=== PATIENT | female | born 1935 | race Caucasian/White ===

== ENCOUNTER 2020-08-11 22:59 | Emergency (ER) | payer MEDICARE, SELFPAY ==
[2020-08-11 23:09] VITALS: BP 209/92; PULSE 95; RESP 16; TEMP 36.8; O2SAT 96; BMI 22.8
[2020-08-11 23:43] VITALS: BP 209/97; PULSE 87; RESP 16; TEMP 36.8; O2SAT 94
--- NOTE | 2020-08-11 23:55 | ED_ITS ---
HPI - General Adult General: Chief complaint: General Medical Stated complaint: high BP/head ache Time Seen by Provider: 08/11/20 23:24 Source: patient and family Mode of arrival: ambulatory Limitations: no limitations History of Present Illness: HPI narrative: Patient is an 84-year-old female who presents to ED today along with her son for complaints of hypertension. Patient tells me several hours ago she began not feeling well . Patient is not able to tell me any specific complaints related to not feeling well apart from she did notice a headache. Asked her several times but could not elaborate further on what she means by not feeling well . She did state she felt anxious. Patient states she never had any episodes of chest pain, shortness of breath, difficulty breathing. Patient tells me she takes 1/2 of a 2.5mg lisinopril daily for her HTN. She states she normally does not check her blood pressure at home however earlier today she did and states it was 200s/100s so decided to come to ED for evaluation. Upon initial assessment she does tell me she is feeling better-less anxious and headache has improved slightly. PMH significant for: hypothyroidism, HTN, anxiety, and chronic back pain Onset (ago): hour(s) Relieving factors: none Exacerbating factors: none Associated symptoms: Reports headache(s); Deny chest pain, confusion, diaphoresis, dyspnea, malaise, nausea, rash, palpitations, syncope or vomiting Treatments prior to arrival: none Review of Systems Const: Denies: fever(s), chills, body aches, change in appetite, change in weight, fatigue, malaise, night sweats, diaphoresis or change in sleep pattern Eyes: Denies: change in vision, blurry vision, photophobia, eye discomfort, floaters or seeing flashes Card: Denies: chest pain, palpitations, irregular heart rhythm, edema, swelling of feet/ankles, lightheadedness, syncope, pre-syncope, dyspnea on exertion, orthopnea, leg pain with exertion or acrocyanosis Resp: Denies: dyspnea, productive cough, non-productive cough, hemoptysis or chest congestion GI: Denies: abdominal pain, nausea, vomiting or diarrhea : Denies: flank pain, dysuria or hematuria Musc: Denies: neck pain, back pain, extremity pain, extremity swelling, joint pain or joint swelling Skin/Breast: Denies: rash Neuro: Reports: headache(s); Denies: numbness in extremities, weakness in extremities, sensory changes, lack of coordination, difficulty walking, dizziness, confusion, behavioral changes, Slurred speech present, difficulty communicating thoughts or seizure-like activity Physical Exam Const: COMMON NORMALS: no acute distress, average body habitus, patient oriented x3, no limitations, healthy appearing, alert and well nourished GE NERAL APPEARANCE: cooperative ORIENTATION/CONSCIOUSNESS: Yes awake, Yes oriented to person, Yes oriented to place and Yes oriented to time Resp: COMMON NORMALS: normal respiratory effort and clear to auscultation bilaterally AUSCULTATION: clear to auscultation bilaterally Cardio: COMMON NORMALS: regular rate and regular rhythm RATE: regular rate RHYTHM: regular rhythm GI: COMMON NORMALS: Normal to inspection, nondistended, normoactive bowel sounds present, Soft to palpation, non-tender, No hepatosplenomegaly present and no masses INSPECTION: Yes normal to inspection PALPATION: Yes Soft to palpation, Yes No hepatosplenomegaly present and No Pulsatile mass present Back/Pelvis: COMMON NORMALS: thoracic and lumbar spine normal to inspection, no thoracic nor lumbar tenderness and thoraco-lumbar ROM normal Extremity: COMMON NORMALS: normal to inspection Neuro: SIMONE COMA SCALE: document GCS findings [place] coma scale eye opening: Spontaneous Simone coma scale verbal response: Orientated [place] coma scale motor response: Obey commands Simone coma scale total score: 15 COMMON NORMALS: patient oriented x3, CN's II-XII intact bilaterally, moves all extremities, no focal motor deficits and no sensory deficits noted SENSORIUM/ORIENTATION: Yes alert, Yes oriented to person, Yes oriented to place and Yes oriented to time Skin: COMMON NORMALS: no rashes or lesions noted GENERAL SKIN EXAM: no rashes or lesions noted Course Vital Signs: Vital signs: Vital Signs Temperature 98.2 F 08/12/20 00:13 Pulse Rate 87 08/12/20 00:13 Respiratory Rate 16 08/12/20 00:13 Blood Pressure 182/75 08/12/20 01:00 Pulse Oximetry 94 08/12/20 00:13 MDM - General Adult MDM Narrative: Medical decision making narrative: Patient's vitals are stable. Labs are non-concerning. UA with possible infection however she is completely asymptomatic. Will culture and can call if positive. EKG without ischemic changes. CXR normal. CT head normal. Blood pressure down with meds here. Recommend she start taking her full 2.5mg lisinopril dose and keep blood pressure log to followup with PCP within a week so they can make adjustments. Patient and son verbalize understanding. Return to ED precautions given. Lab Data: Attestation: I reviewed the patient's lab results. Labs: Lab Results 08/12/20 08/12/20 08/12/20 Range/Units 00:24 00:24 00:24 WBC 4.7 (4.0-10.0) 10^3/ uL RBC 4.68 (4.1-5.3) 10^6/u L Hgb 13.5 (11.5-15.3) g/dL Hct 40.3 (37.0-47.0) % MCV 86.1 (81-99) fL MCH 28.8 (28.0-34.0) pg MCHC 33.5 (30.0-36.0) g/dL RDW 12.3 (12.1-15.1) % Plt Count 266 (130-400) 10^3/c mm MPV 8.9 (7.4-10.4) fL Neut % (Auto) 56.0 % Lymph % (Auto) 31.8 % [place] % (Auto) 10.7 % Eos % (Auto) 0.9 % Baso % (Auto) 0.2 % Neut # (Auto) 2.62 (1.8-7.7) 10^3/u L Lymph # (Auto) 1.5 (0.8-4.8) 10^3/u L [place] # (Auto) 0.5 (0.2-0.9) 10^3/u L Eos # (Auto) 0.0 (0.0-0.8) 10^3/u L Baso # (Auto) 0.0 (0.0-0.1) 10^3/u L Nucleated RBC % (a uto) 0 % Nucleated RBCs # 0.0 /100WBC Sodium 137 (136-145) mmol/L Potassium 4.1 (3.5-5.1) mmol/L Chloride 103 (98-107) mmol/L Carbon Dioxide 25 (22-29) mmol/L Anion Gap 13.1 (5-19) BUN 17 (8-23) mg/dL Creatinine 0.6 (0.5-0.9) mg/dL GFR Calculation Not Reportable Glucose 111 (65-115) mg/dL Calculated Osmolal ity 286 (285-295) mOsm/k g Calcium 9.1 (8.5-10.5) mg/dL Total Bilirubin 0.3 (0.15-1.2) mg/dL AST 17 (0-32) U/L ALT 14 (0-33) U/L Alkaline Phosphata se 98 (35-105) IU/L Troponin T Baselin e 6 (0-10) ng/L Total Protein 7.1 (6.6-8.7) g/dL Albumin 3.7 (3.5-5.2) g/dL Globulin 3.4 (1.3-4.6) g/dL Urine Color (Yellow) Urine Appearance (CLEAR) Urine pH (5-7) Ur Specific Gravit y (1.005-1.030) Urine Protein (Negative) Urine Glucose (UA) (Normal) Urine Ketones (Negative) Urine Blood (Negative) Urine Nitrate (Negative) Urine Bilirubin (Negative) Urine Urobilinogen (Negative) mg/dL Ur Leukocyte Gin ase (Negative) Urine RBC (0-2) /hpf Urine WBC (0-5) /hpf Ur Squamous Epith Cells (0-5) /hpf Amorphous Sediment Urine Bacteria (NONE) /hpf 08/12/20 Range/Units 01:07 WBC (4.0-10.0) 10^3/ uL RBC (4.1-5.3) 10^6/u L Hgb (11.5-15.3) g/dL Hct (37.0-47.0) % MCV (81-99) fL MCH (28.0-34.0) pg MCHC (30.0-36.0) g/dL RDW (12.1-15.1) % Plt Count (130-400) 10^3/c mm MPV (7.4-10.4) fL Neut % (Auto) % Lymph % (Auto) % [place] % (Auto) % Eos % (Auto) % Baso % (Auto) % Neut # (Auto) (1.8-7.7) 10^3/u L Lymph # (Auto) (0.8-4.8) 10^3/u L [place] # (Auto) (0.2-0.9) 10^3/u L Eos # (Auto) (0.0-0.8) 10^3/u L Baso # (Auto) (0.0-0.1) 10^3/u L Nucleated RBC % (a uto) % Nucleated RBCs # /100WBC Sodium (136-145) mmol/L Potassium (3.5-5.1) mmol/L Chloride (98-107) mmol/L Carbon Dioxide (22-29) mmol/L Anion Gap (5-19) BUN (8-23) mg/dL Creatinine (0.5-0.9) mg/dL GFR Calculation Glucose (65-115) mg/dL Calculated Osmolal ity (285-295) mOsm/k g Calcium (8.5-10.5) mg/dL Total Bilirubin (0.15-1.2) mg/dL AST (0-32) U/L ALT (0-33) U/L Alkaline Phosphata se (35-105) IU/L Troponin T Baselin e (0-10) ng/L Total Protein (6.6-8.7) g/dL Albumin (3.5-5.2) g/dL Globulin (1.3-4.6) g/dL Urine Color Yellow (Yellow) Urine Appearance Sl hazy (CLEAR) Urine pH 7 (5-7) Ur Specific Gravit y 1.005 (1.005-1.030) Urine Protein Neg (Negative) Urine Glucose (UA) Norm (Normal) Urine Ketones Negative (Negative) Urine Blood 3+ H (Negative) Urine Nitrate Negative (Negative) Urine Bilirubin Neg (Negative) Urine Urobilinogen Norm (Negative) mg/dL Ur Leukocyte Gin ase Negative (Negative) Urine RBC 5-10 H (0-2) /hpf Urine WBC 25-40 H (0-5) /hpf Ur Squamous Epith Cells 0-4 H (0-5) /hpf Amorphous Sediment Not Reportable Urine Bacteria 2+ H (NONE) /hpf Imaging Data^: CT Head: Radiologist's impression: [address] [id number] Scan ReportSigned Patient: LindyJosue edgara NUnit #: [id number]: 1935cct#:[id number]/Sex: 84 / FADM Date: 08/11/20Loc: ERRoom/Bed:Attending Dr: Ordering Provider/Ordering MD: Caridad Ortiz Date of Service: 08/12/20 Procedure(s): CT head wo con* [id number] Accession Number(s): [id number] Report Number: [id number] PROCEDURE INFORMATION: Exam: CT Head Without Contrast Exam date and time: 08/12/2020 12:17 AM Age: 84 years old Clinical indication: Pain; Vascular; Patient HX: Headache with hypertension TECHNIQUE: Imaging protocol: Computed tomography of the head without contrast. Radiation optimization: All CT scans at this facility use at least one of these dose optimization techniques: automated exposure control; mA and/or kV adjustment per patient size (includes targeted exams where dose is matched to clinical indication); or iterative reconstruction. COMPARISON: No relevant prior studies available. RADIATION DOSE METRICS: Total DLP (mGy-cm): 851.01 FINDINGS: Brain: There is diffuse cerebral atrophy and chronic microvascular white matter disease. There is no acute intracranial hemorrhage. Cerebral ventricles: There is moderate ex vacuo dilation of the lateral ventricles. Basal cisterns are unremarkable. Paranasal sinuses: The paranasal sinuses are clear. Mastoid air cells: The mastoid air cells are clear. Bones/joints: The calvarium is intact. Soft tissues: The visible extracranial soft tissues are unremarkable. CT/CT head wo con* [id number] IMPRESSION: No acute intracranial abnormality. Radiation Dose CTDIVOL = (mGy): DLP = 851.01 (mGy-cm) Dictated By:North Lombardo MDSigned By:North Lombardo MDSigned Date/Time:08/12/20 0103DD/ 0102 CXR: Radiologist's impression: [facility] [address] [place] [address] XRay Report Signed Patient: Brynn Israel Unit #: [id number] : 1935 Age/Sex: 84 / F ADM Date: 08/11/20 Loc: ER Room/Bed: Attending Dr: Ordering Provider/Ordering MD: Caridad Ortiz Date of Service: 08/12/20 Procedure(s): XR chest 1V portable [id number] Accession Number(s): [id number] Report Number: [id number] PROCEDURE INFORMATION: Exam: XR Chest Exam date and time: 08/12/2020 12:18 AM Age: 84 years old Clinical indication: Other: Hypertensive TECHNIQUE: Imaging protocol: XR of the chest. Views: 1 view. COMPARISON: No relevant prior studies available. FINDINGS: Lungs: Low lung volumes. Crowding of central interstitial markings. No focal consolidation. Pleural spaces: There is no pleural effusion or pneumothorax. Heart/Mediastinum: Cardiomediastinal contours are unremarkable. Bones/joints: Bones are unremarkable. XR/XR chest 1V portable [id number] IMPRESSION: No acute findings. Dictated By: North Lombardo MD Signed By: North Lombardo MD Signed Date/Time: 08/12/20103 DD/ 2 EKG Data^: EKG 1: EKG interpretation date: 08/12/20 EKG interpretation time: 00:17 Interpretation: Sinus rhythm Rate [address] elevation or depression changes noted Computer generated interpretation: Head CT 08/12/20 00:17 IMPRESSION: No acute intracranial abnormality. Radiation Dose CTDIVOL = (mGy): DLP = 851.01 (mGy-cm) Chest X-Ray 08/12/20 00:18 IMPRESSION: No acute findings. EKG 2: EKG interpretation date: 08/12/20 EKG interpretation time: 01:56 Interpretation: Sinus bradycardia Rate [address] elevation depression changes noted No acute changes were noted with EKG performed earlier on same visit Computer generated interpretation: Head CT 08/12/20 00:17 IMPRESSION: No acute intracranial abnormality. Radiation Dose CTDIVOL = (mGy): DLP = 851.01 (mGy-cm) Chest X-Ray 08/12/20 00:18 IMPRESSION: No acute findings. Discharge Plan Discharge Patient Disposition: Home Clinical Impression: Hypertension Qualifiers: Hypertension type: essential hypertension Qualified Code(s): I10 - Essential (primary) hypertension Condition: Stable Discharge Orders: Discharge ED (Routine); Ordered 08/12/20 Ordered By: Caridad Ortiz Referrals: Francisco Monsivais MD [Primary Care Provider] - Patient Instructions: Chronic Hypertension (ED), Hypertension (ED) Activity Restrictions/Additional Instructions: As we discussed please start taking your full 2.5 mg lisinopril dose. Keep a blood pressure log twice daily and follow-up with primary care within a week to discuss results. Please return to the emergency department for severe headache, chest pain, shortness of breath, difficulty breathing, visual changes, lightheadedness/dizziness, or passing out episodes. Coding Level of Care Code ED Circle Saw Operator for Chg Fwd Exam Comprehensive
[2020-08-12 00:13] VITALS: BP 175/87; PULSE 87; RESP 16; TEMP 36.8; O2SAT 94
--- NOTE | 2020-08-12 00:17 | CTR_ITS ---
PROCEDURE INFORMATION: Exam: CT Head Without Contrast Exam date and time: 08/12/2020 12:17 AM Age: 84 years old Clinical indication: Pain; Vascular; Patient HX: Headache with hypertension TECHNIQUE: Imaging protocol: Computed tomography of the head without contrast. Radiation optimization: All CT scans at this facility use at least one of these dose optimization techniques: automated exposure control; mA and/or kV adjustment per patient size (includes targeted exams where dose is matched to clinical indication); or iterative reconstruction. COMPARISON: No relevant prior studies available. RADIATION DOSE METRICS: Total DLP (mGy-cm): 851.01 FINDINGS: Brain: There is diffuse cerebral atrophy and chronic microvascular white matter disease. There is no acute intracranial hemorrhage. Cerebral ventricles: There is moderate ex vacuo dilation of the lateral ventricles. Basal cisterns are unremarkable. Paranasal sinuses: The paranasal sinuses are clear. Mastoid air cells: The mastoid air cells are clear. Bones/joints: The calvarium is intact. Soft tissues: The visible extracranial soft tissues are unremarkable. CT/CT head wo con* [id number] IMPRESSION: No acute intracranial abnormality. Radiation Dose CTDIVOL = (mGy): DLP = 851.01 (mGy-cm)
--- NOTE | 2020-08-12 00:18 | XRR_ITS ---
PROCEDURE INFORMATION: Exam: XR Chest Exam date and time: 08/12/2020 12:18 AM Age: 84 years old Clinical indication: Other: Hypertensive TECHNIQUE: Imaging protocol: XR of the chest. Views: 1 view. COMPARISON: No relevant prior studies available. FINDINGS: Lungs: Low lung volumes. Crowding of central interstitial markings. No focal consolidation. Pleural spaces: There is no pleural effusion or pneumothorax. Heart/Mediastinum: Cardiomediastinal contours are unremarkable. Bones/joints: Bones are unremarkable. XR/XR chest 1V portable [id number] IMPRESSION: No acute findings.
[2020-08-12 00:31] LABS: Basophils % 0.2 %; Eosinophils % 0.9 %; Hematocrit 40.3 % (37.0-47.0); Hemoglobin 13.5 g/dL (11.5-15.3); Lymphocytes # 1.5 10^3/uL (0.8-4.8); Lymphocytes % 31.8 %; Mean Corpuscular HGB Conc 33.5 g/dL (30.0-36.0); Mean Corpuscular Hemoglobin 28.8 pg (28.0-34.0); Mean Corpuscular Volume 86.1 fL (81-99); Mean Platelet Volume 8.9 fL (7.4-10.4); Monocytes # 0.5 10^3/uL (0.2-0.9); Monocytes % 10.7 %; Neutrophils # 2.62 10^3/uL (1.8-7.7); Nucleated Red Blood Cells % 0 %; Platelet Count 266 10^3/cmm (130-400); Red Blood Count 4.68 10^6/uL (4.1-5.3); Red Cell Distribution Width 12.3 % (12.1-15.1); White Blood Count 4.7 10^3/uL (4.0-10.0)
[2020-08-12 00:50] LABS: Troponin(5th) Baseline 6 ng/L (0-10)
[2020-08-12 00:53] LABS: Alanine Aminotransferase 14 U/L (0-33); Albumin Level 3.7 g/dL (3.5-5.2); Alkaline Phosphatase 98 IU/L (35-105); Anion Gap 13.1 (5-19); Aspartate Amino Transferase 17 U/L (0-32); Blood Urea Nitrogen 17 mg/dL (8-23); Calcium 9.1 mg/dL (8.5-10.5); Carbon Dioxide 25 mmol/L (22-29); Chloride 103 mmol/L (98-107); Globulin 3.4 g/dL (1.3-4.6); Glucose 111 mg/dL (65-115); Osmolality Calculated 286 mOsm/kg (285-295); Potassium 4.1 mmol/L (3.5-5.1); Sodium 137 mmol/L (136-145); Total Bilirubin 0.3 mg/dL (0.15-1.2); Total Protein 7.1 g/dL (6.6-8.7)
[2020-08-12 01:00] VITALS: BP 182/75
[2020-08-12] MEDS: cloNIDine 0.1 mg Tablet PO (01:00)
--- NOTE | 2020-08-12 01:10 | PC.NURSE ---
in and out cath completed for UA. pt tolerated well
[2020-08-12 01:21] LABS: Add Urine Culture? Yes; Add Urine Microscopic? YES; Bacteria Urine 2+ /hpf; Bilirubin Urine Neg (Negative); Blood Urine 3+ (Negative); Glucose Urine UA Norm (Normal); Ketones Urine Negative (Negative); Leukocyte Esterase Urine Negative (Negative); Nitrate Urine Negative (Negative); Protein Urine Neg (Negative); Specific Gravity, Urine 1.005 (1.005-1.030); Squamous Epithelial Cell Urine 0-4 /hpf (0-5); Urine Appearance SL Hazy (CLEAR); Urine Color Yellow (Yellow); Urobilinogen Urine Norm (Negative); WBC Urine 25-40 /hpf (0-5); pH Urine 7 (5-7)
[2020-08-12] MEDS: labetalol 5 mg/mL SDV 20mL 10 MG IVP (01:39)
--- NOTE | 2020-08-12 01:55 | ECG_ITS ---
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 Measurements Intervals [place] Rate: 57 P: 28 WI: 163 QRS: 17 QRSD: 96 T: 58 QT: 416 QTc: 406 Interpretive Statements SINUS BRADYCARDIA No previous ECG available for comparison Electronically Signed On 08-12-2020 18:30:55 CDT by Diego Zayas M.D. [email or web address]
[2020-08-12 02:00] VITALS: BP 140/53; PULSE 56; O2SAT 94
[2020-08-12 02:03] VITALS: BP 140/53; PULSE 58; RESP 16; TEMP 36.8; O2SAT 94
[2020-08-12 02:11] VITALS: BP 140/53; PULSE 58; RESP 16; TEMP 36.8; O2SAT 94
== END 2020-08-12 02:12 | disposition home or self-care (01) ==
PROVIDERS: Emergency Provider Physician Assistant; PCP Family Medicine
DX: I10 Essential (primary) hypertension (principal)
CPT/HCPCS: 70450; 71045; 80053; 81001; 84484; 85025; 87086; 93005; 96374; 99284; J3490

== ENCOUNTER 2021-10-06 22:27 | Observation (INO) | payer MEDICARE, SELFPAY ==
--- NOTE | 2021-10-06 22:33 | W.ED.CHESTPA ---
HPI - Chest Pain General: Chief Complaint: Chest Pain Stated Complaint: Chest tightness/Sob/Lower back pain Time Seen by Provider: 10/06/21 22:29 History of Present Illness: Ms. Israel is an 85-year-old lady with history of hypertension who presents to the emergency department due to back pain and chest pain. She reports onset of bilateral back pain starting yesterday without known specific provoking factors. It is subsequently radiated up to her chest today and she notes pressure in her chest. Mild associated shortness of breath. No other typical cardiac features. Denies frequent episodes of similar in the past. Intensity symptoms is moderate. Course has persisted. No other specific changes in health, exacerbating, or alleviating factors identified. Onset (ago): day(s) Timing of current episode: constant Prior episodes: No Onset: during rest Severity: moderate Quality: heaviness Relieving factors: nothing Exacerbating factors: nothing Associated symptoms: Reports dyspnea Review of Systems General: Reports: 10 or more systems reviewed and unremarkable except in HPI and below Resp: Reports: dyspnea PFSH ED PFSH: Medical History Anxiety and depression Hypertension Hypothyroidism Primary ureteral transitional cell carcinoma Large left distal ureteral mass confirmed via biopsy to be high-grade TCCA. Diagnosed September 2021 Urolithiasis Obstructing right distal ureteral stone required endoscopic laser lithotripsy September 2021. Transient stent Surgical History History of cholecystectomy History of hysterectomy Family History Son Diabetes Father , AT AGE 80 No problems noted. Mother , IN HER 76 MVA (motor vehicle accident) Social History Smoking and tobacco status: never smoked Second hand smoke exposure: No Alcohol intake: never Marital status: / Current occupational status: retired History of recent travel: No Physical Exam Const: COMMON NORMALS: alert GENERAL APPEARANCE: cooperative and well developed HENMT: COMMON NORMALS: normocephalic and atraumatic HEAD & SCALP: normocephalic and atraumatic Eye: COMMON NORMALS: conjunctivae normal CONJUNCTIVA: Yes conjunctivae normal SCLERA: sclerae normal Neck/C-Spine: COMMON NORMALS: supple GENERAL: Yes trachea midline Resp: COMMON NORMALS: normal respiratory effort and clear to auscultation bilaterally EFFORT & INSPECTION: Yes able to speak in complete sentences AUSCULTATION: clear to auscultation bilaterally Cardio: COMMON NORMALS: regular rate and regular rhythm RATE: regular rate RHYTHM: regular rhythm GI: COMMON NORMALS: Soft to palpation PALPATION: Yes Soft to palpation and No Tenderness to palpation present (GI) PERCUSSION: normal to percussion Extremity: GENERAL: Yes normal exam except as noted and No edema Neuro: COMMON NORMALS: moves all extremities SENSORIUM/ORIENTATION: Yes alert and No Orientation impaired Psych: COMMON NORMALS: mental status grossly normal and Normal thought process present THOUGHT PROCESS: Normal thought process present Course ED course: - Patient was seen and evaluated by me at bedside - Patient placed on cardiac monitors, IV access obtained - Initial evaluation notable for exam as above. Pain not worsened by palpation on physical exam. - Labs and xrays personally interpreted by me -Aspirin and symptom treatment ordered. - Labs notable for no leukocytosis, normal hemoglobin. Metabolic panel with some evidence of intravascular dehydration. Elevated TSH with mildly low free T4. Urinalysis with evidence of urinary tract infection and hematuria. - Imaging notable for no lobar consolidation or pneumothorax. CT chest abdomen pelvis without acute chest finding. There is severe left hydroureteronephrosis secondary to ovoid soft tissue filling defect in the distal left ureter raising concern for neoplasm. There is also moderate right hydronephrosis secondary to 7 mm stone in the distal right ureter. Results discussed with patient -Antibiotic ordered. Discussed with urology. - Upon serial reexamination after treatment the patient was somewhat improved - Based on patient history, evaluation, and testing as interpreted the most likely cause of the patient's condition is infected kidney stone and newly identified ureteral mass likely cancerous - The results of ED evaluation were discussed with the patient including plan for admission due to requirement for level of care not available if discharged to prevent significant worsening/deterioration. - Admitting service was contacted and Dr Melara with the hospitalist service agreed to admit the patient - Patient was admitted without further deterioration or significant events. Note: Click bubbles or prepopulated ferguson in note writing are used for assistance with data collection and billing and are inherently more limited than narrative and other text portions of this note. Please use narrative for additional clinical history and defer to narrative/free test for any case of contradictory information. If information appears in only free text or click bubble it should be considered present or absent as reported. Please contact note singer songwriter for clarifications of clinical information or contradictory information. MDM is a brief summary, contradictory or erroneous seeming information should be clarified and full note should be reviewed. Vital Signs: Vital signs: Vital Signs Temperature 97.4 F L 10/11/21 16:03 Pulse Rate 76 10/11/21 16:03 Respiratory Rate 18 10/11/21 16:03 Blood Pressure 140/75 10/11/21 16:03 Pulse Oximetry 92 10/11/21 16:03 Oxygen Delivery Me thod 10/11/21 11:27 MDM - Chest Pain Medical Decision Making 85-year-old lady presenting with back and chest pain associated with shortness of breath. Patient found to have infected kidney stone as well as likely newly discovered ureteral cancer. Started on antibiotics and admitted for definitive management with urology service consult. Medical Records I reviewed the patient's medical records. Lab Data I reviewed the patient's lab results. : 10/10/21 04:20 10/11/21 06:52 Radiology Impressions Chest X-Ray 10/06/21 22:34 IMPRESSION: Low lung volumes and bronchovascular crowding. Mild bibasilar opacities may represent atelectasis. Otherwise, no acute radiographic findings in the chest findings. Chest/Abdomen/Pelvis CT 10/07/21 02:03 IMPRESSION: No acute findings. IMPRESSION: 1. Severe left hydroureteronephrosis secondary to an ovoid soft tissue filling defect in the distal left ureter, raising concern for neoplasm, potentially a primary urothelial carcinoma. Recommend urology consultation. 2. Moderate right hydronephrosis secondary to a 7 mm stone in the distal right ureter. COMMENTS: Consistent with the [employer]'s Incidental Findings Committee white paper (J Am Sheila Radiol 2018): Any incidental renal lesion less than 1 cm or classified as too small to characterize, or any incidental cystic renal lesion characterized as simple-appearing, is likely benign. No follow-up imaging is recommended for these lesions per consensus recommendations based on imaging criteria. C-Arm Fluoroscopy 10/07/21 07:06 IMPRESSION: Distal right ureteral calculus. Placement of right ureteral stent. Lumbar Spine MRI 10/10/21 13:35 IMPRESSION: 1. Grade 2 anterolisthesis L5 on S1 with chronic spondylolysis. Moderate central canal stenosis at this level with impingement on the traversing S1 nerve roots. Moderate to severe bilateral bony foraminal narrowing. 2. Mild central canal stenosis L2-L3 and L3-L4 with narrowing of the subarticular recess bilaterally. 3. Acute appearing compression superior endplate L4 with mild loss vertebral body height measuring approximately 20%. This is stable since the recent CT 10/07/21. Mild associated edema. No significant retropulsion. 4. Chronic anterior wedging at L2 with endplate Schmorl's node. Modified Barium Swallow 10/10/21 14:17 IMPRESSION: 1. No aspiration or penetration identified. 2. Poor esophageal motility with to and fro spasm in the esophagus. 3. The patient experienced difficulty with the barium pill. The pill was retained in the distal esophagus after multiple swallowing attempts. A separate report of recommendations and findings will follow from the speech therapy service. Laboratory Results WBC 8.0 10^3/uL (4.0-10.0) 10/06/21 23:35 RBC 4.65 10^6/uL (4.1-5.3) 10/06/21 23:35 Hgb 13.9 g/dL (11.5-15.3) 10/06/21 23:35 Hct 41.8 % (37.0-47.0) 10/06/21 23:35 MCV 89.9 fl (81-99) 10/06/21 23:35 MCH 29.9 pg (28.0-34.0) 10/06/21 23:35 MCHC 33.3 g/dL (30.0-36.0) 10/06/21 23:35 RDW 12.0 % (12.1-15.1) L 10/06/21 23:35 Plt Count 265 10^3/cmm (130-400) 10/06/21 23:35 MPV 9.3 fL (7.4-10.4) 10/06/21 23:35 Neut % (Auto) 72.9 % 10/06/21 23:35 Lymph % (Auto) 16.9 % 10/06/21 23:35 [place] % (Auto) 7.9 % 10/06/21 23:35 Eos % (Auto) 1.5 % 10/06/21 23:35 Baso % (Auto) 0.3 % 10/06/21 23:35 Neut # (Auto) 5.80 10^3/uL (1.8-7.7) 10/06/21 23:35 Lymph # (Auto) 1.3 10^3/uL (0.8-4.8) 10/06/21 23:35 [place] # (Auto) 0.6 10^3/uL (0.2-0.9) 10/06/21 23:35 Eos # (Auto) 0.1 10^3/uL (0.0-0.8) 10/06/21 23:35 Baso # (Auto) 0.0 10^3/uL (0.0-0.1) 10/06/21 23:35 Nucleated RBC % (auto) 0 % 10/06/21 23:35 Nucleated RBCs # 0.0 /100WBC 10/06/21 23:35 Sodium 130 mmol/L (136-145) L 10/06/21 23:35 Potassium 4.0 mmol/L (3.5-5.1) 10/06/21 23:35 Chloride 93 mmol/L (98-107) L 10/06/21 23:35 Carbon Dioxide 28 mmol/L (22-29) 10/06/21 23:35 Anion Gap 13.0 (5-19) 10/06/21 23:35 BUN 23 mg/dL (8-23) 10/06/21 23:35 Creatinine 0.8 mg/dL (0.5-0.9) 10/06/21 23:35 GFR Calculation Not Reportable 10/06/21 23:35 Glucose 104 mg/dL (65-115) 10/06/21 23:35 Calculated Osmolality 274 mOsm/kg (285-295) L 10/06/21 23:35 Calcium 10.3 mg/dL (8.5-10.5) 10/06/21 23:35 Total Bilirubin 0.2 mg/dL (0.15-1.2) 10/06/21 23:35 AST 21 U/L (0-32) 10/06/21 23:35 ALT 23 U/L (0-33) 10/06/21 23:35 Alkaline Phosphatase 129 IU/L (35-105) H 10/06/21 23:35 Troponin T Baseline 7 ng/L (0-10) 10/06/21 23:35 Troponin T 120 Minute 6.47 ng/L (0-10) 10/07/21 01:25 Delta Troponin T -0.53 ABS# (0-10) L 10/07/21 01:25 NT-Pro-B Natriuret Pep 191 pg/mL (0-450) 10/06/21 23:35 Total Protein 7.7 g/dL (6.6-8.7) 10/06/21 23:35 Albumin 3.6 g/dL (3.5-5.2) 10/06/21 23:35 Globulin 4.1 g/dL (1.3-4.6) 10/06/21 23:35 Lipase 34 U/L (13-60) 10/06/21 23:35 TSH 29.17 uIU/mL (0.27-4.20) H 10/06/21 23:35 Free T4 0.78 ng/dL (0.82-1.77) L 10/06/21 23:35 Urine Color Yellow (Yellow) 10/07/21 03:15 Urine Appearance Cloudy (CLEAR) 10/07/21 03:15 Urine pH 6 (5-7) 10/07/21 03:15 Ur Specific [place] 1.005 (1.005-1.030) 10/07/21 03:15 Urine Protein Trace (Negative) 10/07/21 03:15 Urine Glucose (UA) Norm (Normal) 10/07/21 03:15 Urine Ketones Negative (Negative) 10/07/21 03:15 Urine Blood 3+ (Negative) H 10/07/21 03:15 Urine Nitrate Negative (Negative) 10/07/21 03:15 Urine Bilirubin Neg (Negative) 10/07/21 03:15 Urine Urobilinogen Norm mg/dL (Negative) 10/07/21 03:15 Ur Leukocyte Esterase 2+ (Negative) H 10/07/21 03:15 Urine RBC 5-10 /hpf (0-2) H 10/07/21 03:15 Urine WBC Too numerous to cnt /hpf (0-5) H 10/07/21 03:15 Ur Squamous Epith Cells 0-4 /hpf (0-5) H 10/07/21 03:15 Amorphous Sediment Not Reportable 10/07/21 03:15 Urine Bacteria 2+ /hpf (NONE) H 10/07/21 03:15 SARS-CoV-2 Ag (Rapid) Negative (Negative) 10/06/21 23:26 Critical Care Time Critical Care Time: Critical Care Time: Yes Total Critical Care Time: 35 Attestation: Due to a high probability of clinically significant, possibly life threatening deterioration, the patient required my highest level of attention and preparedness to intervene emergently and I personally spent this critical care time directly and personally managing the patient. This critical care time included obtaining a history; examining the patient; pulse oximetry; ordering and review of laboratory and imaging studies; arranging urgent treatment with development of a management plan; evaluation of patient's response to treatment; frequent reassessment; and, discussions with other providers as applicable. It was exclusive of separately billable procedures. Primary system involved is genitourinary and infectious Discharge Plan Discharge Patient Disposition: Admitted As Inpatient Admit Provider: Chi Melara Clinical Impression: Chest pain, Urinary tract infection, Right ureteral stone, Mass of ureter Condition: Stable Discharge Diet: Soft Mechanical Discharge Activity: Limit activity as instructed Coding Level of Care Code ED Instrument Maker for Seth Maza
--- NOTE | 2021-10-06 22:34 | XRR_ITS ---
PROCEDURE INFORMATION: Exam: XR Chest Exam date and time: 10/06/2021 11:21 PM Age: 85 years old Clinical indication: Shortness of breath; Chest pressure; Patient HX: C/O chest pain with SOB. History of breast cancer. TECHNIQUE: Imaging protocol: Radiologic exam of the chest. Views: 1 view. COMPARISON: CR XR chest 1V portable [id number] 08/12/2020 12:30 AM FINDINGS: Lungs: Low lung volumes and bronchovascular crowding. Mild bibasilar opacities, likely atelectasis.. Pleural spaces: No large pleural effusion. No pneumothorax. Heart/Mediastinum: The cardiomediastinal silhouette is stable in appearance. The thoracic aorta atherosclerotic Bones/joints: There are degenerative changes of the spine and shoulder joints. XR/XR chest 1V portable [id number] IMPRESSION: Low lung volumes and bronchovascular crowding. Mild bibasilar opacities may represent atelectasis. Otherwise, no acute radiographic findings in the chest findings.
--- NOTE | 2021-10-06 22:41 | ECG_ITS ---
[facility] Test Date: 2021-10-06 Pat Name: Brynn Israel Department: Room: Gender: Female Pavilion Cutter: : 1935 Requested By: Tulio Mead Order Number: [id number] Steven MD: Terell Ford M.D. Measurements Intervals [place] Rate: 75 P: 37 DC: 145 QRS: 5 QRSD: 87 T: 53 QT: 344 QTc: 386 Interpretive Statements SINUS RHYTHM, 75 bpm Compared to ECG 08/12/2020 01:56:02 Sinus bradycardia no longer present Electronically Signed On 10-07-2021 18:04:01 CDT by Terell Ford M.D. [id number] f
[2021-10-06 22:43] VITALS: PULSE 75; RESP 16; TEMP 37.2; O2SAT 98
[2021-10-06] MEDS: aspirin 81 mg Chew Tablet 324 MG PO (23:24)
[2021-10-06 23:44] LABS: Basophils % 0.3 %; Eosinophils # 0.1 10^3/uL (0.0-0.8); Eosinophils % 1.5 %; Hematocrit 41.8 % (37.0-47.0); Hemoglobin 13.9 g/dL (11.5-15.3); Lymphocytes # 1.3 10^3/uL (0.8-4.8); Lymphocytes % 16.9 %; Mean Corpuscular HGB Conc 33.3 g/dL (30.0-36.0); Mean Corpuscular Hemoglobin 29.9 pg (28.0-34.0); Mean Corpuscular Volume 89.9 fl (81-99); Mean Platelet Volume 9.3 fL (7.4-10.4); Monocytes # 0.6 10^3/uL (0.2-0.9); Monocytes % 7.9 %; Neutrophils % 72.9 %; Nucleated Red Blood Cells % 0 %; Platelet Count 265 10^3/cmm (130-400); Red Blood Count 4.65 10^6/uL (4.1-5.3)
[2021-10-06 23:49] VITALS: BP 175/65; PULSE 91; RESP 22; O2SAT 95
[2021-10-07] VITALS (26 sets, daily range): BP systolic 122–192; BP diastolic 61–83; PULSE 54–82; RESP 12–21; TEMP 36.2–37.1; O2SAT 91–97
--- NOTE | 2021-10-07 | SCC_ITS ---
Procedure done: 1. Cystoscopy, RIGHT: Retrograde, ureteroscopy, laser, stent 2. LEFT: Retrograde, ureteroscopy, biopsy of ureteral mass 3. Urologic fluoroscopy with intraoperative interpretation exclusive of radiology. 82.7 seconds of fluoroscopic guidance, for a cumulative dose of 13.90 mGy, was provided to Dr. Mays by the radiology department. C-arm images of the abdomen were saved for the patient's permanent record. BLAIRD
[2021-10-07 00:03] LABS: SARS Covid-2 Antigen Negative (Negative)
[2021-10-07 00:22] LABS: Troponin(5th) Baseline 7 ng/L (0-10)
[2021-10-07 00:32] LABS: Alanine Aminotransferase 23 U/L (0-33); Albumin Level 3.6 g/dL (3.5-5.2); Alkaline Phosphatase 129 IU/L (35-105); Aspartate Amino Transferase 21 U/L (0-32); Blood Urea Nitrogen 23 mg/dL (8-23); Calcium 10.3 mg/dL (8.5-10.5); Carbon Dioxide 28 mmol/L (22-29); Chloride 93 mmol/L (98-107); Globulin 4.1 g/dL (1.3-4.6); Glucose 104 mg/dL (65-115); Lipase 34 U/L (13-60); NT Pro B Type Natriuretic Pept 191 pg/mL (0-450); Osmolality Calculated 274 mOsm/kg (285-295); Sodium 130 mmol/L (136-145); Thyroid Stimulating Hormone 29.17 uIU/mL (0.27-4.20); Total Bilirubin 0.2 mg/dL (0.15-1.2); Total Protein 7.7 g/dL (6.6-8.7)
--- NOTE | 2021-10-07 00:34 | ECG_ITS ---
[facility] Test Date: 2021-10-07 Pat Name: Brynn Israel Department: Room: Gender: Female Nick Setter: : 1935 Requested By: Tulio Mead Order Number: [id number] Steven MD: Terell Ford M.D. Measurements Intervals [address] Rate: 68 P: 32 ID: [id number] QRS: 14 QRSD: 97 T: 52 QT: 376 QTc: 401 Interpretive Statements SINUS RHYTHM Compared to ECG 10/06/2021 22:41:03 No significant changes Electronically Signed On 10-07-2021 18:30:44 CDT by Terell Ford M.D. [id number]
[2021-10-07 01:21] LABS: Free T4 Free Thyroxine 0.78 ng/dL (0.82-1.77)
[2021-10-07 02:02] LABS: Troponin 5 2HR 6.47 ng/L (0-10)
--- NOTE | 2021-10-07 02:03 | CTR_ITS ---
PROCEDURE INFORMATION: Exam: CT Chest With Contrast; Diagnostic Exam date and time: 10/07/2021 2:16 AM Age: 85 years old Clinical indication: Abdominal pain; Generalized; Chest pressure; Prior surgery; Surgery type: Hysterectomy. Gb. Bladder sling. Patient HX: C/O chest, abd, and back pain. History of breast cancer. ; Additional info: Abd and chest pain, back pain, SOB TECHNIQUE: Imaging protocol: Diagnostic computed tomography of the chest with contrast. Radiation optimization: All CT scans at this facility use at least one of these dose optimization techniques: automated exposure control; mA and/or kV adjustment per patient size (includes targeted exams where dose is matched to clinical indication); or iterative reconstruction. Contrast material: OMNI 350; Contrast volume: 80 ml; Contrast route: INTRAVENOUS (IV); COMPARISON: CR (CHEST, ) 10/06/2021 11:21 PM RADIATION DOSE METRICS: Total DLP (mGy-cm): 771.01 FINDINGS: Lungs: Mild bibasilar atelectasis. Pleural spaces: Unremarkable. No pneumothorax. No pleural effusion. Heart: Unremarkable. No cardiomegaly. No pericardial effusion. Lymph nodes: Unremarkable. No enlarged lymph nodes. Vasculature: Unremarkable. No aortic aneurysm. Bones/joints: Unremarkable. No acute fracture. Soft tissues: Unremarkable. PROCEDURE INFORMATION: Exam: CT Abdomen And Pelvis With Contrast Exam date and time: 10/07/2021 2:16 AM Age: 85 years old Clinical indication: Abdominal pain; Generalized; Chest pressure; Prior surgery; Surgery type: Hysterectomy. Gb. Bladder sling. Patient HX: C/O chest, abd, and back pain. History of breast cancer. ; Additional info: Abd and chest pain, back pain, SOB TECHNIQUE: Imaging protocol: Computed tomography of the abdomen and pelvis with contrast. Radiation optimization: All CT scans at this facility use at least one of these dose optimization techniques: automated exposure control; mA and/or kV adjustment per patient size (includes targeted exams where dose is matched to clinical indication); or iterative reconstruction. Contrast material: OMNI 350; Contrast volume: 80 ml; Contrast route: INTRAVENOUS (IV); COMPARISON: CR (CHEST, ) 10/06/2021 11:21 PM RADIATION DOSE METRICS: Total DLP (mGy-cm): 771.01 FINDINGS: Liver: Normal. No mass. Gallbladder and bile ducts: Normal. No calcified stones. No ductal dilation. Pancreas: Normal. No ductal dilation. Spleen: Normal. No splenomegaly. Adrenal glands: Normal. No mass. Kidneys and ureters: Bilateral renal cysts. Nonobstructing right renal calculi measuring up to 8 mm. There appears to be moderate right hydronephrosis secondary to a 7 mm stone in the distal right ureter. There is severe left hydroureteronephrosis secondary to an ovoid soft tissue filling defect in the distal left ureter measuring up to 2.5 cm in length. There is some adjacent urothelial thickening enhancement as well as tiny calcifications in this region. Stomach and bowel: Duodenal diverticulum. No bowel obstruction. Colonic diverticulosis without diverticulitis. Appendix: No evidence of appendicitis. Intraperitoneal space: Unremarkable. No free air. No significant fluid collection. Vasculature: Heavy burden of atherosclerotic plaque in the abdominal aorta and branch vessels. No aneurysm. Lymph nodes: Unremarkable. No enlarged lymph nodes. Urinary bladder: Unremarkable as visualized. Reproductive: Hysterectomy. Bones/joints: Remote appearing compression fractures of L2 and L4. Bilateral L5 pars defects with grade 2 anterolisthesis of L5 on S1. Soft tissues: Within normal limits. CT/CT chest abd pel w con* IMPRESSION: No acute findings. IMPRESSION: 1. Severe left hydroureteronephrosis secondary to an ovoid soft tissue filling defect in the distal left ureter, raising concern for neoplasm, potentially a primary urothelial carcinoma. Recommend urology consultation. 2. Moderate right hydronephrosis secondary to a 7 mm stone in the distal right ureter. COMMENTS: Consistent with the [employer]'s Incidental Findings Committee white paper (J Am Sheila Radiol 2018): Any incidental renal lesion less than 1 cm or classified as too small to characterize, or any incidental cystic renal lesion characterized as simple-appearing, is likely benign. No follow-up imaging is recommended for these lesions per consensus recommendations based on imaging criteria.
[2021-10-07 02:17] LABS: Troponin 5 2HR Delta -0.53 ABS# (0-10)
[2021-10-07] MEDS: iohexol 350 mg/mL 100 mL Btl IV (02:23)
[2021-10-07] MEDS: orphenadrine 30 mg/mL Inj 2 mL 60 MG IVP (03:25)
[2021-10-07] MEDS: acetaminophen 1,000 MG/100 ML PIGGYBACK 400 MG IV (03:28)
[2021-10-07 03:31] LABS: Specific Gravity, Urine 1.005 (1.005-1.030); Urine Appearance Cloudy (CLEAR); Urine Color Yellow (Yellow); pH Urine 6 (5-7)
[2021-10-07 03:32] LABS: Add Urine Culture? Yes; Add Urine Microscopic? YES; Bacteria Urine 2+ /hpf; Bilirubin Urine Neg (Negative); Blood Urine 3+ (Negative); Glucose Urine UA Norm (Normal); Ketones Urine Negative (Negative); Leukocyte Esterase Urine 2+ (Negative); Nitrate Urine Negative (Negative); Protein Urine Trace (Negative); Squamous Epithelial Cell Urine 0-4 /hpf (0-5); Urobilinogen Urine Norm (Negative); WBC Urine TOO NUMEROUS TO CNT /hpf (0-5)
--- NOTE | 2021-10-07 04:34 | ECG_ITS ---
[facility] Test Date: 2021-10-07 Pat Name: Brynn Israel Department: Room: Gender: Female Cell Attendant: : 1935 Requested By: Tulio Mead Order Number: [id number] Steven MD: Terell Ford M.D. Measurements Intervals [place] Rate: 57 P: 31 [place]: 168 QRS: 14 QRSD: 97 T: 56 QT: 430 QTc: 419 Interpretive Statements SINUS BRADYCARDIA Compared to ECG 10/07/2021 00:42:17 Sinus rhythm no longer present Electronically Signed On 10-07-2021 18:32:47 CDT by Terell Ford M.D. [email or web address] [email or web address] general health centerHIGHVIEW HE[email or web address]/store/[id number]
[2021-10-07] MEDS: piperacillin-tazobactam 3.375 GM in sodium chloride 0.9% (plus) 50 ML IV ×2 (05:08→13:12)
[2021-10-07 05:56] LABS: Troponin 5 6HR 7.91 ng/L (0-10)
[2021-10-07 05:58] LABS: Troponin 5 6HR Delta 0.91 ng/L (0-12)
--- NOTE | 2021-10-07 05:58 | PM.HP ---
Providers/Chief Complaint Admitting Physician: Chi Melara MD Primary Care Provider: Francisco Monsivais MD Chief Complaint: Chest tightness/Sob/Lower back pain History of Present Illness Brynn Israel is a 85 year old female with a past medical history of hypothyroidism, hypertension, anxiety and depression, who presents to [facility] due to chest pain, severe low back pain, constipation, difficulty swallowing. Patient tells me that she has been quite stressed recently, today in the evening, she experienced left-sided substernal chest pain, pressure-like pain, lasting a few seconds, nonradiating, no diaphoresis, no shortness of breath, no lightheadedness, it only happened the one time, she is never had chest pain before, has never had a stress test, never had an angiogram Difficulty swallowing, she is tells me that recently she has been having difficulty swallowing solids, no nausea, no vomiting, no halitosis, denies esophageal spasms She has chronic low back pain takes tramadol, she is been experiencing bilateral severe low back pain, no fevers, no chills, no lightheadedness, no dizziness no dysuria, no hematuria She also complains of severe constipation, she been taking multiple laxatives, bowel stimulants to help her bowels move, but she has not had a bowel movement Review of Systems Const: Denies: fever(s), chills, fatigue or malaise Card: Reports: chest pain; Denies: palpitations, edema or dyspnea on exertion Resp: Denies: dyspnea or non-productive cough GI: Reports: constipation; Denies: abdominal pain, nausea or vomiting : Reports: flank pain; Denies: difficulty voiding or dysuria Musc: Reports: back pain Neuro: Denies: headache(s) Endo: Denies: polyuria Medications/Allergies Allergies Allergy/AdvReac Type Severity Reaction Status Date / Time No Known Allergies Allergy Verified 10/06/21 22:45 PFSH Acute PFSH: Medical History (Updated 10/07/21 @ 06:06 by Chi Melara MD) Anxiety and depression Hypertension Hypothyroidism Surgical History (Updated 10/07/21 @ 06:05 by Chi Melara MD) History of cholecystectomy History of hysterectomy Family History (Updated 10/07/21 @ 06:05 by Chi Melara MD) Son Diabetes Social History (Updated 10/07/21 @ 06:05 by Chi Melara MD) Smoking and tobacco status: never smoked Alcohol intake: never Substance/Drug Use: never Vitals/I&O/Wt Last Vital Signs Temp 99.0 F 10/06/21 22:43 Pulse 60 10/07/21 05:44 Resp 18 10/07/21 05:44 BP 144/64 10/07/21 05:44 Pulse Ox 94 10/07/21 05:44 O2 Del Method 10/06/21 23:49 10/06/21 10/06/21 10/07/21 14:59 22:59 06:59 Intake Total 100 / 100 Balance 100 / 100 Weight last 48 hrs Weight 55.338 kg Physical Exam Const: COMMON NORMALS: no acute distress and patient oriented x3 HENMT: COMMON NORMALS: normocephalic HEAD & SCALP: normocephalic Eye: COMMON NORMALS: Equal, round and reactive pupils present and EOMs intact bilaterally Neck/C-Spine: COMMON NORMALS: no JVD Resp: COMMON NORMALS: normal respiratory effort, No retractions, No use of accessory muscles and clear to auscultation bilaterally AUSCULTATION: clear to auscultation bilaterally Cardio: COMMON NORMALS: no JVD, regular rate, regular rhythm, S1 normal heart sound present and S2 normal heart sound present RATE: regular rate RHYTHM: regular rhythm HEART SOUNDS: S1 normal heart sound present and S2 normal heart sound present GI: COMMON NORMALS: Normal to inspection, nondistended, normoactive bowel sounds present, Soft to palpation, non-tender, No hepatosplenomegaly present, no masses and no bruits PALPATION: Yes Soft to palpation and Yes No hepatosplenomegaly present Extremity: COMMON NORMALS: capillary refill normal, no clubbing, cyanosis or edema, no calf tenderness and no pedal edema Neuro: COMMON NORMALS: patient oriented x3, CN's II-XII intact bilaterally, moves all extremities and no focal motor deficits Psych: COMMON NORMALS: mental status grossly normal Data : 10/06/21 23:35 10/06/21 23:35 A&P Assessment and plan (1) Chest pain: Status: Acute (2) Urinary tract infection: Status: Acute (3) Right ureteral stone: Status: Acute (4) Mass of ureter: Status: Acute (5) Hyponatremia: Status: Acute Plan Chest pain -Atypical in nature -No acute ST-T wave changes -No significant troponin elevation -We will do cardiac echo -Full code -SCDs for DVT prophylaxis, Lovenox on hold for potential surgical intervention Right 7 mm kidney stone with hydronephrosis, urology consulted Left urothelial soft tissue mass, neoplasm versus kidney stone, with severe hydronephrosis, urology consulted -Keep n.p.o. -IV fluids -Creatinine stable UTI, antibiotics Constipation, will start her on a bowel regimen Hyponatremia likely sec to dehydration, IV fluids Difficulty swallowing, will have speech therapy evaluate patient Hypothyroidism, increase levothyroxine 200 mcg once daily Attestations Medical Necessity Statement*: Patient requires hospitalization, outpatient with observation, for chest pain, right nephrolithiasis, left of right ureter, hyponatremia, constipation, difficulty swallowing Coding Level of Care Code Acute [employer] Diagnoses Chest pain R07.9 Urinary tract infection N39.0 Right ureteral stone N20.1 Mass of ureter N28.89 Hyponatremia E87.1
--- NOTE | 2021-10-07 06:17 | USCV_ITS ---
Brynn Israel Age: 85 Gender: F : 1935 Exam Date: 10/07/2021 10:29 Ordering Phys: Chi Melara MD Technologist: Nadiya Yang Exam Location: [facility] [place] Indication: SOB BP: 148 / 61 HR: 59 Rhythm: Sinus Technical Quality: Adequate MEASUREMENTS (Male / Female) Normal Values 2D ECHO LV Diastolic Diameter PLAX 4.3 cm 4.2 - 5.9 / 3.9 - 5.3 cm LV Systolic Diameter PLAX 3.6 cm LV Chamber Size 3.6 cm IVS Diastolic Thickness 1.0 cm 0.6 - 1.0 / 0.6 - 0.9 cm IVS Systolic Thickness 1.2 cm LVPW Diastolic Thickness 1.2 cm 0.6 - 1.0 / 0.6 - 0.9 cm LVPW Systolic Thickness 1.3 cm RV Chamber Size 2.2 cm LVOT Diameter 2.0 cm LV Ejection Fraction 2D Teich 30.8 % LV Ejection Fraction MOD 2C 43.4 % LV Ejection Fraction 2C AL 42.5 % LA Diameter 3.5 cm LA Width 3.2 cm LA Height 3.2 cm RA Width 2.5 cm RA Height 2.4 cm Aorta at Sinotubular Diameter 2.4 cm IVC Diameter 1.5 cm M-MODE Aortic Annulus Diameter 3.5 cm LA Ao Ratio MM 1.2 MV E Point Septal Separation 0.3 cm DOPPLER AV Peak Velocity 158.0 cm/s LVOT Peak Velocity 100.0 cm/s AV Area Cont Eq vti 2.1 cm squared AV Area Cont Eq pk 2.1 cm squared MV Area PHT 2.8 cm squared Mitral E to A Ratio 0.6 MV E' Velocity 38.0 cm/s Mitral E to MV E' Ratio 10.5 Mitral E to LV E' Lateral Ratio 11.5 Mitral E to LV E' Septal Ratio 9.6 TR Peak Velocity 241.4 cm/s TR Peak Gradient 23.3 mmHg TR Mean Velocity 131.6 cm/s TR Mean Gradient 9.7 mmHg TR Velocity Time Integral 52.1 cm TV Peak E Velocity 67.0 cm/s Right Atrial Pressure 3.0 mmHg Pulmonary Artery Systolic Pressu 26.3 mmHg PV Peak Velocity 51.0 cm/s RV Acceleration Time 0.1 s RV Ejection Time 0.4 s RV AcT/ET 0.3 FINDINGS Left Ventricle Left ventricle is normal in size. LV systolic function is normal with EF of 55 to 60%. No regional wall motion abnormalities are seen. Grade 1 diastolic dysfunction. Right Ventricle Right ventricle is normal in function. Right Atrium The right atrium is normal in size. Left Atrium The left atrium is normal in size. Mitral Valve Mild to moderate mitral annular calcification is seen. Trace mitral regurgitation Aortic Valve Aortic valve is thickened. No significant stenosis or regurgitation. Tricuspid Valve Mild tricuspid regurgitation. Pulmonary artery systolic pressure is normal. Pulmonic Valve Not well-visualized Pericardium Normal pericardium without effusion. Aorta Normal ascending aorta dimension. IVC CONCLUSIONS LV systolic function is normal with EF 55 to 60%. Grade 1 diastolic dysfunction. Trace mitral regurgitation. Mild to moderate mitral annular calcification. Mild tricuspid regurgitation. No comparison studies are available. Diego Zayas MD (Electronically Signed) Final Date: 07 October 2021 14:23 S
[2021-10-07 06:58] LABS: Procalcitonin 0.05 ng/mL (0-0.5)
--- NOTE | 2021-10-07 07:06 | SC_ITS ---
WS: [id number] REASON FOR EXAM: Bilateral ureteroscopy FINDINGS: Cystoscopy contrast injected into the distal right ureter. Intraluminal filling defect is seen at the level of the inferior SI joint congruent with the ureteral calculus demonstrated on the CT scan of earlier today. Retrograde right ureteral stent was then placed. The proximal end is in proper position. [facility] IMPRESSION: Distal right ureteral calculus. Placement of right ureteral stent.
--- NOTE | 2021-10-07 07:08 | PM.CONSULT ---
Providers/Reason For Consult Consulting Physician/Specialty*: Urology/Mays Reason for Consult*: Right distal ureteral stone, left distal ureteral mass Requesting Physician: Dr. Melara Attending Physician: Chi Melara MD Primary Care Provider: Francisco Monsivais MD History of Present Illness History of Present Illness Brynn Israel is a 85 year old female who I evaluated for the first time today at the request of the emergency department. 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 Denies prior history of stones. No gross hematuria. No other significant lower urinary tract symptoms or renal colicky type symptoms. Has been recently complaining of a lot of back pain but it sounds like it is more in the midline, spasm-like, and worsened with movement. Could not clearly elicit history of renal colic. CT scan showed a 7 mm stone at the RIGHT distal ureter with obstructive changes as well as a greater than 1 cm soft tissue mass with some appearance of dystrophic calcification in the LEFT distal ureter with chronic obstructive renal atrophy. I have personally reviewed the films. There is no evidence of any metastatic process such as lymphadenopathy. Creatinine is normal. Hemoglobin is 13.9, alkaline phos is mildly elevated. Urinalysis with too numerous to count white cells. 0-4 squamous epithelial cells, nitrite negative, 2+ bacteria I reviewed with the patient and her son these findings and the options. She does not have any evidence at this point of sepsis related to UTI and stone. Her urine did have white cells but her white count is normal, she has not had any fever, her vital signs are stable. Based on the lack of a septic picture I recommended cystoscopy, RIGHT: Retrograde, ureteroscopy, laser and stent as well as LEFT: Retrograde, ureteroscopy, biopsy. Informed consent was obtained after detailed explanation of the procedure, rationale for it, alternatives, benefits risks potential complications perioperative limitations and expectations. Both she and her son were in agreement to proceed. Review of Systems Const: Denies: fever(s) or chills Eyes: Denies: change in vision or eye redness ENMT: Denies: hoarseness Card: Reports: chest pain; Denies: palpitations, edema or orthopnea Resp: Denies: dyspnea, productive cough or non-productive cough GI: Reports: constipation; Denies: abdominal pain or GI cramping : Denies: flank pain, difficulty voiding or hematuria Musc: Reports: back pain (Midline, low back, worse with movement) Skin/Breast: Denies: rash or jaundice Neuro: Denies: confusion, behavioral changes or Slurred speech present Psych: Denies: anxiety or depression Endo: Denies: polydipsia or flushing Santos/Lymph: Denies: easy bruising or easy bleeding All/Imm: Denies: urticaria or acute wheezing Medications/Allergies Home Medications Medication Instructions Recorded Confirmed Last Taken Type levothyroxine 88 [place] [address]/07/21 10/07/21 10/06/21 08:00 History lisinopril 2.5 mg tablet 2[place] [address]10/07/21 10/07/21 10/06/21 09:00 History sertraline 25 mg [place] [address]/07/21 10/07/21 10/06/21 09:00 History tramadol 50 mg tablet 50 - 100 mg PO TID PRN Moderate 10/07/21 10/07/21 10/06/21 18:00 History Pain (Scale Score 5-6) Allergies Allergy/AdvReac Type Severity Reaction Status Date / Time No Known Allergies Allergy Verified 10/06/21 22:45 PFSH Acute PFSH: Medical History Anxiety and depression Hypertension Hypothyroidism Surgical History History of cholecystectomy History of hysterectomy Family History Son Diabetes Social History Smoking and tobacco status: never smoked Alcohol intake: never Substance/Drug Use: never Vitals/I&O/Wt Last Vital Signs Temp 98.2 F 10/07/21 06:25 Pulse 70 10/07/21 06:25 Resp 18 10/07/21 06:25 BP 167/73 10/07/21 06:25 Pulse Ox 93 10/07/21 06:25 O2 Del Method 10/07/21 06:28 10/06/21 10/07/21 10/07/21 22:59 06:59 14:59 Intake Total 150 / 150 Balance 150 / 150 Weight last 48 hrs Weight 122 lb Physical Exam Const: COMMON NORMALS: no acute distress, alert and well nourished GENERAL APPEARANCE: well kempt and well developed ORIENTATION/CONSCIOUSNESS: not confused HENMT: COMMON NORMALS: normocephalic and atraumatic HEAD & SCALP: normocephalic and atraumatic Eye: COMMON NORMALS: conjunctivae normal and no scleral icterus CONJUNCTIVA: Yes conjunctivae normal Neck/C-Spine: COMMON NORMALS: full ROM GENERAL: Yes normal visual inspection Resp: COMMON NORMALS: normal respiratory effort EFFORT & INSPECTION: No labored and No Actively coughing GI: COMMON NORMALS: Soft to palpation, non-tender and no masses PALPATION: Yes Soft to palpation : BLADDER/KIDNEY EXAM: No catheter in place, Yes bladder normal to palpation and Yes CVA tenderness (Some left-sided CVA tenderness but it may be paraspinous muscles.) on the left BIMANUAL EXAM - VAGINA & UTERUS: Yes bladder normal to palpation Back/Pelvis: GENERAL BACK: Yes CVA tenderness (Some left-sided CVA tenderness but it may be paraspinous muscles.) Extremity: COMMON NORMALS: no clubbing, cyanosis or edema Neuro: COMMON NORMALS: no focal motor deficits SENSORIUM/ORIENTATION: Yes alert Psych: COMMON NORMALS: mental status grossly normal APPEARANCE: Yes grossly normal and Yes well kempt ATTITUDE: Yes calm and Yes engaged Skin: COMMON NORMALS: no rashes or lesions noted and no jaundice GENERAL SKIN EXAM: no rashes or lesions noted Data : 10/06/21 23:35 10/06/21 23:35 A&P Assessment and plan (1) Right ureteral stone: Status: Acute (2) Mass of ureter: Status: Acute (3) Urinary tract infection: Status: Acute Plan 1. To the operating room for: Cystoscopy, bilateral retrogrades, right: Ureteroscopy, laser, stent. LEFT: Ureteroscopy and biopsy. We will plan on doing this afternoon. Consult Attestations Medical Necessity Statement: See attending. Concern for potential obstructive pyelonephritis. Also bilateral ureteral obstruction requires intervention Coding Level of Care Code Acute [place] Guide for [facility] Diagnoses Right ureteral stone N20.1 Mass of ureter N28.89 Urinary tract infection N39.0
[2021-10-07] MEDS: sodium chloride 0.9% 1,000 ML 100 ML IV ×2 (08:00→17:25)
--- NOTE | 2021-10-07 12:05 | PM.MISC ---
Miscellaneous Note Note: Patient is awake and alert No active complaint Patient is awaiting for cystoscopy today N.p.o. Full code She is euvolemic Abdomen soft Mild tenderness left to her umbilicus S1, S2 Abdomen has no rigidity guarding or peritonitis Awake and alert Nonfocal neuro exam Saturating well on room air Assessment and plan Plan for cystoscopy and ureteroscopy, biopsy Continue antibiotics Continue IV fluids, started diet after the procedure Full code DVT prophylaxis on hold continue ceftriaxone
--- NOTE | 2021-10-07 13:04 | ANES.PREANE2 ---
Pre-Anesthetic Assessment Height/Weight: Height 1.55 m Weight 55.338 kg Temp Pulse Resp BP Pulse Ox O2 Del Method 98.8 F 62 18 192/76 95 10/07/21 12:37 10/07/21 12:37 10/07/21 12:37 10/07/21 12:37 10/07/21 12:37 10/07/21 12:37 Operation Date: 10/07/21 13:00 Proposed Procedures p Cystoscopy(Not Applicable) - Chung Mays MD s Laser Lithotripsy(Right) - Chung Mays MD s Retrograde Pyelogram(Bilateral) - Chung Mays MD s Ureteroscopy with biopsy(Bilateral) - Chung Mays MD s Ureteral Stent Placement(Bilateral) - Chung Mays MD Familial anesthetic complications: None Was Beta Gavino taken within 24 hours: N/A Was Clonidine taken within 24 hours: N/A Last intake: > 8 hrs Social No alcohol and No tobacco Exam alert, oriented x 3, clear to auscultation bilaterally and regular rate & rhythm Airway Mallampati: Class II Dentition: false CV/HEM Hypertension Metabolic Thyroid Disease Anesthetic Plan ASA status: 3 Anesthesia: General Risk of > 500 ml blood loss (7ml/kg in children): No Medications/Allergies Home Medications Medication Instructions Recorded Confirmed Last Taken Type levothyroxine 88 [place]cg [place] [address]/07/21 10/07/21 10/06/21 08:00 History lisinopril 2.5 mg tablet 2[place] [address]/07/21 10/07/21 10/06/21 09:00 History sertraline 25 [place] [address]/07/21 10/07/21 10/06/21 09:00 History tramadol 50 mg tablet 50 - 100 mg PO TID PRN Moderate 10/07/21 10/07/21 10/06/21 18:00 History Pain (Scale Score 5-6) Allergies Allergy/AdvReac Type Severity Reaction Status Date / Time No Known Allergies Allergy Verified 10/06/21 22:45 Current Medications Generic Name Dose Route Start Last Admin Trade Name Freq PRN Reason Stop Dose Admin Sodium Chloride 1,000 mls @ 100 mls/hr 10/07/21 06:37 10/07/21 08:00 Sodium Chloride 0.9% IV 100 mls/hr .Q10H TIFFANIE Administration PFSH Anesthesia Medical History Anxiety and depression Hypertension Hypothyroidism Surgical History History of cholecystectomy History of hysterectomy Family History Son Diabetes Social History Smoking and tobacco status: never smoked Alcohol intake: never Substance/Drug Use: never Data Anesthesia : 10/06/21 23:35 10/06/21 23:35 Short CBC 10/06/21 Range/Units 23:35 WBC 8.0 (4.0-10.0) 10^3/uL Hgb 13.9 (11.5-15.3) g/dL Hct 41.8 (37.0-47.0) % MCV 89.9 (81-99) fl Plt Count 265 (130-400) 10^3/cmm Neut % (Auto) 72.9 % Neut # (Auto) 5.80 (1.8-7.7) 10^3/uL BMP 10/06/21 23:35 Sodium 130 L Potassium 4.0 Chloride 93 L Carbon Dioxide 28 BUN 23 Creatinine 0.8 Glucose 104 Calcium 10.3 Cardiac Enzymes 10/06/21 10/06/21 10/07/21 Range/Units 23:35 23:35 01:25 Troponin T Baseline 7 (0-10) ng/L Troponin T 120 Minute 6.47 (0-10) ng/L Delta Troponin T -0.53 L (0-10) ABS# Troponin T Hi Sens 6Hr (0-10) ng/L Troponin T Hi Sens 6Hr Delta (0-12) ng/L NT-Pro-B Natriuret Pep 191 (0-450) pg/mL 10/07/21 Range/Units 05:30 Troponin T Baseline (0-10) ng/L Troponin T 120 Minute (0-10) ng/L Delta Troponin T (0-10) ABS# Troponin T Hi Sens 6Hr 7.91 (0-10) ng/L Troponin T Hi Sens 6Hr Delta 0.91 (0-12) ng/L NT-Pro-B Natriuret Pep (0-450) pg/mL Liver Function 10/06/21 Range/Units 23:35 Total Bilirubin 0.2 (0.15-1.2) mg/dL AST 21 (0-32) U/L ALT 23 (0-33) U/L Alkaline Phosphatase 129 H (35-105) IU/L Albumin 3.6 (3.5-5.2) g/dL Urine 10/07/21 Range/Units 03:15 Urine Color Yellow (Yellow) Urine Appearance Cloudy (CLEAR) Urine pH 6 (5-7) Ur Specific Sherrill 1.005 (1.005-1.030) Urine Protein Trace (Negative) Urine Glucose (UA) Norm (Normal) Urine Ketones Negative (Negative) Urine Nitrate Negative (Negative) Urine Bilirubin Neg (Negative) Ur Leukocyte Esterase 2+ H (Negative) Urine RBC 5-10 H (0-2) /hpf Urine WBC Too numerous to cnt H (0-5) /hpf COVID Results 10/06/21 23:26 SARS-CoV-2 Ag (Rapid) Negative Microbiology 10/07/21 07:15 Blood Culture - Preliminary Blood SPECIMEN COLLECTED 10/07/21 07:11 Blood Culture - Preliminary Blood SPECIMEN COLLECTED Cardiac Studies: No Data to Display
--- NOTE | 2021-10-07 13:14 | PM.OP ---
Operative Report Date of procedure: October 07, 2021 Pre-op diagnosis: 1. Right distal ureteral stone with obstruction 2. Left ureteral mass suspicious for TCCA Post-op diagnosis: 1. Right distal ureteral stone with obstruction 2. Left ureteral mass suspicious for TCCA Procedure done: 1. Cystoscopy, RIGHT: Retrograde, ureteroscopy, laser, stent 2. LEFT: Retrograde, ureteroscopy, biopsy of ureteral mass 3. Urologic fluoroscopy with intraoperative interpretation exclusive of radiology. Implants: Right ureteral stent Specimens removed/disposition: 1. Right stone fragment 2. Ureteral mass biopsy (LEFT) Pathology: 1. Right stone fragments 2. Ureteral mass biopsy (LEFT) Surgeon: Tabatha Anesthesia: General Estimated blood loss: Minimal Urine output: Not measured Complications: None Findings: 1. Right ureteral stone easily accessed and fragmented with laser fiber, stent left indwelling 2. 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 3. Condition: Stable 4. Disposition: PACU Brief History: Mrs. Israel is a very pleasant 85-year-old white female admitted to the hospital this morning with complaint back pain and chest pain. CT scan done during the evaluation demonstrated an obstructing right distal ureteral stone measuring about 7 mm and evidence of a left distal ureteral mass suspicious for TCCA with chronic obstructive changes and atrophy of the left kidney. Some of the concerning features about her history was that her urine looked infected although she had no evidence of a septic picture. White count was normal, no fever, no hypotension etc. It was recommended that she undergo endoscopic treatment of the stone with stenting assuming persistence of the nonseptic clinical picture and at the same setting undergo left ureteroscopy and biopsy of the soft tissue mass in the left distal ureter. Procedure: After urgent preoperative evaluation examination and obtaining of informed consent she was taken to the operating suite on 10/07/2021 where general anesthesia was administered without difficulty after appropriate timeout was performed, SCDs confirmed to be functioning, preoperative antibiotics administered, beta-letty protocol confirmed. Prepped and draped in usual sterile fashion in dorsolithotomy position paying careful attention to avoiding pressure points. 21 Kittitian cystoscope with 30 degree lens was introduced into the urethral meatus and advanced into the bladder under videoscopy. The bladder was systematically examined. No lesions were identified. No stones were seen. An 8 Kittitian cone-tip catheter was intubated to the RIGHT ureteral orifice for a RIGHT retrograde ureteropyelogram demonstrating normal distal ureter with no filling defects until the stone was seen in its expected position. The ureter proximal to the stone was dilated. A flexible tip guidewire was then advanced up the right ureter bypassing the stone and curling in the area of the renal pelvis. The distal ureter was then dilated with a 15 Kittitian 4 cm balloon with no waist. The balloon was removed and bladder drained wire secured to the drapes as a safety wire. A 7 Kittitian offset semirigid ureteroscope was then advanced up the right ureter next to the guidewire where the stone was encountered in the expected position. It was fragmented with a 365 ?m thulium superpulse laser fiber into fragments small enough to be easily removed by flushing and basketing. Final inspection revealed no evidence of residual fragments. Cystoscope was then backloaded over the guidewire and a 6 Kittitian by 24 cm double-pigtail stent was advanced over the guidewire through the cystoscope into position as confirmed via fluoroscopy and cystoscopy but it was felt that the stent surprisingly was too short and it was exchanged for a 6 Kittitian by 28 cm double-pigtail stent after contrast injection to clearly identify the renal pelvis stent was confirmed to be draining well.. Attention was then directed to the left ureter. An 8 Kittitian cone-tip catheter was intubated into the LEFT ureteral orifice for a LEFT retrograde ureteropyelogram which demonstrated normal very distal ureter and a large filling defect in the distal ureter in the expected position as per CT scan approximately 3 inches above the left ureteral orifice. Contrast was able to be manipulated proximal to the lesion with the appearance consistent with soft tissue tumor. The ureter proximal to the mass was distinctly dilated. A flexible tip guidewire was easily passed up the left ureter bypassing the lesion. Ureteral orifice was small enough to require dilation. A 15 Kittitian 4 cm balloon was passed over the guidewire into the distal ureter well below the filling defect and the balloon was dilated to 4 mc of pressure with no waist. The wire was secured to the drapes as a safety wire and the offset semirigid ureteroscope was advanced up the left ureter. The soft tissue mass was encountered in its expected position. There was a dystrophic calcification on the distal aspect. The mass appeared to be mostly free circumferentially distally with its attachments more proximally. This was consistent with a retrograde as well. There was a mixed of papillary and smooth type appearance not typical for TCCA but suspicious for a fibroepithelial polyp. Small ureteroscopic biopsy forceps were then passed through the scope and multiple areas were sampled obtaining approximately 6 individual pieces. The samples were small but appear to be adequate for pathologic evaluation. They were placed on a moistened Telfa pad which was folded in order to secure them. Specimen was sent for pathologic evaluation. Final inspection showed no severe bleeding. The bladder was drained and the procedure was completed. She tolerated the procedure well without complications and was awakened in the operating room and returned to PACU in stable condition. PLANS: 1. Continue IV antibiotics 2. Maintain right ureteral stent for approximately 1 week. Expect p.o. to take it out in the office on follow-up as an outpatient. 3. Final determination of treatment of the left ureteral mass pending biopsy results.
[2021-10-07] MEDS: iohexol 300 mg/mL 50 mL Btl (OR ONLY) XX (13:44)
--- NOTE | 2021-10-07 15:04 | PC.SLP ---
Pt not available in her room, still not back from procedure. INTELLIGENCE OFFICER will follow-up with the pt at another time.
[2021-10-07] MEDS: docusate sodium 100 mg Capsule PO (16:54)
[2021-10-07] MEDS: acetaminophen 325 mg Tablet 650 MG PO (16:54)
--- NOTE | 2021-10-07 17:00 | ANE.PACU2 ---
Inpatient post-anesthesia follow up: Airway intact: Yes Vital signs: Temperature 97.9 F Pulse Rate 73 Respiratory Rate 16 Blood Pressure 168/77 Pulse Oximetry 95 Oxygen Delivery Me thod [ Room Air Current Rate & Del david] Oxygen Delivery Me thod Room Air Oxygen Flow Rate Fraction of Inspir ed Oxygen Hydration adequate: Yes Nausea and vomiting: No Pain level: 1 Mental status: Baseline
[2021-10-07 17:11] LABS: Glucose Point of Care 129 mg/dL (70-110)
--- NOTE | 2021-10-07 17:26 | PC.SLP ---
The patient indicates that she is not hungry at the current time and does not want to eat. COMPUTER AIDED DESIGN DRAFTER will attempt to follow-up the patient tomorrow.
[2021-10-07] MEDS: morphine 4 mg/mL SDV 1 mL 1 MG IVP ×2 (17:31→21:43)
[2021-10-08] VITALS (12 sets, daily range): BP systolic 160–176; BP diastolic 60–92; PULSE 59–80; RESP 12–18; TEMP 36.4–36.9; O2SAT 93–100
[2021-10-08] MEDS: acetaminophen 325 mg Tablet 650 MG PO (00:02)
[2021-10-08] MEDS: sodium chloride 0.9% 1,000 ML 100 ML IV ×2 (01:36→14:07)
[2021-10-08] MEDS: HYDROmorphone 1 mg/mL INJ 1 mL IVP ×2 (01:36→05:02)
[2021-10-08 05:13] LABS: Basophils % 0.2 %; Eosinophils # 0.1 10^3/uL (0.0-0.8); Eosinophils % 0.8 %; Hematocrit 42.3 % (37.0-47.0); Hemoglobin 13.8 g/dL (11.5-15.3); Lymphocytes # 1.7 10^3/uL (0.8-4.8); Lymphocytes % 18.3 %; Mean Corpuscular HGB Conc 32.6 g/dL (30.0-36.0); Mean Corpuscular Hemoglobin 29.4 pg (28.0-34.0); Mean Corpuscular Volume 90.2 fl (81-99); Mean Platelet Volume 9.1 fL (7.4-10.4); Monocytes # 0.9 10^3/uL (0.2-0.9); Monocytes % 9.6 %; Neutrophils # 6.37 10^3/uL (1.8-7.7); Neutrophils % 70.8 %; Nucleated Red Blood Cells % 0 %; Platelet Count 251 10^3/cmm (130-400); Red Blood Count 4.69 10^6/uL (4.1-5.3)
[2021-10-08 05:38] LABS: Alanine Aminotransferase 27 U/L (0-33); Albumin Level 3.5 g/dL (3.5-5.2); Alkaline Phosphatase 126 IU/L (35-105); Anion Gap 14.9 (5-19); Aspartate Amino Transferase 26 U/L (0-32); Blood Urea Nitrogen 19 mg/dL (8-23); C Reactive Protein 10.1 mg/L (0.0-4.9); Calcium 8.7 mg/dL (8.5-10.5); Carbon Dioxide 24 mmol/L (22-29); Chloride 100 mmol/L (98-107); Glucose 111 mg/dL (65-115); Magnesium 2.1 mg/dL (1.7-2.3); Osmolality Calculated 283 mOsm/kg (285-295); Phosphorus 2.3 mg/dL (2.5-4.5); Potassium 3.9 mmol/L (3.5-5.1); Sodium 135 mmol/L (136-145); Total Bilirubin 0.2 mg/dL (0.15-1.2); Total Protein 7.5 g/dL (6.6-8.7)
[2021-10-08] MEDS: cefTRIAXone 1,000 MG in sodium chloride 0.9% (plus) 50 ML 100 MG IV (06:05)
[2021-10-08] MEDS: aspirin 81 mg EC Tablet PO (08:06)
[2021-10-08] MEDS: docusate sodium 100 mg Capsule PO (08:06)
[2021-10-08] MEDS: morphine 4 mg/mL SDV 1 mL 1 MG IVP (14:08)
--- NOTE | 2021-10-08 14:15 | P.PN_ITS ---
Subjective Subjective: Patient is stating that she is feeling that something gets stuck in her throat, she has been prescribed some antibiotics for strep throat Will do barium swallow She might need EGD for further investigation outpatient Status post ureteral biopsy Vitals/I&O/Wt Last Vital Signs Temp 98.4 F 10/08/21 11:44 Pulse 62 10/08/21 11:44 Resp 18 10/08/21 14:08 BP 171/72 10/08/21 11:44 Pulse Ox 95 10/08/21 11:44 O2 Del Method 10/08/21 11:44 10/07/21 10/08/21 10/08/21 22:59 06:59 14:59 Intake Total 1181.667 / 1231.667 868.333 / 2100.000 1600 / 1600 Output Total 0 / 0 850 / 850 Balance 1181.667 / 1231.667 868.333 / 2100.000 750 / 750 Weight last 48 hrs Weight 55.338 kg Physical Exam Narrative: Patient is euvolemic Awake and alert Complaining of back pain Ordaz catheter showing pink-colored urine Abdomen soft No active chest pain Saturating well on room air Awake and alert Nonfocal neuro exam Urinary Catheter Management: Ordaz: Cath Placed During This Visit: yes Reason for Continuing Indwelling Catheter: Acute Urinary Retention or Obstruction Urinary Catheter Date of Insertion: 10/08/21 Urinary Catheter Time of Insertion: 05:30 Data : 10/08/21 05:01 10/08/21 05:01 Micro: Microbiology 10/07/21 03:15 Urine Culture - Preliminary Urine,Clean Catch 10/07/21 07:15 Blood Culture - Preliminary Blood NEGATIVE TO DATE 10/07/21 07:11 Blood Culture - Preliminary Blood NEGATIVE TO DATE A&P Assessment and plan (1) Urinary tract infection: Status: Acute (2) Right ureteral stone: Status: Acute (3) Mass of ureter: Status: Acute (4) Hyponatremia: Status: Acute Plan Oropharyngeal dysphagia Will request modified barium swallow Outpatient EGD? Ureteral mass status post biopsy, postop day 1 status post cystoscopy right retrograde ureteroscopy, laser, stent left ureteral grade ureteroscopy biopsy ureteral mass Continue IV fluids Urine is pink-colored Continue ceftriaxone Opioids p.o. morphine along bowel regimen PT evaluation to get her out of bed Full code Plan to discharge her tomorrow or Sunday Full code Modified diet, dysphagia ground Attestations Medical Necessity Statement*: Continue hospitalization Time Spent in Patient Care: 30 Coding Level of Care Code Acute Production Control Analyst for Chg Fwd Diagnoses Urinary tract infection N39.0 Right ureteral stone N20.1 Mass of ureter N28.89 Hyponatremia E87.1
[2021-10-09] VITALS (7 sets, daily range): BP systolic 168–178; BP diastolic 62–90; PULSE 58–98; RESP 16–18; TEMP 36.6–36.7; O2SAT 94–97
[2021-10-09] MEDS: sodium chloride 0.9% 1,000 ML 100 ML IV (01:16)
[2021-10-09 04:48] LABS: Basophils % 0.3 %; Eosinophils # 0.2 10^3/uL (0.0-0.8); Eosinophils % 3.3 %; Hematocrit 36.9 % (37.0-47.0); Lymphocytes # 1.6 10^3/uL (0.8-4.8); Mean Corpuscular HGB Conc 32.5 g/dL (30.0-36.0); Mean Corpuscular Hemoglobin 29.4 pg (28.0-34.0); Mean Corpuscular Volume 90.4 fl (81-99); Mean Platelet Volume 9.7 fL (7.4-10.4); Monocytes # 0.5 10^3/uL (0.2-0.9); Monocytes % 8.8 %; Neutrophils # 3.74 10^3/uL (1.8-7.7); Neutrophils % 61.1 %; Nucleated Red Blood Cells % 0 %; Platelet Count 224 10^3/cmm (130-400); Red Blood Count 4.08 10^6/uL (4.1-5.3); Red Cell Distribution Width 12.1 % (12.1-15.1); White Blood Count 6.1 10^3/uL (4.0-10.0)
[2021-10-09] MEDS: acetaminophen 325 mg Tablet 650 MG PO (05:14)
[2021-10-09 05:27] LABS: Alanine Aminotransferase 18 U/L (0-33); Albumin Level 3.2 g/dL (3.5-5.2); Alkaline Phosphatase 108 IU/L (35-105); Anion Gap 13.6 (5-19); Aspartate Amino Transferase 21 U/L (0-32); Blood Urea Nitrogen 13 mg/dL (8-23); C Reactive Protein 19.1 mg/L (0.0-4.9); Calcium 8.5 mg/dL (8.5-10.5); Carbon Dioxide 23 mmol/L (22-29); Chloride 105 mmol/L (98-107); Globulin 3.4 g/dL (1.3-4.6); Glucose 89 mg/dL (65-115); Osmolality Calculated 286 mOsm/kg (285-295); Phosphorus 1.9 mg/dL (2.5-4.5); Potassium 3.6 mmol/L (3.5-5.1); Sodium 138 mmol/L (136-145); Total Bilirubin 0.2 mg/dL (0.15-1.2); Total Protein 6.6 g/dL (6.6-8.7)
[2021-10-09] MEDS: cefTRIAXone 1,000 MG in sodium chloride 0.9% (plus) 50 ML 100 MG IV (05:58)
[2021-10-09] MEDS: docusate sodium 100 mg Capsule PO ×2 (08:33→17:21)
[2021-10-09] MEDS: polyethylene glycol 3350 Pkt 17 gm PO (08:33)
[2021-10-09] MEDS: morphine IR 15 mg Tablet PO ×3 (10:00→22:10)
[2021-10-09] MEDS: gabapentin 300 mg Capsule PO ×2 (10:55→17:22)
--- NOTE | 2021-10-09 12:09 | PM.PN ---
Subjective Subjective: This morning patient was complaining of back pain, I did tell her that she has multiple compression fractures I will add gabapentin, give her calcitonin Continue opioids and IV Dilaudid for as needed basis Ordaz catheter showing pink-colored urine Vitals/I&O/Wt Last Vital Signs Temp 97.9 F 10/09/21 07:52 Pulse 73 10/09/21 07:52 Resp 16 10/09/21 07:52 BP 168/77 10/09/21 07:52 Pulse Ox 95 10/09/21 07:52 O2 Del Method 10/09/21 07:52 10/08/21 10/09/21 10/09/21 22:59 06:59 14:59 Intake Total 360 / 1960 1050 / 3010 360 / 360 Output Total 1000 / 1850 1550 / 3400 1400 / 1400 Balance -640 / 110 -500 / -390 -1040 / -1040 Physical Exam Narrative: Patient is laying supine Complaining of back pain No signs of cauda equina Ordaz catheter in place pink-colored urine Abdomen soft S1, S2 Satting well on room air Family at the bedside Looks euvolemic Urinary Catheter Management: Ordaz: Cath Placed During This Visit: yes Reason for Continuing Indwelling Catheter: Acute Urinary Retention or Obstruction Urinary Catheter Date of Insertion: 10/08/21 Urinary Catheter Time of Insertion: 05:30 Data : 10/09/21 04:24 10/09/21 04:24 Micro: Microbiology 10/07/21 03:15 Urine Culture - Final Urine,Clean Catch 10/07/21 07:15 Blood Culture - Preliminary Blood NEGATIVE TO DATE 10/07/21 07:11 Blood Culture - Preliminary Blood NEGATIVE TO DATE A&P Assessment and plan (1) Chest pain: Status: Acute (2) Urinary tract infection: Status: Acute (3) Right ureteral stone: Status: Acute (4) Mass of ureter: Status: Acute (5) Hyponatremia: Status: Acute (6) Dysphagia: Status: Acute Plan Dysphagia to solids and liquids Patient is also endorsing losing weight Modified barium swallow tomorrow Might need EGD for further investigation Right stone has been extracted Right ureteral mass has been biopsied Outpatient Dr. Mays follow-up I am planning to remove her Ordaz catheter tomorrow It is still swelling pink-colored urine No signs of UTI however she has been kept on ceftriaxone empirically Compression fractures, calcitonin, gabapentin, opioids Bowel regimen Full code Modified diet N.p.o. after midnight Depending on her modified barium swallow we will consult general surgery Attestations Medical Necessity Statement*: Continue medical management Time Spent in Patient Care: 30 Coding Level of Care Code Acute Computer Operations Technician for Chg Fwd Diagnoses Chest pain R07.9 Urinary tract infection N39.0 Right ureteral stone N20.1 Mass of ureter N28.89 Hyponatremia E87.1 Dysphagia R13.10
[2021-10-09] MEDS: calcitonin,salmon 200 unit/mL SDV 2mL 100 UNIT SUBCUT (15:02)
[2021-10-10] VITALS (9 sets, daily range): BP systolic 134–165; BP diastolic 61–75; PULSE 61–86; RESP 14–16; TEMP 36.4–36.8; O2SAT 93–97
[2021-10-10 05:03] LABS: Basophils % 0.6 %; Eosinophils # 0.3 10^3/uL (0.0-0.8); Eosinophils % 4.4 %; Lymphocytes # 2.1 10^3/uL (0.8-4.8); Mean Corpuscular HGB Conc 30.8 g/dL (30.0-36.0); Mean Corpuscular Volume 94.2 fl (81-99); Mean Platelet Volume 9.6 fL (7.4-10.4); Monocytes # 0.6 10^3/uL (0.2-0.9); Monocytes % 8.4 %; Neutrophils % 55.3 %; Nucleated Red Blood Cells % 0 %; Platelet Count 234 10^3/cmm (130-400); Red Blood Count 4.14 10^6/uL (4.1-5.3); Red Cell Distribution Width 12.4 % (12.1-15.1); White Blood Count 6.9 10^3/uL (4.0-10.0)
[2021-10-10 05:23] LABS: Alanine Aminotransferase 17 U/L (0-33); Alkaline Phosphatase 109 IU/L (35-105); Anion Gap 13.5 (5-19); Aspartate Amino Transferase 19 U/L (0-32); Blood Urea Nitrogen 16 mg/dL (8-23); Calcium 8.2 mg/dL (8.5-10.5); Carbon Dioxide 21 mmol/L (22-29); Chloride 103 mmol/L (98-107); Globulin 3.4 g/dL (1.3-4.6); Glucose 123 mg/dL (65-115); Osmolality Calculated 281 mOsm/kg (285-295); Potassium 3.5 mmol/L (3.5-5.1); Sodium 134 mmol/L (136-145); Total Bilirubin 0.2 mg/dL (0.15-1.2); Total Protein 6.4 g/dL (6.6-8.7)
[2021-10-10] MEDS: cefTRIAXone 1,000 MG in sodium chloride 0.9% (plus) 50 ML 100 MG IV (05:41)
[2021-10-10] MEDS: docusate sodium 100 mg Capsule PO ×2 (09:16→18:16)
[2021-10-10] MEDS: polyethylene glycol 3350 Pkt 17 gm PO (09:16)
[2021-10-10] MEDS: gabapentin 300 mg Capsule PO ×2 (09:16→18:17)
[2021-10-10] MEDS: aspirin 81 mg EC Tablet PO (09:27)
[2021-10-10] MEDS: calcitonin,salmon 200 unit/mL SDV 2mL 100 UNIT SUBCUT (09:28)
--- NOTE | 2021-10-10 11:04 | PM.PN ---
Subjective Subjective: Postoperative day #3 status post laser lithotripsy of right ureteral calculus and ureteroscopy biopsy of left ureteral mass. Pathology report is pending still. Overall from urologic perspective she is doing well. Glad to have the Ordaz catheter out. Still having some mild hematuria. Having some intermittent back pain that sounds more musculoskeletal. Labs look good. Undergoing work-up regarding difficulty swallowing. I reviewed with her the intraoperative findings again. Our next step will be to plan treatment of the left ureteral mass based on pathology report. We will plan on removing the stent sometime either later this week or early next week. All the above explained to the patient in detail. Medications: Reviewed: Yes Vitals/I&O/Wt Last Vital Signs Temp 97.9 F 10/10/21 08:00 Pulse 65 10/10/21 08:00 Resp 16 10/10/21 08:00 BP 158/75 10/10/21 08:00 Pulse Ox 97 10/10/21 08:00 O2 Del Method 10/10/21 08:00 10/09/21 10/10/21 10/10/21 22:59 06:59 14:59 Intake Total 120 / 720 50 / 770 Output Total 1 / 1401 1200 / 2601 200 / 200 Balance 119 / -681 -1150 / -1831 -200 / -200 Physical Exam Narrative: Alert oriented no acute distress Unlabored respiration. No audible wheezing Abdomen is soft, nontender No obvious neurodeficits Pleasant cooperative throughout exam Urinary Catheter Management: Ordaz: Cath Placed During This Visit: yes, but has since been removed by the nurse Reason for Continuing Indwelling Catheter: Decision to DC Catheter Urinary Catheter Date of Insertion: 10/08/21 Urinary Catheter Time of Insertion: 05:30 Date Urinary Catheter Removed: 10/10/21 Time Urinary Catheter Discontinued: 09:36 Data : 10/10/21 04:20 10/10/21 04:20 Micro: Microbiology 10/07/21 03:15 Urine Culture - Final Urine,Clean Catch A&P Assessment and plan (1) Right ureteral stone: Stent in place We will plan on taking it out soon on outpatient basis Status: Acute (2) Mass of ureter: Biopsy still pending Status: Acute Plan 1. Can be discharged from urologic perspective whenever ready from medicine perspective 2. We will follow-up early next week for cystoscopy and stent removal and planning regarding the left ureteral mass. Attestations Medical Necessity Statement*: See attending Coding Level of Care Code Acute Final Application Reviewer for g Fwd Diagnoses Right ureteral stone N20.1 Mass of ureter N28.89
--- NOTE | 2021-10-10 13:35 | MR_ITS ---
WS: [id number] MRI LUMBAR SPINE NONCONTRAST TECHNIQUE: Sagittal T1, T2 and STIR imaging. Axial T1 and T2 imaging. CLINICAL INFORMATION: spinal cord compression COMPARISON: None. FINDINGS: Grade 2 anterolisthesis L5 on S1 with chronic spondylolysis. Mild acute compression superior endplate L4 with loss of approximately 20% vertebral body height. No significant retropulsion. Chronic anteri or wedging L2 with endplate Schmorl's nodes. L1-L2: Mild annular bulging. Spinal canal and foramen are patent. Mild facet arthropathy. L2-L3: Mild disc bulging with slight narrowing subarticular recess bilaterally. Mild central canal st enosis. Mild bilateral foraminal narrowing. Mild facet arthropathy. L3-L4: Mild annular bulging. Mild central canal stenosis. Narrowing subarticular recess bilaterally. Foramen are patent. Mild facet arthropathy. L4-L5: Mild annular bulging. Narrowing of the subarticular recess bilaterally. Spinal canal is patent . Mild facet arthropathy. L5-S1: Grade 2 anterolisthesis L5 on S1 with chronic spondylolysis. Moderate central canal stenosis w ith impingement on the traversing S1 nerve roots. Moderate to severe bilateral foraminal narrowing. M ild facet arthropathy. Bilateral peripelvic renal cysts. Bilateral hydronephrosis. LEFT ureterectasis. Visualized pelvic bony structures: Normal. Paravertebral soft tissues: Normal. MR/MR lumbar spine wo con* [id number] IMPRESSION: 1. Grade 2 anterolisthesis L5 on S1 with chronic spondylolysis. Moderate centr al canal stenosis at this level with impingement on the traversing S1 nerve vikash ts. Moderate to severe bilateral bony foraminal narrowing. 2. Mild central canal stenosis L2-L3 and L3-L4 with narrowing of the subarticu lar recess bilaterally. 3. Acute appearing compression superior endplate L4 with mild loss vertebral b sandeep height measuring approximately 20%. This is stable since the recent CT 10/07. Mild associated edema. No significant retropulsion. 4. Chronic anterior wedging at L2 with endplate Schmorl's node.
--- NOTE | 2021-10-10 13:47 | PM.PN ---
Subjective Subjective: Patient is still complaining of back pain she has not tried to get out of bed Pain is well managed with Gabapentin and Opioids I would keep Ordaz in as she is reluctant to get out of bed on her own because of back pain Pathology results are still pending IHC stains have been sent by the pathologist Modified barium swallow showed esophageal spasm no stricture or mass Dr. Self recommended EGD with Botox outpatient Vitals/I&O/Wt Last Vital Signs Temp 98.0 F 10/10/21 12:00 Pulse 62 10/10/21 12:00 Resp 16 10/10/21 12:00 BP 163/71 10/10/21 12:00 Pulse Ox 96 10/10/21 12:00 O2 Del Method 10/10/21 12:00 10/09/21 10/10/21 10/10/21 22:59 06:59 14:59 Intake Total 120 / 720 50 / 770 Output Total 1 / 1401 1200 / 2601 200 / 200 Balance 119 / -681 -1150 / -1831 -200 / -200 Physical Exam Narrative: Patient is euvolemic Awake and alert Family at the bedside Patient is complaining of back pain upon ambulation Ordaz catheter in place S1, S2 On room air Nonfocal neuro exam Urinary Catheter Management: Ordaz: Cath Placed During This Visit: yes, but has since been removed by the nurse Reason for Continuing Indwelling Catheter: Decision to DC Catheter Urinary Catheter Date of Insertion: 10/08/21 Urinary Catheter Time of Insertion: 05:30 Date Urinary Catheter Removed: 10/10/21 Time Urinary Catheter Discontinued: 09:36 Data : 10/10/21 04:20 10/10/21 04:20 Micro: Microbiology 10/07/21 03:15 Urine Culture - Final Urine,Clean Catch A&P Assessment and plan (1) Urinary tract infection: Status: Acute (2) Right ureteral stone: Status: Acute (3) Mass of ureter: Status: Acute (4) Hyponatremia: Status: Acute (5) Dysphagia: Status: Acute (6) Compression fracture: Status: Acute (7) Dysphagia: Status: Acute Plan Dysphagia Modified barium swallow showed esophageal dysmotility Dr. Self recommended outpatient EGD with Botox We will start her on high-dose Protonix Currently on dysphagia diet Compression fractures Will get MRI to rule out spinal cord compression however clinically she does have intact sensations and able to move her extremities she is reluctant to get out of bed because of worsening of pain currently on calcitonin and opioids and bowel regimen She had 1 bowel movement yesterday Ureteral mass, IHC stains have been sent by the pathologist Reports are not back yet Appreciate Dr. Mays's recommendation I will keep her on ceftriaxone until the day of discharge Full code We can resume her DVT prophylaxis now Will ask PT to see her today Attestations Medical Necessity Statement*: Continue medical management Time Spent in Patient Care: 30 Coding Level of Care Code Acute Chief Client Officer for Chg Fwd Diagnoses Urinary tract infection N39.0 Right ureteral stone N20.1 Mass of ureter N28.89 Hyponatremia E87.1 Dysphagia R13.10 Compression fracture Dysphagia R13.10
--- NOTE | 2021-10-10 14:17 | FL_ITS ---
WS: [id number] Exam: FL barium swallow modifd [id number] Date/Time of Exam: 10/10/2021 10:56 AM Reason For Exam: Oropharyngeal dysphagia Fluoroscopy time: 8min 5.771998yny minutes # of spot films: 0 Modified barium swallow is performed in conjunction with the speech therapy service. The patient tolerated thin liquid, nectar consistency, pudding consistency and solid barium mixture f oodstuffs without swallowing difficulty. Poor esophageal motility noted with the to and fro spasm of the esophagus. Administration of the barium pill revealed retention the pill the lower esophagus afte r of multiple swallowing attempts with the pudding and nectar consistency barium foodstuffs. No aspi ration or penetration into the laryngeal inlet was observed during the exam. FL/FL barium swallow modifd [id number] IMPRESSION: 1. No aspiration or penetration identified. 2. Poor esophageal motility with to and fro spasm in the esophagus. 3. The patient experienced difficulty with the barium pill. The pill was retain ed in the distal esophagus after multiple swallowing attempts. A separate report of recommendations and findings will follow from the speech t herapy service.
[2021-10-10] MEDS: pantoprazole 40 mg SDV IVP (15:37)
[2021-10-10] MEDS: enoxaparin 40 mg/0.4 mL Syringe SUBCUT (15:37)
[2021-10-10] MEDS: morphine IR 15 mg Tablet PO (15:57)
--- NOTE | 2021-10-10 15:59 | PC.NURSE ---
bladder scan scan showed 200ml in bladder then I had pt go to restroom and she urinated 100ml yellow/ pink tinged urine.
[2021-10-11] VITALS (7 sets, daily range): BP systolic 140–155; BP diastolic 57–80; PULSE 58–76; RESP 12–18; TEMP 36.3–36.9; O2SAT 92–95
[2021-10-11] MEDS: pantoprazole 40 mg SDV IVP (02:18)
[2021-10-11] MEDS: morphine IR 15 mg Tablet PO (02:35)
[2021-10-11] MEDS: cefTRIAXone 1,000 MG in sodium chloride 0.9% (plus) 50 ML 100 MG IV (05:43)
[2021-10-11 07:32] LABS: Anion Gap 12.2 (5-19); Blood Urea Nitrogen 17 mg/dL (8-23); Calcium 8.2 mg/dL (8.5-10.5); Carbon Dioxide 23 mmol/L (22-29); Chloride 105 mmol/L (98-107); Glucose 90 mg/dL (65-115); Osmolality Calculated 283 mOsm/kg (285-295); Potassium 4.2 mmol/L (3.5-5.1); Sodium 136 mmol/L (136-145)
[2021-10-11] MEDS: aspirin 81 mg EC Tablet PO (08:46)
[2021-10-11] MEDS: docusate sodium 100 mg Capsule PO (08:46)
[2021-10-11] MEDS: gabapentin 300 mg Capsule PO (08:47)
[2021-10-11] MEDS: calcitonin,salmon 200 unit/mL SDV 2mL 100 UNIT SUBCUT (08:47)
[2021-10-11] MEDS: polyethylene glycol 3350 Pkt 17 gm PO (08:47)
[2021-10-11] MEDS: LORazepam 0.5 mg Tablet 0.25 MG PO (09:42)
--- NOTE | 2021-10-11 10:42 | P.DS_ITS ---
Discharge Providers Date of Admission: 10/07/21 04:51 Date of Discharge: October 11, 2021 Attending Provider at Admission: Chi Melara MD Attending Provider at Discharge: Galen Cespedes MD Primary Care Provider: Francisco Monsivais MD Diagnoses at Discharge Discharge Diagnosis (1) Urinary tract infection: Status: Acute (2) Right ureteral stone: Status: Acute (3) Mass of ureter: Status: Acute (4) Hyponatremia: Status: Acute (5) Dysphagia: Status: Acute (6) Compression fracture: Status: Acute (7) Dysphagia: Status: Acute Reason for Visit Reason for Visit: Chest tightness/Sob/Lower back pain Hospital Course Hospital Course 85-year female who presented with chief complaint of dysphagia, back pain, atypical chest pain. Troponin without significant elevation, EKG nonischemic. Dr. Mays was consulted for ureteral mass right-sided kidney stone 7 mm. Status post right distal ureteral stone fragmentation status post stent, left ureteral mass biopsy, pathology showing high-grade papillary urothelial cancer. For her dysphagia modified barium swallow showed esophageal spasm, Dr. Self recommended outpatient EGD with Botox treatment. For her back pain MRI was done which showed multiple compression fractures acute L4 fracture. Dr. Segundo is going out of town, recommended outpatient evaluation. For now I will give pain management referral because of her severe back pain, Dr. Mays's referral and Dr. Self's for EGD. Pathology results were discussed with the patient and her son. They will discuss their options with Dr. Mays and the oncologist. At baseline patient is very fatigued and lethargic suffering from recurrent compression fractures also has sciatica S1 nerve, impingement at risk of spinal cord compression. She does not want to go to any fpc. She will be going home. Unfortunately because of her [place] insurance we were not able to set up home health services. manager environmental affairs updated them and asked them to change to [place] plan. At the time of discharge she will get lidocaine patch, opioids, bowel regimen, follow-up with 4 different physicians. Physical Exam Narrative: Frail female Euvolemic Abdomen soft Tender back Satting well on room air Awake and alert Becomes anxious Nonfocal neuro exam No audible stridor or wheezing Son at the bedside Urinary Catheter Management: [place]: Cath Placed During This Visit: yes, but has since been removed by the nurse Reason for Continuing Indwelling Catheter: Decision to DC Catheter Urinary Catheter Date of Insertion: 10/08/21 Urinary Catheter Time of Insertion: 05:30 Date Urinary Catheter Removed: 10/10/21 Time Urinary Catheter Discontinued: 09:36 Discharge Data Studies Completed and Pending Completed Studies During Hospitalization Category Date Time Status CT chest abd pel w con* Stat Cat Scan 10/07/21 02:03 Completed FL barium swallow modifd [id number] Routine Exams 10/10/21 14:17 Completed XR chest 1V portable [id number] Stat Exams 10/06/21 22:34 Completed MR lumbar spine wo con* [id number] Routine MRI 10/10/21 13:35 Completed Pathology: Surgical [PTH] Routine Pth 10/07/21 14:48 Completed CV. echo complete* [id number] Routine Ultrasound 10/07/21 06:17 Completed Pending at discharge Category Date Time Status Blood Culture Routine Lab 10/07/21 07:15 Results Stone Analysis Routine Lab 10/07/21 14:10 Received Radiology Impressions Chest X-Ray 10/06/21 22:34 IMPRESSION: Low lung volumes and bronchovascular crowding. Mild bibasilar opacities may represent atelectasis. Otherwise, no acute radiographic findings in the chest findings. Chest/Abdomen/Pelvis CT 10/07/21 02:03 IMPRESSION: No acute findings. IMPRESSION: 1. Severe left hydroureteronephrosis secondary to an ovoid soft tissue filling defect in the distal left ureter, raising concern for neoplasm, potentially a primary urothelial carcinoma. Recommend urology consultation. 2. Moderate right hydronephrosis secondary to a 7 mm stone in the distal right ureter. COMMENTS: Consistent with the [employer]'s Incidental Findings Committee white paper (J Am Sheila Radiol 2018): Any incidental renal lesion less than 1 cm or classified as too small to characterize, or any incidental cystic renal lesion characterized as simple-appearing, is likely benign. No follow-up imaging is recommended for these lesions per consensus recommendations based on imaging criteria. C-Arm Fluoroscopy 10/07/21 07:06 IMPRESSION: Distal right ureteral calculus. Placement of right ureteral stent. Lumbar Spine MRI 10/10/21 13:35 IMPRESSION: 1. Grade 2 anterolisthesis L5 on S1 with chronic spondylolysis. Moderate central canal stenosis at this level with impingement on the traversing S1 nerve roots. Moderate to severe bilateral bony foraminal narrowing. 2. Mild central canal stenosis L2-L3 and L3-L4 with narrowing of the subarticular recess bilaterally. 3. Acute appearing compression superior endplate L4 with mild loss vertebral body height measuring approximately 20%. This is stable since the recent CT 10/07/21. Mild associated edema. No significant retropulsion. 4. Chronic anterior wedging at L2 with endplate Schmorl's node. Modified Barium Swallow 10/10/21 14:17 IMPRESSION: 1. No aspiration or penetration identified. 2. Poor esophageal motility with to and fro spasm in the esophagus. 3. The patient experienced difficulty with the barium pill. The pill was retained in the distal esophagus after multiple swallowing attempts. A separate report of recommendations and findings will follow from the speech therapy service. Laboratory Results WBC 6.9 10^3/uL (4.0-10.0) 10/10/21 04:20 RBC 4.14 10^6/uL (4.1-5.3) 10/10/21 04:20 Hgb 12.0 g/dL (11.5-15.3) 10/10/21 04:20 Hct 39.0 % (37.0-47.0) 10/10/21 04:20 MCV 94.2 fl (81-99) 10/10/21 04:20 MCH 29.0 pg (28.0-34.0) 10/10/21 04:20 MCHC 30.8 g/dL (30.0-36.0) D 10/10/21 04:20 RDW 12.4 % (12.1-15.1) 10/10/21 04:20 Plt Count 234 10^3/cmm (130-400) 10/10/21 04:20 MPV 9.6 fL (7.4-10.4) 10/10/21 04:20 Neut % (Auto) 55.3 % 10/10/21 04:20 Lymph % (Auto) 31.0 % 10/10/21 04:20 [place] % (Auto) 8.4 % 10/10/21 04:20 Eos % (Auto) 4.4 % 10/10/21 04:20 Baso % (Auto) 0.6 % 10/10/21 04:20 Neut # (Auto) 3.80 10^3/uL (1.8-7.7) 10/10/21 04:20 Lymph # (Auto) 2.1 10^3/uL (0.8-4.8) 10/10/21 04:20 [place] # (Auto) 0.6 10^3/uL (0.2-0.9) 10/10/21 04:20 Eos # (Auto) 0.3 10^3/uL (0.0-0.8) 10/10/21 04:20 Baso # (Auto) 0.0 10^3/uL (0.0-0.1) 10/10/21 04:20 Nucleated RBC % (auto) 0 % 10/10/21 04:20 Nucleated RBCs # 0.0 /100WBC 10/10/21 04:20 Sodium 136 mmol/L (136-145) 10/11/21 06:52 Potassium 4.2 mmol/L (3.5-5.1) 10/11/21 06:52 Chloride 105 mmol/L (98-107) 10/11/21 06:52 Carbon Dioxide 23 mmol/L (22-29) 10/11/21 06:52 Anion Gap 12.2 (5-19) 10/11/21 06:52 BUN 17 mg/dL (8-23) 10/11/21 06:52 Creatinine 0.5 mg/dL (0.5-0.9) 10/11/21 06:52 GFR Calculation Not Reportable 10/11/21 06:52 Glucose 90 mg/dL (65-115) 10/11/21 06:52 POC Glucose 129 mg/dL (70-110) H 10/07/21 17:07 Calculated Osmolality 283 mOsm/kg (285-295) L 10/11/21 06:52 Calcium 8.2 mg/dL (8.5-10.5) L 10/11/21 06:52 Phosphorus 1.9 mg/dL (2.5-4.5) L 10/09/21 04:24 Magnesium 2.0 mg/dL (1.7-2.3) 10/09/21 04:24 Total Bilirubin 0.2 mg/dL (0.15-1.2) 10/10/21 04:20 AST 19 U/L (0-32) 10/10/21 04:20 ALT 17 U/L (0-33) 10/10/21 04:20 Alkaline Phosphatase 109 IU/L (35-105) H 10/10/21 04:20 Troponin T Baseline 7 ng/L (0-10) 10/06/21 23:35 Troponin T 120 Minute 6.47 ng/L (0-10) 10/07/21 01:25 Delta Troponin T -0.53 ABS# (0-10) L 10/07/21 01:25 Troponin T Hi Sens 6Hr 7.91 ng/L (0-10) 10/07/21 05:30 Troponin T Hi Sens 6Hr Delta 0.91 ng/L (0-12) 10/07/21 05:30 C-Reactive Protein 19.1 mg/L (0.0-4.9) H 10/09/21 04:24 NT-Pro-B Natriuret Pep 191 pg/mL (0-450) 10/06/21 23:35 Total Protein 6.4 g/dL (6.6-8.7) L 10/10/21 04:20 Albumin 3.0 g/dL (3.5-5.2) L 10/10/21 04:20 Globulin 3.4 g/dL (1.3-4.6) 10/10/21 04:20 Lipase 34 U/L (13-60) 10/06/21 23:35 Procalcitonin 0.05 ng/mL (0-0.5) 10/07/21 05:30 TSH 29.17 uIU/mL (0.27-4.20) H 10/06/21 23:35 Free T4 0.78 ng/dL (0.82-1.77) L 10/06/21 23:35 Urine Color Yellow (Yellow) 10/07/21 03:15 Urine Appearance Cloudy (CLEAR) 10/07/21 03:15 Urine pH 6 (5-7) 10/07/21 03:15 Ur Specific [place] 1.005 (1.005-1.030) 10/07/21 03:15 Urine Protein Trace (Negative) 10/07/21 03:15 Urine Glucose (UA) Norm (Normal) 10/07/21 03:15 Urine Ketones Negative (Negative) 10/07/21 03:15 Urine Blood 3+ (Negative) H 10/07/21 03:15 Urine Nitrate Negative (Negative) 10/07/21 03:15 Urine Bilirubin Neg (Negative) 10/07/21 03:15 Urine Urobilinogen Norm mg/dL (Negative) 10/07/21 03:15 Ur Leukocyte Esterase 2+ (Negative) H 10/07/21 03:15 Urine RBC 5-10 /hpf (0-2) H 10/07/21 03:15 Urine WBC Too numerous to cnt /hpf (0-5) H 10/07/21 03:15 Ur Squamous Epith Cells 0-4 /hpf (0-5) H 10/07/21 03:15 Amorphous Sediment Not Reportable 10/07/21 03:15 Urine Bacteria 2+ /hpf (NONE) H 10/07/21 03:15 SARS-CoV-2 Ag (Rapid) Negative (Negative) 10/06/21 23:26 Vitals Last Vital Signs Temp 97.5 F L 10/11/21 07:28 Pulse 58 L 10/11/21 07:28 Resp 12 10/11/21 07:28 BP 155/80 10/11/21 07:28 Pulse Ox 95 10/11/21 07:28 O2 Del Method 10/11/21 07:28 Discharge Plan Discharge Patient Disposition: Home Condition: Stable Prescriptions: New oxycodone-acetaminophen 7.5-325 mg tablet 1 tab PO Q8H PRN (Reason: pain) Qty: 20 0RF Senna-S 8.6-50 mg tablet 1 tab-cap PO DAILY Qty: 30 0RF lidocaine 5 % adhesive patch,medicated 1 patch topical DAILY Qty: 30 0RF Rx Instructions: leave on most painful area for up to 12 hrs Xanax 0.25 mg tablet 0.25 mg PO BID PRN (Reason: anxiety) Qty: 20 0RF gabapentin 300 mg capsule 300 mg PO BID 30 Days Qty: 60 0RF Continued tramadol 50 mg Tablet 50 - 100 mg PO TID PRN (Reason: Moderate Pain (Scale Score 5-6)) levothyroxine 88 mcg tablet 88 mcg PO 0800 sertraline 25 mg tablet 25 mg PO 0900 lisinopril 2.5 mg tablet 2.5 mg PO 0900 Discharge Orders: Discharge Order (Routine); Ordered 10/11/21 Ordered By: Galen Cespedes Referrals: Francisco Monsivais MD [Primary Care Provider] - 10/17/21 2:15 pm Efraín Segundo DO [Physician] - 10/20/21 2:30 pm (Compression fractures) Tab Self MD [Physician] - 7-10 days (for EGD and botox will call pt with appointment information ) Chung Mays MD [Physician] - 4-7 days (Cystoscopy, stent removal Will call patient with appointment information. ) Luan Wellington MD [Physician] - 10/12/21 9:40 am (Compression fracture spine; will need to check in no later than 9:20 for 9:40 appointment. ) Discharge Diet: Soft Mechanical Discharge Activity: Limit activity as instructed Patient Instructions: Oxycodone/Acetaminophen (By mouth), Alprazolam (By mouth), Laxative, Stool Softeners (By mouth), Gabapentin (By mouth), Lidocaine Patch (On the skin), Dysphagia (GEN), Opioid Safety, Post Anesthesia Care Discharge Attestations Time Spent in Discharge Care*: less than 30 min Quality Metrics Clinical Quality Measures [ No reported AMI, CVA or VTE this stay] Coding Level of Care Code Acute Chg FW DC note Diagnoses Urinary tract infection N39.0 Right ureteral stone N20.1 Mass of ureter N28.89 Hyponatremia E87.1 Dysphagia R13.10 Compression fracture Dysphagia R13.10
[2021-10-13 04:23] LABS: Stone Source RIGHT URETER
== END 2021-10-11 16:05 | disposition home or self-care (01) ==
LOC: ER 10-07 04:55 → MEDSURG 10-07 05:35
PROVIDERS: Urology; Admitting Provider Family Medicine; Emergency Provider Emergency Medicine; PCP Family Medicine; Visit Provider Internal Medicine
PROC: 0TJB8ZZ Inspection of Bladder, Via Natural or Artificial Opening Endoscopic (ICD-10-PCS; CPT 52000; principal; 2021-10-07 13:00)
PROC: (CPT 52354; 2021-10-07 13:00)
PROC: (CPT 74420; 2021-10-07 13:00)
PROC: 0TJ98ZZ Inspection of Ureter, Via Natural or Artificial Opening Endoscopic (ICD-10-PCS; CPT 52351; 2021-10-07 13:00)
PROC: (CPT 50605; 2021-10-07 13:00)
DX: N20.1 Calculus of ureter (principal); N39.0 Urinary tract infection, site not specified; N28.89 Other specified disorders of kidney and ureter; E87.1 Hypo-osmolality and hyponatremia; R13.10 Dysphagia, unspecified; Z85.89 Personal history of malignant neoplasm of other organs and systems; S32.049A Unspecified fracture of fourth lumbar vertebra, initial encounter for closed fracture; X58.XXXA Exposure to other specified factors, initial encounter; K22.4 Dyskinesia of esophagus; I10 Essential (primary) hypertension; F41.9 Anxiety disorder, unspecified; F32.A Depression, unspecified; E03.9 Hypothyroidism, unspecified; G89.29 Other chronic pain; Z79.891 Long term (current) use of opiate analgesic; K59.09 Other constipation
CPT/HCPCS: 52354; 52356; 36415; 36416; 51702; 71045; 71260; 72148; 74177; 74230; 76000; 80048; 80053; 81001; 82365; 82962; 83690; 83735; 83880; 84100; 84145; 84439; 84443; 84484; 85025; 86140; 87040; 87086; 87426; 88300; 88305; 92523; 92526; 92610; 92611; 93005; 93306; 94664; 94760; 96365; 96372; 96375; 97110; 97116; 97161; 97530; 99285; C2625; C9113; G0378; J0630; J0696; J1100; J1170; J1650; J2270; J2360; J2405; J2543; J2704; J3010; J7030; Q9967

== ENCOUNTER → 2021-10-12 09:45 | Outpatient (BNVA) | payer MEDICARE, SELFPAY | PROVIDERS: PCP Family Medicine; Referring Provider Internal Medicine; Visit Provider Anesthesiology Pain Medicine | DX: M43.16 Spondylolisthesis, lumbar region (principal); M79.604 Pain in right leg; M79.605 Pain in left leg; M47.816 Spondylosis without myelopathy or radiculopathy, lumbar region; M51.16 Intervertebral disc disorders with radiculopathy, lumbar region | CPT/HCPCS: 99205 ==

== ENCOUNTER → 2021-10-18 14:17 | Outpatient (BNVA) | payer MEDICARE, SELFPAY | PROVIDERS: PCP Family Medicine; Visit Provider Urology | DX: N20.9 Urinary calculus, unspecified (principal); Z96.0 Presence of urogenital implants; C66.9 Malignant neoplasm of unspecified ureter; M51.16 Intervertebral disc disorders with radiculopathy, lumbar region | CPT/HCPCS: 52310; 99214 ==

== ENCOUNTER → 2021-10-25 14:59 | Outpatient (BNVA) | payer MEDICARE, SELFPAY | PROVIDERS: PCP Family Medicine; Referring Provider Internal Medicine; Visit Provider Orthopaedic Surgery | DX: M43.8X6 Other specified deforming dorsopathies, lumbar region (principal); M51.36 Other intervertebral disc degeneration, lumbar region; M48.56XA Collapsed vertebra, not elsewhere classified, lumbar region, initial encounter for fracture; M43.16 Spondylolisthesis, lumbar region | CPT/HCPCS: 72100; 99203; 99204 ==

== ENCOUNTER → 2021-11-08 13:32 | Outpatient (BNVA) | payer MEDICARE, SELFPAY | PROVIDERS: PCP Family Medicine; Visit Provider Orthopaedic Surgery | DX: M48.56XA Collapsed vertebra, not elsewhere classified, lumbar region, initial encounter for fracture (principal) | CPT/HCPCS: 72100; 99214 ==

== ENCOUNTER 2021-11-16 12:44 | Day surgery (SDC) | payer MEDICARE, SELFPAY ==
[2021-11-15 11:40] VITALS: BMI 22.8
--- NOTE | 2021-11-16 | SCC_ITS ---
Procedure done: 1. L4 Kyphoplasty 50.3 seconds of fluoroscopic guidance, for a cumulative dose of 70.7mGy and 22.5 mGy , was provided to Dr. Segundo by the radiology department. C-arm images of the lumbar spine were saved for the patient's permanent record. [facility]
--- NOTE | 2021-11-16 13:09 | SC_ITS ---
WS: [id number] INTRAOPERATIVE TECHNIQUE: 3 Spot fluoroscopic images for intraoperative purposes. FLUOROSCOPY TIME: 13.3 seconds CLINICAL INFORMATION: L4 kyphoplasty COMPARISON: None. FINDINGS: Fluoroscopy used for intraoperative kyphoplasty at the L4 level. Chronic spondylolysis L5-S1 with 2.5 cm anterolisthesis unchanged. Osteopenia. Chronic compression of L2 unchanged. Aortic calcification. SC/C-arm FL for Kyphoplasty IMPRESSION: Images obtained for intraoperative purposes..
--- NOTE | 2021-11-16 13:32 | W.PM.OPSUD ---
Surgery/Procedure H&P Update DATE OF PROCEDURE: November 16, 2021 DATE H&P PERFORMED: 11/08/21 H&P UPDATE INFORMATION: I have reviewed H&P completed within last 30 days, I have examined patient prior to procedure and No changes to prior documentation PREOP DIAGNOSIS: Lumbar 4 compression fracture PLANNED PROCEDURE: Operation Date: 11/16/21 14:40 Proposed Procedures p Kyphoplasty L3 45570/S32.040A(Not Applicable) - Efraín Segundo DO
--- NOTE | 2021-11-16 13:35 | P.ANESASSM_ITS ---
Pre-Anesthetic Assessment Height/Weight: Height 1.55 m Weight 54.885 kg Preop Diagnosis: Lumbar 4 compression fracture Operation Date: 11/16/21 14:40 Proposed Procedures p Kyphoplasty L3 87937/S32.040A(Not Applicable) - Efraín Segundo DO Familial anesthetic complications: None Was Beta Gavino taken within 24 hours: N/A Was Clonidine taken within 24 hours: N/A Last intake: > 8hrs Social No alcohol and No tobacco Exam alert, oriented x 3, clear to auscultation bilaterally and regular rate & rhythm Airway Mallampati: Class II Dentition: false CV/HEM Hypertension Metabolic Thyroid Disease Anesthetic Plan ASA status: 3 Anesthesia: General Risk of > 500 ml blood loss (7ml/kg in children): No Medications/Allergies Home Medications Medication Instructions Recorded Confirmed Last Taken Type lisinopril 2.5 mg tablet 2.5 mg PO 0900 10/07/21 11/15/21 10/06/21 09:00 History alprazolam 0.25 mg tablet (Xanax) 0.25 mg PO BID PRN anxiety #20 tabs 10/11/21 11/15/21 Unknown Rx levothyroxine 88 mcg tablet 88 mcg PO 0800 #30 tabs 10/11/21 11/15/21 10/06/21 08:00 Rx lidocaine 5 % topical patch 1 patch topical DAILY #30 ea 10/11/21 11/15/21 Unknown Rx oxycodone-acetaminophen 7.5 mg-325 1 tab PO Q8H PRN pain #20 tabs 10/11/21 11/15/21 Unknown Rx mg tablet sennosides 8.6 mg-docusate sodium 1 tab-cap PO DAILY #30 tabs 10/11/21 11/15/21 Unknown Rx 50 mg tablet (Senna-S) sertraline 25 mg tablet 25 mg PO 0900 #30 tabs 10/11/21 11/15/21 10/06/21 09:00 Rx tramadol 50 mg tablet 50 - 100 mg PO TID PRN Moderate 10/11/21 11/15/21 10/06/21 18:00 Rx Pain (Scale Score 5-6) #20 tabs simethicone 125 mg capsule (Gas 125 mg PO DAILY PRN gas 10/18/21 11/15/21 Unknown History Relief (simethicone)) Allergies Allergy/AdvReac Type Severity Reaction Status Date / Time No Known Allergies Allergy Verified 11/08/21 13:40 [facility] Anesthesia Medical History Anxiety and depression Hypertension Hypothyroidism Primary ureteral transitional cell carcinoma Large left distal ureteral mass confirmed via biopsy to be high-grade TCCA. Diagnosed September 2021 Urolithiasis Obstructing right distal ureteral stone required endoscopic laser lithotripsy September 2021. Transient stent Surgical History History of cholecystectomy History of hysterectomy Family History Son Diabetes Father , AT AGE 80 No problems noted. Mother , IN HER 76 MVA (motor vehicle accident) Social History Smoking and tobacco status: never smoked Second hand smoke exposure: No Alcohol intake: never Marital status: / Current occupational status: retired History of recent travel: No Data Anesthesia Cardiac Studies: Echocardiogram 10/07/21
[2021-11-16] MEDS: sodium chloride 0.9% 1,000 ML 30 ML IV (14:06)
[2021-11-16] MEDS: ceFAZolin 2,000 MG in sodium chloride 0.9% (plus) 50 ML 100 MG IV (14:10)
[2021-11-16 15:06] VITALS: BP 163/83; PULSE 103; RESP 21; TEMP 36.7; O2SAT 100
[2021-11-16 15:10] VITALS: BP 157/73; PULSE 91; RESP 26; O2SAT 98
[2021-11-16 15:15] VITALS: BP 161/87; PULSE 82; RESP 20; O2SAT 100
[2021-11-16 15:20] VITALS: BP 163/87; PULSE 80; RESP 17; O2SAT 100
[2021-11-16 15:25] VITALS: BP 151/76; PULSE 76; RESP 20; TEMP 36.7; O2SAT 99
--- NOTE | 2021-11-16 15:35 | PM.OP ---
Operative Report Date of procedure: November 16, 2021 Pre-op diagnosis: Preop Diagnosis Lumbar 4 traumatic wedge compression fracture Post-op diagnosis: same Procedure done: 1. L4 Kyphoplasty Surgeon: Efraín Segundo Plate Printer: Terence Gonzales Plate Printer: The operations assistant, Terence Gonzales, RAQUEL was needed for his expertise with spine. He was important and necessary throughout the procedure to complete in a safe and timely manner. He assisted with patient positioning prepping and draping tissue retraction suctioning of the operative field protection of the critical structures and tissue closure Estimated blood loss (mL): 5 Procedure: L4 Kyphoplasty Patient was brought to the operative suite after undergoing anesthesia all areas impingement well-padded after she was placed prone on the operating room table. Biplanar fluoroscopy was brought into the operative field identifying the L4 pedicles. Patient was then prepped and draped normal sterile fashion. Stab incision made at the superior lateral aspect of the left pedicle. The awl was inserted. Followed by the drill followed by the balloon balloons inflated. This process was also repeated on the right superior lateral pedicle. The awl was inserted followed by the drill followed by the balloon. The voids that were created by the balloon were then filled with cement this was done observing under AP and lateral fluoroscopy. Once the vertebrae was felt to be adequately filled the tubes were removed and AP lateral fluoroscopy ensured that the cement was in the prone position. Wounds were irrigated and closed with nylon suture sterile dressings applied patient was transferred to the PACU in stable condition.
[2021-11-16 15:41] VITALS: BP 158/70; PULSE 61; RESP 18; TEMP 36.6; O2SAT 99
== END 2021-11-16 17:00 | disposition home or self-care (01) ==
PROVIDERS: PCP Family Medicine; Visit Provider Orthopaedic Surgery
PROC: (CPT 22514; principal; 2021-11-16 14:30)
DX: S32.040A Wedge compression fracture of fourth lumbar vertebra, initial encounter for closed fracture (principal); I10 Essential (primary) hypertension; E03.9 Hypothyroidism, unspecified; F41.9 Anxiety disorder, unspecified; F32.A Depression, unspecified
CPT/HCPCS: 22514; 76000; J1100; J2405; J2704; J2710; J3010; J3490; J7030

== ENCOUNTER → 2021-12-01 12:57 | Outpatient (BNVA) | payer MEDICARE, SELFPAY | PROVIDERS: PCP Family Medicine; Visit Provider Orthopaedic Surgery | DX: Z47.89 Encounter for other orthopedic aftercare (principal) | CPT/HCPCS: 99024; 99212 ==

== ENCOUNTER 2022-03-09 22:20 | Emergency (ER) | payer MEDICARE, SELFPAY ==
[2022-03-09 22:27] VITALS: BP 182/94; PULSE 97; RESP 18; TEMP 36.7; O2SAT 98
--- NOTE | 2022-03-09 22:40 | ED_ITS ---
HPI - Fall General: Chief Complaint: Fall Stated Complaint: Fell Tail Bone Pain Time Seen by Provider: 03/09/22 22:27 History of Present Illness: Ms. Israel is an 86-year-old lady presenting to the emergency department for fall. She reports being at her baseline health, typically ambulates with a cane and went to get out of car without assistance when she fell to the ground hitting her head and back. Immediately had pain and felt like the wind was knocked out of her. Has had continued pain in the back of her head and tailbone region of her other symptoms have resolved. Symptoms are worse with movement and palpation. No other specific changes in health, exacerbating, or alleviating factors identified. Onset (ago): hour(s) Fall from: standing Fall witnessed: no Loss of consciousness: None Prolonged down time: no Symptoms prior to fall: none Context: history of frequent falls Location of injury: head and back Severity: moderate Quality: aching Review of Systems General: Reports: 10 or more systems reviewed and unremarkable except in HPI and below PFSH ED PFSH: Medical History Anxiety and depression Hypertension Hypothyroidism Primary ureteral transitional cell carcinoma Large left distal ureteral mass confirmed via biopsy to be high-grade TCCA. Diagnosed September 2021 Urolithiasis Obstructing right distal ureteral stone required endoscopic laser lithotripsy September 2021. Transient stent Surgical History History of cholecystectomy History of hysterectomy Family History Son Diabetes Father , AT AGE 80 No problems noted. Mother , IN HER 76 MVA (motor vehicle accident) Social History Smoking and tobacco status: never smoked Second hand smoke exposure: No Alcohol intake: never Marital status: / Current occupational status: retired History of recent travel: No Physical Exam Const: COMMON NORMALS: alert GENERAL APPEARANCE: cooperative and well developed HENMT: COMMON NORMALS: normocephalic and atraumatic HEAD & SCALP: normoceph alic and atraumatic THROAT: posterior oropharynx normal OTHER: No cavanaugh signs or raccoon eyes. No hemotympanum. No otorrhea or rhinorrhea. Jaw alignment normal. Dentition baseline. No obvious bony step-offs. No septal hematoma. No evidence of ocular entrapment. Eye: COMMON NORMALS: conjunctivae normal CONJUNCTIVA: Yes conjunctivae normal SCLERA: sclerae normal Neck/C-Spine: COMMON NORMALS: supple GENERAL: Yes trachea midline Resp: COMMON NORMALS: normal respiratory effort EFFORT & INSPECTION: Yes able to speak in complete sentences Cardio: COMMON NORMALS: regular rate and regular rhythm RATE: regular rate RHYTHM: regular rhythm GI: COMMON NORMALS: Soft to palpation PALPATION: Yes Soft to palpation and Yes Tenderness to palpation present (GI) Back/Pelvis: OTHER: Upper and lower back tenderness to palpation without obvious deformity or step- off. Extremity: NARRATIVE EXTREMITY EXAM: CMS intact x4 peripherally GENERAL: Yes normal exam except as noted and No edema Neuro: COMMON NORMALS: moves all extremities SENSORIUM/ORIENTATION: Yes alert and No Orientation impaired Psych: COMMON NORMALS: mental status grossly normal and Normal thought process present THOUGHT PROCESS: Normal thought process present Course Vital Signs: Vital signs: Vital Signs Temperature 98.0 F 03/09/22 22:27 Pulse Rate 91 03/10/22 01:50 Respiratory Rate 16 03/10/22 01:50 Blood Pressure 169/78 03/10/22 01:50 Pulse Oximetry 97 03/10/22 01:50 Oxygen Delivery Me thod 03/10/22 01:50 MDM - Fall Medical Decision Making 86-year-old lady presenting to the emergency department due to fall. History of frequent falls and was trying to ambulate without assistance. Patient does endorse back and head pain. Exam as above. Head to toe exam performed. EKG shows sinus rhythm, no STEMI, normal intervals. Given provided clinical history no indication for laboratory studies at this time. Prior laboratory studies recent reviewed. CT imaging obtained based on physical exam and clinical history provided. CT imaging negative for acute traumatic injury. Incidental findings discussed. During ED course patient treated with analgesia which improved discomfort. She was able to ambulate at her baseline. Most likely cause of patient symptoms is fall with soft tissue contusions/injury The results of ED evaluation were discussed with the patient including prescriptions and/or symptomatic cares (if applicable) including appropriate and responsible use, followup plan, and return precautions. The patient verbalized understanding and felt safe for discharge. Medical Records I reviewed the patient's medical records. Lab Data I reviewed the patient's lab results. Radiology Impressions Cervical Spine CT 03/10/22 00:10 IMPRESSION: 1. No acute findings. 2. Chronic mid to upper cervical spine degenerative changes and mild central stenosis Chest/Abdomen/Pelvis CT 03/10/22 00:10 IMPRESSION: No evidence of acute injury. IMPRESSION: 1. No evidence of acute injury. 2. There are multiple nonobstructing right renal pelvis stones, largest of which measures 9 mm.. 3. Diverticulosis without diverticulitis. COMMENTS: Consistent with the [employer]'s Incidental Findings Committee white paper (J Am Sheila Radiol 2018): Any incidental renal lesion less than 1 cm or classified as too small to characterize, or any incidental cystic renal lesion characterized as simple-appearing, is likely benign. No follow-up imaging is recommended for these lesions per consensus recommendations based on imaging criteria. Head CT 03/10/22 00:10 IMPRESSION: 1. No acute intracranial findings. 2. Unchanged atrophy and microangiopathy Discharge Plan Discharge Patient Disposition: Home Clinical Impression: Fall, Coccyx contusion, Contusion of multiple sites Condition: Stable Prescriptions: No Action simethicone [Gas Relief (simethicone)] 125 mg capsule 125 mg PO DAILY PRN (Reason: gas) lisinopril 2.5 mg tablet 2.5 mg PO 0900 oxycodone-acetaminophen 7.5-325 mg tablet 1 tab PO Q8H PRN (Reason: pain) Qty: 20 0RF Hold Instructions: Resume on 11/23/21. take the 10mg for a week then go back to 7.5 sennosides-docusate sodium [Senna-S] 8.6-50 mg tablet 1 tab-cap PO DAILY Qty: 30 0RF lidocaine 5 % adhesive patch,medicated 1 patch topical DAILY Qty: 30 0RF Rx Instructions: leave on most painful area for up to 12 hrs alprazolam [Xanax] 0.25 mg tablet 0.25 mg PO BID PRN (Reason: anxiety) Qty: 20 0RF tramadol 50 mg Tablet 50 - 100 mg PO TID PRN (Reason: Moderate Pain (Scale Score 5-6)) Qty: 20 0RF levothyroxine 88 mcg tablet 88 mcg PO 0800 Qty: 30 0RF sertraline 25 mg tablet 25 mg PO 0900 Qty: 30 0RF Discharge Orders: Discharge ED (Routine); Ordered 03/10/22 Ordered By: Tulio Mead Referrals: Francisco Monsivais MD [Primary Care Provider] - Discharge Diet: Usual diet Discharge Activity: Increase activity as tolerated Patient Instructions: Fall Prevention for Older Adults (ED), Contusion in Adults (ED), Opioid Safety Activity Restrictions/Additional Instructions: Thank you for visiting the emergency department. You were seen and evaluated for fall with the pain. No acute fractures or internal injuries were identified on CT imaging. The most likely cause of your pain is related to soft tissue bruising. The treatment for this is supportive. You may be more sore tomorrow however I would expect improvement over the next few days. Please follow-up with your primary care provider. You may use [id number] medications such as acetaminophen and ibuprofen for pain however please do not exceed the daily recommended dosage as listed on the packaging and please keep in mind that many namebrand medications contain the same active ingredients. Please avoid these medications if previously instructed to do so by another physician due to other underlying medical condition. Return to the emergency department for uncontrolled symptoms or anything else that you are concerned about and feel needs emergency department evaluation. Coding Level of Care Code ED [facility] for Seth Maza
--- NOTE | 2022-03-10 00:10 | ECG_ITS ---
[facility] Test Date: 2022-03-10 Pat Name: Brynn Israel Department: Room: Gender: Female Mechanic'S Assistant: : 1935 Requested By: Tulio Mead Order Number: [id number] Steven MD: Giselle Abel M.D. Measurements Intervals [place] Rate: 78 P: 60 FL: 154 QRS: 61 QRSD: 90 T: 72 QT: 349 QTc: 398 Interpretive Statements SINUS RHYTHM Compared to ECG 10/07/2021 04:40:46 Sinus bradycardia no longer present Electronically Signed On 03-10-2022 16:58:37 CHIEF I DISPATCHER by Giselle Abel M.D. [email or web address]
--- NOTE | 2022-03-10 00:10 | CTR_ITS ---
PROCEDURE INFORMATION: Exam: CT Head Without Contrast Exam date and time: 03/10/2022 12:23 AM Age: 86 years old Clinical indication: Injury or trauma; Fall; Blunt trauma (contusions or hematomas); Patient HX: Patient fell to the ground attempting to get out of vehicle. Landed supine striking occiput. C/O head, back, and rlq pain. ; Additional info: Fall, posterior headstrike TECHNIQUE: Imaging protocol: Computed tomography of the head without contrast. Radiation optimization: All CT scans at this facility use at least one of these dose optimization techniques: automated exposure control; mA and/or kV adjustment per patient size (includes targeted exams where dose is matched to clinical indication); or iterative reconstruction. COMPARISON: CT head wo con* [id number] 08/12/2020 12:40 AM RADIATION DOSE METRICS: Total DLP (mGy-cm): 1009.28 FINDINGS: Brain: No CT evidence for acute ischemia or hemorrhage. There is chronic severe sulcal widening in the frontoparietal lobes which is similar to 2001. Moderate to severe chronic periventricular microangiopathy. Cerebral ventricles: Age related enlargement. Paranasal sinuses: Visualized sinuses are unremarkable. No fluid levels. Mastoid air cells: Visualized mastoid air cells are well aerated. Bones/joints: Unremarkable. No acute fracture. Soft tissues: Unremarkable. CT/CT head wo con* [id number] IMPRESSION: 1. No acute intracranial findings. 2. Unchanged atrophy and microangiopathy
--- NOTE | 2022-03-10 00:10 | CTR_ITS ---
PROCEDURE INFORMATION: Exam: CT Chest Without Contrast; Diagnostic Exam date and time: 03/10/2022 12:29 AM Age: 86 years old Clinical indication: Injury or trauma; Fall; Blunt trauma (contusions or hematomas); Prior surgery; Surgery type: Gb. Hysterectomy. Kyphoplasty; Patient HX: Patient fell to the ground attempting to get out of vehicle. Landed supine striking occiput. C/O head, back, and rlq pain. History of compression fracture. ; Additional info: Fall, back pain, rlq pain TECHNIQUE: Imaging protocol: Diagnostic computed tomography of the chest without contrast. Radiation optimization: All CT scans at this facility use at least one of these dose optimization techniques: automated exposure control; mA and/or kV adjustment per patient size (includes targeted exams where dose is matched to clinical indication); or iterative reconstruction. COMPARISON: CT chest abd pel w con* 10/07/2021 2:16 AM RADIATION DOSE METRICS: Total DLP (mGy-cm): 507.9 FINDINGS: Lungs: There is bilateral bronchiectasis. Pleural spaces: Unremarkable. No pneumothorax. No pleural effusion. Heart: Unremarkable. No cardiomegaly. No pericardial effusion. Coronary arteries: Mild coronary artery calcifications. Lymph nodes: Unremarkable. No enlarged lymph nodes. Vasculature: There is mild atherosclerotic disease. Bones/joints: Unremarkable. No acute fracture. Soft tissues: Unremarkable. PROCEDURE INFORMATION: Exam: CT Abdomen And Pelvis Without Contrast Exam date and time: 03/10/2022 12:29 AM Age: 86 years old Clinical indication: Injury or trauma; Fall; Blunt trauma (contusions or hematomas); Prior surgery; Surgery type: Gb. Hysterectomy. Kyphoplasty; Patient HX: Patient fell to the ground attempting to get out of vehicle. Landed supine striking occiput. C/O head, back, and rlq pain. History of compression fracture. ; Additional info: Fall, back pain, rlq pain TECHNIQUE: Imaging protocol: Computed tomography of the abdomen and pelvis without contrast. Radiation optimization: All CT scans at this facility use at least one of these dose optimization techniques: automated exposure control; mA and/or kV adjustment per patient size (includes targeted exams where dose is matched to clinical indication); or iterative reconstruction. COMPARISON: CT chest abd pel w con* 10/07/2021 2:16 AM RADIATION DOSE METRICS: Total DLP (mGy-cm): 507.9 FINDINGS: Lungs: The lung bases are clear. No effusion Liver: Normal. No mass. Gallbladder and bile ducts: No wall thickening, pericholecystic fluid or stones. Pancreas: Normal. No ductal dilation. Spleen: Normal. No splenomegaly. Adrenal glands: Normal. No mass. Kidneys and ureters: There has been a left nephrectomy. There are multiple right renal cysts, largest measures 5.9 cm. There are multiple nonobstructing right renal pelvis stones, largest of which measures 9 mm.. Stomach and bowel: Diverticulosis without diverticulitis. Appendix: No evidence of appendicitis. Intraperitoneal space: Unremarkable. No free air. No significant fluid collection. Vasculature: Unremarkable. No abdominal aortic aneurysm. Lymph nodes: Unremarkable. No enlarged lymph nodes. Urinary bladder: Unremarkable as visualized. Reproductive: There has been a hysterectomy. Bones/joints: Grade 2 anterolisthesis at L5-S1 secondary to bilateral pars defects. kyphoplasty has been performed at L4. Stable L2 compression fracture. Soft tissues: Unremarkable. CT/[place] [id number] IMPRESSION: No evidence of acute injury. IMPRESSION: 1. No evidence of acute injury. 2. There are multiple nonobstructing right renal pelvis stones, largest of which measures 9 mm.. 3. Diverticulosis without diverticulitis. COMMENTS: Consistent with the [employer]'s Incidental Findings Committee white paper (J Am Sheila Radiol 2018): Any incidental renal lesion less than 1 cm or classified as too small to characterize, or any incidental cystic renal lesion characterized as simple-appearing, is likely benign. No follow-up imaging is recommended for these lesions per consensus recommendations based on imaging criteria.
--- NOTE | 2022-03-10 00:10 | CTR_ITS ---
PROCEDURE INFORMATION: Exam: CT Cervical Spine Without Contrast Exam date and time: 03/10/2022 12:26 AM Age: 86 years old Clinical indication: Injury or trauma; Fall; Blunt trauma; Patient HX: Patient fell to the ground attempting to get out of vehicle. Landed supine striking occiput. C/O head, back, and rlq pain. ; Additional info: Fall, posterior headstrike TECHNIQUE: Imaging protocol: Computed tomography of the cervical spine without contrast. Radiation optimization: All CT scans at this facility use at least one of these dose optimization techniques: automated exposure control; mA and/or kV adjustment per patient size (includes targeted exams where dose is matched to clinical indication); or iterative reconstruction. COMPARISON: CT head wo con* [id number] 03/10/2022 12:23 AM RADIATION DOSE METRICS: Total DLP (mGy-cm): 131.27 FINDINGS: Bones/joints: Chronic advanced degenerative changes around the odontoid. Chronic degenerative disc disease is most pronounced at C3-C4, C4-C5. No fracture or subluxation. Mild chronic central stenosis at C3-C4 and C4-C5 due to degenerative changes. Facet hypertrophy overall is greater on the right. Lungs: The visualized lung apices are clear. Soft tissues: Unremarkable. CT/CT cervical spin wo con* [id number] IMPRESSION: 1. No acute findings. 2. Chronic mid to upper cervical spine degenerative changes and mild central stenosis
[2022-03-10 00:31] VITALS: BP 174/83; PULSE 81; RESP 16; O2SAT 93
[2022-03-10 01:12] VITALS: BP 162/70; PULSE 81; RESP 16; O2SAT 95
[2022-03-10 01:45] VITALS: RESP 18
[2022-03-10] MEDS: oxyCODONE 5 mg IR Tab/Cap 2.5 MG PO (01:45)
[2022-03-10] MEDS: ketorolac 30 mg/mL INJ IM (01:46)
[2022-03-10] MEDS: acetaminophen 500 mg Tablet 1000 MG PO (01:47)
[2022-03-10 01:50] VITALS: BP 169/78; PULSE 91; RESP 16; O2SAT 97
--- NOTE | 2022-03-10 02:34 | PC.NURSE ---
Pt ambulated with minimal assistance without difficulty. Walked to alatorre and back. Reports feeling much better. MD notified.
== END 2022-03-10 02:44 | disposition home or self-care (01) ==
PROVIDERS: Emergency Provider Emergency Medicine; PCP Family Medicine
DX: S30.0XXA Contusion of lower back and pelvis, initial encounter (principal); Z85.54 Personal history of malignant neoplasm of ureter; W17.89XA Other fall from one level to another, initial encounter; I10 Essential (primary) hypertension
CPT/HCPCS: 70450; 71250; 72125; 74176; 93005; 96372; 99284; J1885

== ENCOUNTER 2022-12-14 13:58 | Outpatient (CLI) | payer MEDICARE, SELFPAY ==
--- NOTE | 2022-12-14 14:14 | MM_ITS ---
WS: [id number] BILATERAL 3D TOMOSYNTHESIS DIGITAL DIAGNOSTIC MAMMOGRAPHY WITH CAD CLINICAL INFORMATION: ANNUAL - HX BR CA HISTORY: History of breast cancer COMPARISON: 2016 TECHNIQUE: Bilateral CC, MLO, and ML views. FINDINGS: The breasts are composed of heterogeneous fibroglandular density, which can limit the detection of sm all underlying mass lesions. Vascular calcifications. Punctate and lucent centered calcifications. Ch ronic bilateral nipple inversion unchanged. Prior RIGHT lumpectomy. New suspicious spiculated 8 mm lesion upper outer RIGHT breast. This is new from 2016. Recommend furt her evaluation with ultrasound. IMPRESSION: MM/[place] [id number] BI-RADS: 0-Incomplete: Need additional imaging evaluation FOLLOW UP: Need Additional Imaging Recommend ultrasound upper outer RIGHT breast
== END 2022-12-14 13:59 | disposition home or self-care (01) ==
PROVIDERS: PCP Family Medicine; Visit Provider Family Medicine
DX: Z85.3 Personal history of malignant neoplasm of breast (principal)
CPT/HCPCS: 77062; G0279

== ENCOUNTER 2023-01-04 12:08 | Outpatient (CLI) | payer MEDICARE, SELFPAY ==
--- NOTE | 2023-01-04 12:12 | US_ITS ---
WS: [id number] ULTRASOUND BREAST RIGHT TECHNIQUE: Ultrasound right breast focused area of concern. CLINICAL INFORMATION: SUSPICIOUS LESION R BREAST/HX:BREAST CA COMPARISON: 12/14/2022 FINDINGS: Irregular slightly spiculated hypoechoic nodule at the 10 o'clock position 5 cm from the nipple measu ring 5.7 x 6.0 x 3.7 mm appears solid and has a suspicious appearance. Lesion is taller than wide. Th is corresponds to the mammographic findings. Recommend further evaluation with ultrasound-guided biop sy. IMPRESSION: BI-RADS 4 suspicious US/US breast RT limited* [id number] Follow-up: Recommend ultrasound-guided biopsy.
== END 2023-01-04 12:09 | disposition home or self-care (01) ==
LOC: RAD 12:08
PROVIDERS: PCP Family Medicine; Visit Provider Family Medicine
DX: N63.11 Unspecified lump in the right breast, upper outer quadrant (principal); Z85.3 Personal history of malignant neoplasm of breast
CPT/HCPCS: 76642

== ENCOUNTER → 2023-08-07 10:09 | Outpatient (BNVA) | payer MEDICARE, SELFPAY | PROVIDERS: PCP Family Medicine; Visit Provider Internal Medicine Cardiovascular Disease | DX: R07.9 Chest pain, unspecified (principal) | CPT/HCPCS: 93005 ==

== ENCOUNTER 2023-08-10 08:59 | Outpatient (CLI) | payer MEDICARE, SELFPAY ==
--- NOTE | 2023-08-10 10:01 | XRR_ITS ---
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 Views: 2 views. COMPARISON: [place] [id number] 10/03/2022 00:29 FINDINGS: Lungs: Trace subsegmental atelectasis versus scar in the mid left lung. Otherwise, the lungs are clear. The chest is hypoventilatory. Pleural spaces: No pleural effusions or evidence of a pneumothorax. Heart/Mediastinum: Unremarkable. No cardiomegaly. Bones/joints: There is a 50% compression fracture deformity at T12, new when compared to the March 10, 2022 CT chest abdomen and pelvis. XR/XR chest 2V* [id number] IMPRESSION: 1. Trace mid lung atelectasis versus scar. The lungs are otherwise clear 2. Interval development of a T12 compression fracture deformity, new compared to the March 10, 2022 CT
[2023-08-10 10:16] LABS: Basophils % 0.3 %; Eosinophils # 0.1 10^3/uL (0.0-0.8); Eosinophils % 1.2 %; Hematocrit 41.2 % (36-47); Lymphocytes # 1.4 10^3/uL (0.8-4.8); Lymphocytes % 19.3 %; Mean Corpuscular HGB Conc 32.3 g/dL (30-55); Mean Corpuscular Volume 89.8 fl (85-98); Mean Platelet Volume 9.5 fL (7.4-10.4); Monocytes # 0.7 10^3/uL (0.2-0.9); Monocytes % 9.3 %; Neutrophils # 5.07 10^3/uL (1.8-7.7); Neutrophils % 69.4 %; Nucleated Red Blood Cells % 0 %; Platelet Count 235 10^3/cmm (157-399); Red Blood Count 4.59 10^6/uL (3.85-5.65); Red Cell Distribution Width 11.9 % (12.1-15.1); White Blood Count 7.31 10^3/uL (3.29-11.43)
[2023-08-10 10:41] LABS: Alanine Aminotransferase 14 U/L (0-33); Albumin Level 3.8 g/dL (3.5-5.2); Alkaline Phosphatase 107 U/L (35-105); Anion Gap 11.6 (5-19); Aspartate Amino Transferase 16 U/L (0-32); Blood Urea Nitrogen 31 mg/dL (8-23); Calcium 10.2 mg/dL (8.5-10.5); Carbon Dioxide 28 mmol/L (22-29); Chloride 100 mmol/L (98-107); Globulin 4.1 g/dL (1.3-4.6); Glucose 90 mg/dL (65-115); Osmolality Calculated 286 mOsm/kg (285-295); Potassium 4.6 mmol/L (3.5-5.1); Sodium 135 mmol/L (136-145); Total Bilirubin 0.4 mg/dL (0.15-1.2); Total Protein 7.9 g/dL (6.6-8.7)
[2023-08-10 10:42] LABS: Cholesterol 158 mg/dL (0-200); HDL Cholesterol 51 mg/dL (60-100); LDL Cholesterol Calculated 70 mg/dL (50-129); LDL HDL Ratio 1.37 RATIO (0.00-3.22); Triglycerides 184 mg/dL (0-150)
== END 2023-08-10 09:00 | disposition home or self-care (01) ==
PROVIDERS: PCP Family Medicine; Visit Provider Family Medicine
DX: Z79.899 Other long term (current) drug therapy (principal); J98.4 Other disorders of lung; M43.8X4 Other specified deforming dorsopathies, thoracic region
CPT/HCPCS: 71046; 80053; 80061; 85025

== ENCOUNTER 2023-08-28 17:19 | Emergency (ER) | payer MEDICARE, SELFPAY ==
[2023-08-28 17:42] VITALS: BP 187/100; PULSE 105; RESP 16; TEMP 37.1; O2SAT 96
--- NOTE | 2023-08-28 19:34 | CTR_ITS ---
PROCEDURE INFORMATION: Exam: CT Lumbar Spine Without Contrast Exam date and time: 08/28/2023 8:01 PM Age: 87 years old Clinical indication: Low back pain; Prior surgery; Surgery date: 6+ months; Surgery type: Facet arthropathy TECHNIQUE: Imaging protocol: Computed tomography of the lumbar spine without contrast. Radiation optimization: All CT scans at this facility use at least one of these dose optimization techniques: automated exposure control; mA and/or kV adjustment per patient size (includes targeted exams where dose is matched to clinical indication); or iterative reconstruction. COMPARISON: MR lumbar spine wo con* [id number] 10/10/2021 2:46 PM RADIATION DOSE METRICS: Total DLP (mGy-cm): 561.37 FINDINGS: Bones/joints: The bony structures demonstrate diffuse osteopenia. There is an old compression fracture involving the L2 vertebral body. The fracture comprises about 70% of vertebral body height. There is an old compression fracture involving the L4 vertebral body that has undergone kyphoplasty. The fracture comprises about 30% of vertebral body height. There is a grade 2 anterior spondylolisthesis at the L5-S1 level with bilateral pars defects noted. There is severe degenerative disc disease here. I see no acute bony fracture or subluxation. Soft tissues: Unremarkable. CT/CT lumbar spine wo con* [id number] IMPRESSION: 1. No acute findings. 2. Old compression fractures at L2 and L4 with osteoporosis 3. Spondylolisthesis with pars defects and degenerative disc disease at L5-S1
--- NOTE | 2023-08-28 19:34 | CTR_ITS ---
PROCEDURE INFORMATION: Exam: CT Cervical Spine Without Contrast Exam date and time: 08/28/2023 8:04 PM Age: 87 years old Clinical indication: Other: Low back pain; Additional info: Neck pain TECHNIQUE: Imaging protocol: Computed tomography of the cervical spine without contrast. Radiation optimization: All CT scans at this facility use at least one of these dose optimization techniques: automated exposure control; mA and/or kV adjustment per patient size (includes targeted exams where dose is matched to clinical indication); or iterative reconstruction. COMPARISON: CT cervical spin wo con* [id number] 03/10/2022 12:26 AM RADIATION DOSE METRICS: Total DLP (mGy-cm): 149 FINDINGS: Bones: There is multilevel degenerative disc disease along with vertebral body spurring and facet arthropathy. No fracture or subluxation. The bony structures demonstrate diffuse osteopenia. Lungs: Lung apices are normal. Soft tissues: Unremarkable. CT/CT cervical spin wo con* [id number] IMPRESSION: Osteopenia with multilevel arthritic changes
--- NOTE | 2023-08-28 19:34 | CTR_ITS ---
PROCEDURE INFORMATION: Exam: CT Thoracic Spine Without Contrast Exam date and time: 08/28/2023 7:58 PM Age: 87 years old Clinical indication: Pain in thoracic spine; Additional info: Middle back pain TECHNIQUE: Imaging protocol: Computed tomography of the thoracic spine without contrast. Radiation optimization: All CT scans at this facility use at least one of these dose optimization techniques: automated exposure control; mA and/or kV adjustment per patient size (includes targeted exams where dose is matched to clinical indication); or iterative reconstruction. COMPARISON: [place] [id number] 03/10/2022 12:29 AM RADIATION DOSE METRICS: Total DLP (mGy-cm): 625 FINDINGS: Bones/joints: The bony structures demonstrate diffuse osteopenia. No fracture or subluxation noted. Soft tissues: Unremarkable. CT/CT thoracic spin wo con* [id number] IMPRESSION: No acute findings.
--- NOTE | 2023-08-28 19:37 | ED_ITS ---
HPI - Back Pain/Injury General: Chief Complaint: Back Pain/Injury Stated Complaint: Back Pain Time Seen by Provider: 08/28/23 18:18 Source: patient Mode of arrival: ambulatory Limitations: no limitations History of Present Illness: Patient is an 87-year-old female presenting to the emergency department complaining of acute on chronic back pain beginning Sunday after they hit a bump in the driveway. Patient notes that the pain is only steadily increased, is to her upper, middle, and low back. She denies any distal weakness but does state that her feet are going numb. She has a history of lumbar decompression, this was performed about a year ago and she has not followed up with orthopedic/spine since. She is not having any bowel or bladder incontinence. States that she has pain with any range of motion and this has hindered her walking ability. No direct traumas reported. Patient is not reporting any other pertinent historical factors at this time and states that she has been taking tramadol at home but has not been helping. MD elicited complaint: back pain Pertinent past history: prior back pain Onset (ago): day(s) Timing: constant and progressively worsening Severity: severe Similar Symptoms Previously: Yes Location: lumbar spine and thoracic spine Exacerbating factors: movement and walking Relieving factors: none Context: other (Hit a bump while driving) Associated symptoms: Reports difficulty walking; Deny abdominal pain, chills, fever(s), nausea or vomiting Treatments prior to arrival: prescription analgesics Review of Systems General: Reports: 10 or more systems reviewed and unremarkable except in HPI and below Const: Denies: fever(s) or chills Card: Denies: chest pain Resp: Denies: dyspnea or productive cough GI: Denies: abdominal pain, nausea, vomiting or diarrhea : Denies: flank pain Musc: Reports: back pain and limited range of motion; Denies: neck pain, extremity pain, extremity swelling, joint pain, joint swelling, joint redness, joint warmth or muscle weakness Skin/Breast: Denies: rash Neuro: Reports: numbness in extremities and difficulty walking; Denies: headache(s) or weakness in extremities PFS ED PFSH: Medical History Urolithiasis Obstructing right distal ureteral stone required endoscopic laser lithotripsy September 2021. Transient stent Primary ureteral transitional cell carcinoma Large left distal ureteral mass confirmed via biopsy to be high-grade TCCA. Diagnosed September 2021 Anxiety and depression Hypothyroidism Hypertension Surgical History History of hysterectomy History of cholecystectomy Family History Son Diabetes Father , AT AGE 80 No problems noted. Mother , IN HER 76 MVA (motor vehicle accident) Social History Smoking and tobacco/nicotine status: never used tobacco/nicotine Second hand smoke exposure: No Alcohol intake: never Substance/Drug Use: never Marital status: / Current occupational status: retired Physical Exam Const: COMMON NORMALS: no acute distress, patient oriented x3, no limitations, healthy appearing, alert and well nourished HENMT: COMMON NORMALS: normocephalic and atraumatic HEAD & SCALP: normocephalic and atraumatic Neck/C-Spine: COMMON NORMALS: full ROM, supple and no meningeal signs Resp: COMMON NORMALS: normal respiratory effort, No use of accessory muscles and clear to auscultation bilaterally AUSCULTATION: clear to auscultation bilaterally Cardio: COMMON NORMALS: regular rate and regular rhythm RATE: regular rate RHYTHM: regular rhythm Back/Pelvis: OTHER: Reproducible tenderness to palpation of the spinous process of the upper thoracic down to the lumbar back. Very limited range of motion due to the pain. Deep tendon reflexes intact. No obvious signs of trauma or deformity. No bruising. Extremity: COMMON NORMALS: normal to inspection, full ROM, capillary refill normal, no joint enlargement and no clubbing, cyanosis or edema Neuro: COMMON NORMALS: patient oriented x3, moves all extremities, no focal motor deficits and no sensory deficits noted SENSORIUM/ORIENTATION: Yes alert MENINGEAL SIGNS: Yes no meningeal signs Skin: COMMON NORMALS: no rashes or lesions noted GENERAL SKIN EXAM: no rashes or lesions noted Course Vital Signs: Vital signs: Vital Signs Temperature 98.7 F 08/28/23 21:43 Pulse Rate 105 H 08/28/23 21:43 Respiratory Rate 16 08/28/23 21:43 Blood Pressure 170/83 08/28/23 21:43 Pulse Oximetry 96 08/28/23 21:43 Oxygen Delivery Me thod Room Air 08/28/23 17:42 MDM - Back Pain/Injury Medical Decision Making Patient presents with worsening back pain. Injured it while driving over a bump. No red flag back symptoms reported. Did have history of decompressive surgery last year. CT was obtained of the cervical, thoracic, and lumbar spine that was negative for any acute fractures or other injuries. She states her tramadol was not working, we will switch to [place] and she is to follow-up with primary care. Also will be referred back to orthospine. Will be discharged home at this time with strict return precautions given. Labs Radiology Impressions Cervical Spine CT 08/28/23 19:34 IMPRESSION: Osteopenia with multilevel arthritic changes Lumbar Spine CT 08/28/23 19:34 IMPRESSION: 1. No acute findings. 2. Old compression fractures at L2 and L4 with osteoporosis 3. Spondylolisthesis with pars defects and degenerative disc disease at L5-S1 Thoracic Spine CT 08/28/23 19:34 IMPRESSION: No acute findings. Laboratory Results Urine Color Yellow (Yellow) 08/28/23 19:47 Urine Appearance Slightly cloudy (CLEAR) 08/28/23 19:47 Urine pH 7 (5-7) 08/28/23 19:47 Ur Specific [place] 1.005 (1.005-1.030) 08/28/23 19:47 Urine Protein Neg (Negative) 08/28/23 19:47 Urine Glucose (UA) Norm (Normal) 08/28/23 19:47 Urine Ketones Negative (Negative) 08/28/23 19:47 Urine Blood Neg (Negative) 08/28/23 19:47 Urine Nitrate Negative (Negative) 08/28/23 19:47 Urine Bilirubin Neg (Negative) 08/28/23 19:47 Urine Urobilinogen Neg mg/dL (Negative) 08/28/23 19:47 Ur Leukocyte Esterase 2+ (Negative) H 08/28/23 19:47 Urine RBC 0-4 /hpf (0-2) H 08/28/23 19:47 Urine WBC 5-10 /hpf (0-5) H 08/28/23 19:47 Ur Squamous Epith Cells 0-4 /hpf (0-5) H 08/28/23 19:47 Amorphous Sediment Not Reportable 08/28/23 19:47 Urine Bacteria Trace /hpf (NONE) 08/28/23 19:47 All radiology interpretation(s) finalized by discharge Discharge Plan Discharge Patient Disposition: Home Clinical Impression: Chronic back pain Qualifiers: Back pain location: back pain in unspecified location Back pain laterality: midline Qualified Code(s): M54.9 - Dorsalgia, unspecified Condition: Stable Prescriptions: New hydrocodone-acetaminophen 7.5-325 mg tablet 1 tab PO Q8H PRN (Reason: pain) Qty: 20 0RF Discontinued oxycodone-acetaminophen 7.5-325 mg tablet 1 tab PO Q8H PRN (Reason: pain) Qty: 20 0RF Hold Instructions: Resume on 11/23/21. take the 10mg for a week then go back to 7.5 tramadol 50 mg Tablet 50 - 100 mg PO TID PRN (Reason: Moderate Pain (Scale Score 5-6)) Qty: 20 0RF No Action simethicone [Gas Relief (simethicone)] 125 mg capsule 125 mg PO DAILY PRN (Reason: gas) lisinopril 2.5 mg tablet 2.5 mg PO 0900 sennosides-docusate sodium [Senna-S] 8.6-50 mg tablet 1 tab-cap PO DAILY Qty: 30 0RF lidocaine 5 % adhesive patch,medicated 1 patch topical DAILY Qty: 30 0RF Rx Instructions: leave on most painful area for up to 12 hrs alprazolam [Xanax] 0.25 mg tablet 0.25 mg PO BID PRN (Reason: anxiety) Qty: 20 0RF levothyroxine 88 mcg tablet 88 mcg PO 0800 Qty: 30 0RF sertraline 25 mg tablet 25 mg PO 0900 Qty: 30 0RF Discharge Orders: Discharge ED (Routine); Ordered 08/28/23 Ordered By: Kingston Fields Referrals: Francisco Monsivais MD [Primary Care Provider] - Discharge Diet: Usual diet Discharge Activity: Increase activity as tolerated Patient Instructions: Opioid Safety, Pain Management Activity Restrictions/Additional Instructions: Please stop your tramadol. Take [place] and follow-up with primary care. Also follow-up with orthopedics as instructed. Gentle range of motion exercises as tolerated. Ice and heat for added relief. Return with any new or concerning symptoms you have. Coding Level of Care Code ED Supervisor Vendor Quality for Seth Maza
[2023-08-28] MEDS: ketorolac 60 mg/2 mL INJ IM (19:43)
[2023-08-28] MEDS: dexamethasone 10 mg/mL INJ IM (19:43)
[2023-08-28 20:29] LABS: Bilirubin Urine Neg (Negative); Blood Urine Neg (Negative); Glucose Urine UA Norm (Normal); Ketones Urine Negative (Negative); Nitrate Urine Negative (Negative); Protein Urine Neg (Negative); Specific Gravity, Urine 1.005 (1.005-1.030); Urine Appearance Slightly Cloudy (CLEAR); Urine Color Yellow (Yellow); pH Urine 7 (5-7)
[2023-08-28 20:30] LABS: Add Urine Culture? No; Add Urine Microscopic? YES; Bacteria Urine TRACE /hpf; Leukocyte Esterase Urine 2+ (Negative); RBC Urine 0-4 /hpf (0-2); Squamous Epithelial Cell Urine 0-4 /hpf (0-5); Urobilinogen Urine Neg (Negative)
[2023-08-28] MEDS: HYDROcodone-acetaminophen 7.5-325 mg Tablet 1 TAB PO (21:21)
[2023-08-28 21:43] VITALS: BP 170/83; PULSE 105; RESP 16; TEMP 37.1; O2SAT 96
--- NOTE | 2023-08-30 09:48 | DCPLANNER ---
messaged ortho for er f/u
== END 2023-08-28 21:45 | disposition home or self-care (01) ==
PROVIDERS: Emergency Provider Physician Assistant; PCP Family Medicine
DX: G89.29 Other chronic pain (principal); M54.9 Dorsalgia, unspecified; I10 Essential (primary) hypertension
CPT/HCPCS: 72125; 72128; 72131; 81001; 96372; 99284; J1100; J1885

== ENCOUNTER → 2023-09-04 08:27 | Outpatient (BNVA) | payer MEDICARE, SELFPAY | PROVIDERS: PCP Family Medicine; Visit Provider Orthopaedic Surgery | DX: M54.9 Dorsalgia, unspecified (principal); G89.29 Other chronic pain | CPT/HCPCS: 72072; 72100; 99214 ==

== ENCOUNTER → 2023-09-18 12:42 | Outpatient (BNVA) | payer MEDICARE, SELFPAY | PROVIDERS: PCP Family Medicine; Visit Provider Orthopaedic Surgery | DX: M54.9 Dorsalgia, unspecified (principal) | CPT/HCPCS: 36415; 80053; 81001; 85025; 99214 ==

== ENCOUNTER → 2023-10-09 08:54 | Outpatient (BNVA) | payer MEDICARE, SELFPAY | PROVIDERS: PCP Family Medicine; Visit Provider Family Medicine | DX: Z01.818 Encounter for other preprocedural examination (principal) | CPT/HCPCS: 81003 ==

== ENCOUNTER 2023-10-12 08:15 | Day surgery (SDC) | payer MEDICARE, SELFPAY ==
[2023-10-12] VITALS (11 sets, daily range): BP systolic 87–183; BP diastolic 51–92; PULSE 73–89; RESP 18; TEMP 36.2–36.4; O2SAT 92–100; BMI 23.4
--- NOTE | 2023-10-12 | SC_ITS ---
NOTE: Report was unsigned for reason: Equipment failure. Original Signature date and time was: 10/12/23 @ 1718 EXAMINATION: C-arm FL for Kyphoplasty ORDER DATE: 10/12/2023 8:22 AM REASON FOR EXAM: Surgery COMPARISON: None available. FLUOROSCOPY TIME: 62.4 seconds # OF SPOT FILMS: 2 The dap is 12.01 mGy. FINDINGS: Intraoperative images demonstrate kyphoplasty at approximately T11. Please see intraoperative note for full explanation of findings and the procedure. ELEAZAR
--- NOTE | 2023-10-12 09:09 | P.ANESASSM_ITS ---
Pre-Anesthetic Assessment Height/Weight: Height 1.55 m Weight 56.245 kg Temp Pulse Resp BP Pulse Ox O2 Del Method 97.6 F 89 18 183/92 95 Room Air 10/12/23 08:42 10/12/23 08:42 10/12/23 08:42 10/12/23 08:42 10/12/23 08:42 10/12/23 08:42 Preop Diagnosis: T11 compression fracture Operation Date: 10/12/23 10:40 Proposed Procedures p Kyphoplasty(Not Applicable) - Efraín Segundo DO Last intake: Intake Last Liquid Date 10/11/23 Last Liquid Time 23:30 Last Solid Date 10/11/23 Last Solid Time 23:30 Social No alcohol and No tobacco Exam alert, oriented x 3, clear to auscultation bilaterally and regular rate & rhythm Airway Submandibular: within normal limits Cervical ROM: within normal limits Mallampati: Class II Dentition: false Pulmonary None reported CV/HEM None reported TCC GI Gastroesophageal Reflux Disease dysphagia Anesthetic Plan ASA status: 3 Anesthesia: General Medications/Allergies Home Medications Medication Instructions Recorded Confirmed Last Taken Type lisinopril 2.5 mg tablet 2.5 mg PO 0900 10/07/21 10/12/23 10/11/23 History alprazolam 0.25 mg tablet (Xanax) 0.25 mg PO BID PRN anxiety #20 tabs 10/11/21 10/12/23 10/11/23 Rx TLSO brace #1 ea 09/14/23 10/12/23 Unknown Rx TLSO Brace #1 ea 09/17/23 10/12/23 Unknown Rx anastrozole 1 mg tablet 1 mg PO DAILY 10/09/23 10/12/23 10/11/23 History gabapentin 100 mg capsule 300 mg PO BID 10/09/23 10/12/23 10/11/23 History hydrocodone 5 mg-acetaminophen 325 1 tab PO BID 10/09/23 10/12/23 10/11/23 History mg tablet levothyroxine 125 mcg tablet 125 mcg PO DAILY 10/09/23 10/12/23 10/11/23 History Allergies Allergy/AdvReac Type Severity Reaction Status Date / Time No Known Allergies Allergy Verified 10/12/23 08:34 [facility] Anesthesia Medical History Urolithiasis Obstructing right distal ureteral stone required endoscopic laser lithotripsy September 2021. Transient stent Primary ureteral transitional cell carcinoma Large left distal ureteral mass confirmed via biopsy to be high-grade TCCA. Diagnosed September 2021 Anxiety and depression Hypothyroidism Hypertension Surgical History History of hysterectomy History of cholecystectomy Family History Son Diabetes Father , AT AGE 80 No problems noted. Mother , IN HER 76 MVA (motor vehicle accident) Social History Smoking and tobacco/nicotine status: never used tobacco/nicotine Second hand smoke exposure: No Alcohol intake: never Substance/Drug Use: never Marital status: / Current occupational status: retired Data Anesthesia Cardiac Studies: Echocardiogram 10/07/21
[2023-10-12] MEDS: sodium chloride 0.9% 1,000 ML 30 ML IV (09:35)
[2023-10-12] MEDS: ceFAZolin 2,000 mg SDV 2000 MG IVP (11:22)
--- NOTE | 2023-10-12 11:29 | W.PM.OPSUD ---
Surgery/Procedure H&P Update DATE OF PROCEDURE: October 12, 2023 DATE H&P PERFORMED: 10/09/23 PREOP DIAGNOSIS: T11 compression fracture PLANNED PROCEDURE: Operation Date: 10/12/23 10:40 Proposed Procedures p Kyphoplasty(Not Applicable) - Efraín Segundo DO
[2023-10-12] MEDS: lidocaine-epi 2% PF 1:200,000 20 mL SDV 10 ML XX (11:55)
--- NOTE | 2023-10-12 12:27 | PM.OP ---
Operative Report Date of procedure: October 12, 2023 Pre-op diagnosis: T11 compression fracture osteoporotic wedge traumatic Post-op diagnosis: same Procedure done: T11 kyphoplasty Surgeon: Efraín Segundo DO Estimated blood loss (mL): 5 Procedure: T11 kyphoplasty Patient brought the op see everyone's he was placed in the prone position. All appear well-padded. Patient's prepped draped also fashion. Skin incision made over the T11 level on the left pedicle. This confirmed under AP fluoroscopy. The awl was then inserted through the pedicle. This confirmed on AP and lateral fluoroscopy. The drill was then inserted followed by the balloon and balloon was inflated. And then the cement was injected. Cement was in good position. Tubes were pulled. AP lateral fluoroscopy ensured that the cement was in good position. Wounds irrigated closed with nylon suture sterile dressings were applied and patient was transferred to the PACU in stable condition.
[2023-10-12] MEDS: fentaNYL 50 mcg/mL INJ 2mL IVP (12:30)
[2023-10-12] MEDS: HYDROcodone-acetaminophen 5-325 mg Tablet 1 TAB PO (13:20)
== END 2023-10-12 13:45 | disposition home or self-care (01) ==
PROVIDERS: PCP Family Medicine; Visit Provider Orthopaedic Surgery
PROC: (CPT 22513; principal; 2023-10-12 10:30)
DX: S22.080A Wedge compression fracture of T11-T12 vertebra, initial encounter for closed fracture (principal); X58.XXXA Exposure to other specified factors, initial encounter; K21.9 Gastro-esophageal reflux disease without esophagitis; E03.9 Hypothyroidism, unspecified; I10 Essential (primary) hypertension
CPT/HCPCS: 22513; 76000; J0690; J1100; J2405; J2704; J3010; J3490; J7030

== ENCOUNTER → 2023-10-30 14:15 | Outpatient (BNVA) | payer MEDICARE, SELFPAY | PROVIDERS: PCP Family Medicine; Visit Provider Orthopaedic Surgery | DX: Z98.890 Other specified postprocedural states (principal) | CPT/HCPCS: 99024 ==

== ENCOUNTER → 2023-11-29 08:17 | Outpatient (BNVA) | payer MEDICARE, SELFPAY | PROVIDERS: PCP Family Medicine; Visit Provider Orthopaedic Surgery | DX: S22.000A Wedge compression fracture of unspecified thoracic vertebra, initial encounter for closed fracture (principal); X58.XXXA Exposure to other specified factors, initial encounter | CPT/HCPCS: 72072; 99213 ==

== ENCOUNTER 2023-12-10 11:54 | Outpatient (RCR) | payer MEDICARE, SELFPAY | END 2023-12-27 23:59 | disposition home or self-care (01) | LOC: SPT 11:54 | PROVIDERS: Visit Provider Orthopaedic Surgery | DX: M54.6 Pain in thoracic spine (principal); G89.29 Other chronic pain | CPT/HCPCS: 97161 ==

== ENCOUNTER 2023-12-25 19:09 | Emergency (ER) | payer MEDICARE, SELFPAY ==
[2023-12-25 19:51] VITALS: BP 168/79; PULSE 110; RESP 16; TEMP 36.7; O2SAT 96
--- NOTE | 2023-12-25 22:28 | XRR_ITS ---
PROCEDURE INFORMATION: Exam: XR Lumbosacral Spine Exam date and time: 12/25/2023 10:42 PM Age: 88 years old Clinical indication: Lumbago with sciatica; Bilateral; Prior surgery; Surgery date: 6+ months; Surgery type: PT is not sure on what levels SX was done; Additional info: Fall x1 week/hx of surgery TECHNIQUE: Imaging protocol: Radiologic exam of the lumbosacral spine. Views: 2 or 3 views. COMPARISON: MR lumbar spine wo con* [id number] 09/14/2023 11:01 AM FINDINGS: Bones/joints: Mild curvature of the lumbar spine convex to the left. Mild degenerative disease of bilateral sacroiliac joints. Post L4 and T11 vertebroplasties. Moderate compression deformity of the L2 vertebral body, chronic. Grade 1 spondylolisthesis of L5 over S1 due to bilateral pars defects at L5. Mild compression deformity of the T10 vertebral body, new when compared to 09/04/2023. Soft tissues: Unremarkable. Vasculature: Vascular calcifications. XR/XR lumbar spine 2-3V* [id number] IMPRESSION: New compression deformity of the T10 vertebral body to be correlated with point tenderness.
--- NOTE | 2023-12-25 22:28 | XRR_ITS ---
PROCEDURE INFORMATION: Exam: XR Thoracic Spine Exam date and time: 12/25/2023 10:47 PM Age: 88 years old Clinical indication: Pain in thoracic spine; Other: Severe back pain, lrom; Prior surgery; Surgery date: 6+ months; Surgery type: Back SX, she is not sure what levels; Additional info: Fall x1 week/hx of back surgery TECHNIQUE: Imaging protocol: Radiologic exam of the thoracic spine. Views: 3 views. COMPARISON: CR (PELVIS, ) 12/25/2023 10:42 PM FINDINGS: Bones/joints: Demineralization of the visualized bones, limiting sensitivity for nondisplaced fracture post T11 vertebroplasty with similar cement anterior to the vertebral body. Soft tissues: Unremarkable. XR/XR thoracic spine 3V* [id number] IMPRESSION: No displaced fracture.
--- NOTE | 2023-12-25 22:50 | ED_ITS ---
HPI - Back Pain/Injury General: Chief Complaint: Back Pain/Injury Stated Complaint: Back Pain Time Seen by Provider: 12/25/23 21:50 Source: patient Mode of arrival: ambulatory Limitations: no limitations History of Present Illness: Patient is an 88-year-old female who presents to the emergency department complaining of thoracic and lumbar back pain for the past week. She states she fell in the bathroom about a week ago, has had increasing pain since. She notes that she sees Dr. Segundo for her pain, and and takes hydrocodone daily and this has not been helping. Denies any bowel or bladder incontinence, nausea vomiting, or distal paralysis or paresthesias. Reports that the pain is worsened with any movement, she is noted to be in position at this time in the emergency department. Heart rate elevated, likely secondary to pain. States that she has a history of 2 decompression surgeries. She does not see pain control at this time. She is not reporting any urinary symptoms. MD elicited complaint: back pain Pertinent past history: prior back pain and other (Fell 1 week ago) Onset (ago): week(s) Timing: constant and progressively worsening Severity: severe Similar Symptoms Previously: Yes Location: lumbar spine and thoracic spine Radiation: none Exacerbating factors: none Relieving factors: none Context: fall Associated symptoms: Deny abdominal pain, chills, fecal incontinence, fever(s), nausea or vomiting Related Data Home Medications Medication Instructions Recorded Confirmed lisinopril 2.5 mg tablet 2.5 mg PO 0900 10/07/21 11/29/23 anastrozole 1 mg tablet 1 mg PO DAILY 10/09/23 11/29/23 gabapentin 100 mg capsule 300 mg PO BID 10/09/23 11/29/23 levothyroxine 125 mcg tablet 125 mcg PO DAILY 10/09/23 11/29/23 Previous Rx's Medication Instructions Recorded TLSO brace #1 ea 09/14/23 TLSO Brace #1 ea 09/17/23 hydrocodone 5 mg-acetaminophen 325 1 - 2 tab PO .Q4-6H PRN pain 7 10/19/23 mg tablet days #40 tabs Allergies Allergy/AdvReac Type Severity Reaction Status Date / Time No Known Allergies Allergy Verified 12/25/23 19:56 Review of Systems General: Reports: 10 or more systems reviewed and unremarkable except in HPI and below Const: Reports: other (Fall); Denies: fever(s) or chills Card: Denies: chest pain Resp: Denies: dyspnea or productive cough GI: Denies: abdominal pain, nausea, vomiting, diarrhea or fecal incontinence : Denies: flank pain or urinary incontinence Musc: Reports: back pain; Denies: neck pain, extremity pain, extremity swelling, joint pain, joint swelling, joint redness, joint warmth, limited range of motion or muscle weakness Skin/Breast: Denies: rash Neuro: Denies: headache(s), numbness in extremities or weakness in extremities PFSH ED PFSH: Medical History Urolithiasis Obstructing right distal ureteral stone required endoscopic laser lithotripsy September 2021. Transient stent Primary ureteral transitional cell carcinoma Large left distal ureteral mass confirmed via biopsy to be high-grade TCCA. Diagnosed September 2021 Anxiety and depression Hypothyroidism Hypertension Surgical History History of hysterectomy History of cholecystectomy Family History Son Diabetes Father , AT AGE 80 No problems noted. Mother , IN HER 76 MVA (motor vehicle accident) Social History Smoking and tobacco/nicotine status: never used tobacco/nicotine Second hand smoke exposure: No Alcohol intake: never Substance/Drug Use: never Marital status: / Current occupational status: retired Physical Exam Const: COMMON NORMALS: patient oriented x3, no limitations, healthy appearing, alert and well nourished OTHER: Patient in a position in bed, mild acute distress from the pain HENMT: COMMON NORMALS: normocephalic and atraumatic HEAD & SCALP: normocephalic and atraumatic Neck/C-Spine: COMMON NORMALS: full ROM, supple and no meningeal signs Resp: COMMON NORMALS: normal respiratory effort, No use of accessory muscles and clear to auscultation bilaterally AUSCULTATION: clear to auscultation bilaterally Cardio: COMMON NORMALS: regular rhythm RATE: tachycardic RHYTHM: regular rhythm Back/Pelvis: OTHER: Kyphosis of the spine noted. No significant reproducible tenderness to palpation of the cervical, thoracic, or lumbar spine. No signs of trauma, bruising, or injuries otherwise. Straight leg raise testing negative. Extremity: COMMON NORMALS: normal to inspection, full ROM, capillary refill normal, no joint enlargement and no clubbing, cyanosis or edema Neuro: COMMON NORMALS: patient oriented x3, moves all extremities, no focal motor deficits, no sensory deficits noted and deep tendon reflexes 2+ bilaterally SENSORIUM/ORIENTATION: Yes alert MENINGEAL SIGNS: Yes no meningeal signs Skin: COMMON NORMALS: no rashes or lesions noted GENERAL SKIN EXAM: no rashes or lesions noted Course Vital Signs: Vital signs: Vital Signs Temperature 98.1 F 12/25/23 19:51 Pulse Rate 110 H 12/25/23 19:51 Respiratory Rate 18 12/25/23 22:54 Blood Pressure 168/79 12/25/23 19:51 Pulse Oximetry 95 12/25/23 22:54 Oxygen Delivery Me thod Room Air 12/25/23 19:51 MDM - Back Pain/Injury Medical Decision Making Patient has a history of chronic back issues and a couple of decompression ghada geries. Heart rate has been somewhat elevated here, likely secondary to the pain. She had no other symptoms but back pain to report. She stated that she fell last week in the bathroom, pain had been steadily worsening since. She takes Nelson daily, stating this was not helping as much. A lumbar spine x-ray today showed new compression deformity of T10, initial exam she was not exquisitely tender here but upon further pinpoint palpation, she was more tender here than the rest of the spine. She already follows with Ortho/spine, she is encouraged to call them in the morning to get an appointment. She is already on narcotic pain medication and will continue taking this. In addition she is also reporting quite a bit of relief after receiving steroid shot and morphine here in the emergency department. She is comfortable with discharge home at this time, return precautions are given. Labs Radiology Impressions Lumbar Spine X-Ray 12/25/23 22:28 IMPRESSION: New compression deformity of the T10 vertebral body to be correlated with point tenderness. Thoracic Spine X-Ray 12/25/23 22:28 IMPRESSION: No displaced fracture. All radiology interpretation(s) finalized by discharge Discharge Plan Discharge Patient Disposition: Home Clinical Impression: Chronic back pain Qualifiers: Back pain location: low back pain Back pain laterality: midline Sciatica presence: unspecified whether sciatica present Qualified Code(s): M54.50 - Low back pain, unspecified Compression fracture of T1 vertebra Qualifiers: Encounter type: initial encounter Qualified Code(s): S22.010A - Wedge compression fracture of first thoracic vertebra, initial encounter for closed fracture Condition: Stable Prescriptions: No Action anastrozole 1 mg tablet 1 mg PO DAILY levothyroxine 125 mcg tablet 125 mcg PO DAILY gabapentin 100 mg capsule 300 mg PO BID (DME) TLSO brace See Rx Instructions .Route .MEDSUPPLY Qty: 1 0RF Rx Instructions: As directed (DME) TLSO Brace See Rx Instructions .Route .MEDSUPPLY Qty: 1 0RF Rx Instructions: As directed hydrocodone-acetaminophen 5-325 mg tablet 1 - 2 tab PO .Q4-6H PRN (Reason: pain) 7 Days Qty: 40 0RF lisinopril 2.5 mg tablet 2.5 mg PO 0900 Discharge Orders: Discharge ED (Routine); Ordered 12/25/23 Ordered By: Kingston Fields Referrals: Francisco Monsivais MD [Primary Care Provider] - Patient Instructions: Vertebral Compression Fracture (ED), Opioid Safety, Pain Management Activity Restrictions/Additional Instructions: Continue taking your Nelson and follow-up with Ortho/spine as discussed. Lay on a heat pack for added relief. Gentle range of motion exercises and return with any new or worsening. Coding Level of Care Code ED Flight/Transport Nurse for Seth Maza
[2023-12-25] MEDS: dexamethasone 10 mg/mL INJ 8 MG IM (22:53)
[2023-12-25 22:54] VITALS: RESP 18; O2SAT 95
[2023-12-25] MEDS: morphine 4 mg/mL SDV 1 mL IM (22:54)
== END 2023-12-26 00:11 | disposition home or self-care (01) ==
PROVIDERS: Emergency Provider Physician Assistant; PCP Family Medicine
DX: S22.010A Wedge compression fracture of first thoracic vertebra, initial encounter for closed fracture (principal); M54.50 Low back pain, unspecified; I10 Essential (primary) hypertension; W19.XXXA Unspecified fall, initial encounter
CPT/HCPCS: 72072; 72100; 96372; 99284; J1100; J2270

== ENCOUNTER → 2024-01-01 15:07 | Outpatient (BNVA) | payer MEDICARE, SELFPAY | PROVIDERS: PCP Family Medicine; Visit Provider Orthopaedic Surgery | DX: M54.50 Low back pain, unspecified (principal); G89.29 Other chronic pain | CPT/HCPCS: 72100; 99214 ==

== ENCOUNTER 2024-01-17 12:46 | Outpatient (CLI) | payer MEDICARE, SELFPAY ==
--- NOTE | 2024-01-17 13:00 | MR_ITS ---
WS: [id number] MRI LUMBAR SPINE NONCONTRAST HISTORY: 09/14/2023 COMPARISON: None available. TECHNIQUE: Sagittal and axial multisequence imaging is submitted. Grade 2 anterolisthesis of L5 by 14 mm. Slight progression of the anterolisthesis since 09/14/2023. 2 mm retrolisthesis of L2. Concave vertebral body fractures at L2 and L4 are similar to the prior study . No new or acute edema. Prior kyphoplasty at T11. Small amount of marrow edema at T10 and T11. This was described within the thoracic report. Disc spaces are narrowed and desiccated throughout. Conus terminates normally at L1-2 disc level. L1-L2: Annular disc bulging with mild foraminal stenosis. L2-L3: Mild annular disc bulging with ligamentum flavum and facet arthritis. Mild bilateral subarticu lar recess and foraminal stenosis. L3-L4: Diffuse annular disc bulging with ligamentum flavum and facet arthritis. Moderate central with bilateral subarticular recess and foraminal stenosis. L4-L5: Mild annular disc bulging. Mild central and bilateral foraminal stenosis. L5-S1: Deformity of the ventral thecal sac due to the anterolisthesis of L5. Severe central and bilat eral foraminal stenosis. RIGHT renal cyst. LEFT kidney not identified. MR/MR lumbar spine wo con* [id number] IMPRESSION: 1. No acute lumbar spine fractures. 2. Prior fractures at L2 and L4 are unchanged. 3. Grade 2 anterolisthesis of L5 with mild progression since the prior study b y approximately 3 mm. 4. L5-S1: Severe central and bilateral foraminal stenosis. 5. L3-4: Moderate central with bilateral subarticular recess and foraminal tiff nosis. 6. L4-5: Mild central and bilateral foraminal stenosis.
--- NOTE | 2024-01-17 13:45 | MR_ITS ---
WS: [id number] MRI THORACIC SPINE noncontrast HISTORY: thoracic pain, progressive pain. COMPARISON: None available. TECHNIQUE: Multiplanar sequences are performed in sagittal and axial planes. Marked increase in thoracic kyphosis. Kyphosis does appear to have progressed since the prior study. Kyphoplasty within T11. Small amount of the methylmethacrylate is extended into the T10-11 disc level . There is mild anterior wedging of T10 which was not present on the prior study. There is a small am ount of edema along the inferior endplate of T10 suggesting acute to subacute fracture. Remote L2 com pression fracture. Very slight retropulsion of the T10 and T11 endplates without contact on the cord. No additional frac tures. Facet joint arthropathy throughout the thoracic spine. No high-grade central or foraminal sten osis. Numerous RIGHT renal cysts. LEFT kidney is not identified and may have been removed. MR/MR thoracic spin wo con* [id number] IMPRESSION: 1. Mild progression of thoracic kyphosis since 09/14/2023. 2. Status post kyphoplasty of T11. 3. New compression fracture at T10 by approximately 20%. There is a small amou nt of marrow edema within the T10 vertebral body suggesting acute to subacute f racture. 4. Mixed signal L2 vertebral body is unchanged.
== END 2024-01-17 12:47 | disposition home or self-care (01) ==
LOC: RAD 12:47
PROVIDERS: PCP Family Medicine; Visit Provider Orthopaedic Surgery
DX: S22.070A Wedge compression fracture of T9-T10 vertebra, initial encounter for closed fracture (principal); M40.204 Unspecified kyphosis, thoracic region; Z98.890 Other specified postprocedural states; M46.94 Unspecified inflammatory spondylopathy, thoracic region; M51.360 Other intervertebral disc degeneration, lumbar region with discogenic back pain only; M43.16 Spondylolisthesis, lumbar region; M99.63 Osseous and subluxation stenosis of intervertebral foramina of lumbar region; M48.061 Spinal stenosis, lumbar region without neurogenic claudication; X58.XXXA Exposure to other specified factors, initial encounter
CPT/HCPCS: 72146; 72148; 99214

== ENCOUNTER → 2024-01-29 12:56 | Outpatient (BNVA) | payer MEDICARE, SELFPAY | PROVIDERS: PCP Family Medicine; Visit Provider Family Medicine | DX: Z01.818 Encounter for other preprocedural examination (principal) | CPT/HCPCS: 80053; 81003; 85025; 87086 ==

== ENCOUNTER 2024-02-04 05:29 | Day surgery (SDC) | payer MEDICARE, SELFPAY ==
[2024-02-04] VITALS (10 sets, daily range): BP systolic 111–185; BP diastolic 63–92; PULSE 75–89; RESP 14–18; TEMP 36.2–36.3; O2SAT 96–100; BMI 22.3
--- NOTE | 2024-02-04 05:39 | SC_ITS ---
WS: [id number] Exam: C-arm FL for Kyphoplasty Date/Time of Exam: 02/04/2024 5:39 AM Reason For Exam: Surgery Images obtained for intraoperative purposes.
--- NOTE | 2024-02-04 06:39 | W.PM.OPSUD ---
Surgery/Procedure H&P Update DATE OF PROCEDURE: February 04, 2024 DATE H&P PERFORMED: 01/29/24 H&P UPDATE INFORMATION: I have reviewed H&P completed within last 30 days, I have examined patient prior to procedure and No changes to prior documentation PREOP DIAGNOSIS: T10 wedge osteoporotic traumatic compression fracture PLANNED PROCEDURE: Operation Date: 02/04/24 07:00 Proposed Procedures p Kyphoplasty(Not Applicable) - Efraín Segundo DO
--- NOTE | 2024-02-04 06:49 | ANES.PREANE2 ---
Pre-Anesthetic Assessment Height/Weight: Height 5 ft 1 in Weight 118 lb Temp Pulse Resp BP Pulse Ox O2 Del Method 97.3 F L 89 18 185/92 96 Room Air 02/04/24 06:08 02/04/24 06:08 02/04/24 06:08 02/04/24 06:08 02/04/24 06:08 02/04/24 06:10 Preop Diagnosis: T10 wedge osteoporotic traumatic compression fracture Operation Date: 02/04/24 07:00 Proposed Procedures p Kyphoplasty(Not Applicable) - Efraín Segundo, DO Was Beta Gavino taken within 24 hours: N/A Was Clonidine taken within 24 hours: N/A Last intake: Intake Last Liquid Date 02/03/24 Last Liquid Time 22:00 Last Solid Date 02/03/24 Last Solid Time 18:30 Social No alcohol and No tobacco Exam alert, oriented x 3, clear to auscultation bilaterally and regular rate & rhythm Airway Submandibular: within normal limits Cervical ROM: within normal limits Mallampati: Class II Dentition: other (Edentulous) Anesthetic Plan ASA status: 3 Anesthesia: General Other: Patient is reportedly slow to wake up from anesthesia NPO since yesterday History of hypertension on lisinopril. Preop BP 185/92 Recent history of cancer, s/p left nephrectomy. Patient is currently has breast cancer Patient is able to perform ADLs Labs 01/29/2024 reviewed acceptable for procedure EKG sinus rhythm Plan for GETA Medications/Allergies Home Medications Medication Instructions Recorded Confirmed Last Taken Type lisinopril 2.5 mg tablet 2.5 mg PO 0900 10/07/21 01/29/24 10/11/23 History TLSO brace #1 ea 09/14/23 01/29/24 Unknown Rx TLSO Brace #1 ea 09/17/23 01/29/24 Unknown Rx anastrozole 1 mg tablet 1 mg PO DAILY 10/09/23 01/29/24 10/11/23 History gabapentin 100 mg capsule 300 mg PO BID 10/09/23 01/29/24 10/11/23 History levothyroxine 125 mcg tablet 125 mcg PO DAILY 10/09/23 01/29/24 10/11/23 History hydrocodone 5 mg-acetaminophen 325 1 - 2 tab PO .Q4-6H PRN pain 7 10/19/23 01/29/24 02/04/24 Rx mg tablet days #40 tabs sulfamethoxazole 800 1 tab PO BID 5 days #10 tabs 01/30/24 01/31/24 01/31/24 Rx mg-trimethoprim 160 mg tablet (Bactrim DS) Allergies Allergy/AdvReac Type Severity Reaction Status Date / Time No Known Allergies Allergy Verified 01/31/24 13:12 [facility] Anesthesia Medical History Urolithiasis Obstructing right distal ureteral stone required endoscopic laser lithotripsy September 2021. Transient stent Primary ureteral transitional cell carcinoma Large left distal ureteral mass confirmed via biopsy to be high-grade TCCA. Diagnosed September 2021 Anxiety and depression Hypothyroidism Hypertension Surgical History History of hysterectomy History of cholecystectomy Family History Son Diabetes Father , AT AGE 80 No problems noted. Mother , IN HER 76 MVA (motor vehicle accident) Social History Smoking and tobacco/nicotine status: never used tobacco/nicotine Second hand smoke exposure: No Alcohol intake: never Substance/Drug Use: never Marital status: / Current occupational status: retired Data Anesthesia Cardiac Studies: Echocardiogram 10/07/21
[2024-02-04] MEDS: sodium chloride 0.9% 1,000 ML 30 ML IV (06:57)
[2024-02-04] MEDS: ceFAZolin 2,000 mg SDV 2000 MG IVP (07:00)
[2024-02-04] MEDS: lidocaine-epi 1% 20 mL INJ INJECTION (07:25)
--- NOTE | 2024-02-04 07:47 | PM.OP ---
Operative Report Date of procedure: February 04, 2024 Pre-op diagnosis: T10 wedge osteoporotic traumatic compression fracture Post-op diagnosis: same Procedure done: T10 kyphoplasty Surgeon: Efraín Segundo DO Procedure: T10 kyphoplasty Patient brought the op suite after an Gonasi was placed in the prone position. All areas impingement well-padded. Patient's prepped draped normal sterile fashion. Biplanar fluoroscopy was brought in. The T10 levels identified. Skin incisions made over the left pedicle. The awl was inserted through the pedicle using AP lateral fluoroscopy. The drill was inserted followed by the balloon. Balloon was inflated and deflated. The cement was then injected somewhat cement leaked out anteriorly however most of it is in the prone position inside the vertebrae. AP lateral fluoroscopy ensured that the cement was in good position. Wounds were irrigated nylon stitch was put used to close the skin. Wound was sterile dressing was placed. And patient was transferred the PACU in stable condition.
[2024-02-04] MEDS: HYDROcodone-acetaminophen 5-325 mg Tablet 1 TAB PO (08:46)
--- NOTE | 2024-02-04 09:28 | ANE.PACU2 ---
Inpatient post-anesthesia follow up: Airway intact: Yes Vital signs: Temperature 97.1 F Pulse Rate 76 Respiratory Rate 17 Blood Pressure 143/79 Pulse Oximetry 98 Oxygen Delivery Me thod Room Air Oxygen Flow Rate Fraction of Inspir ed Oxygen Hydration adequate: Yes Nausea and vomiting: No Pain level: 1 Mental status: Baseline
== END 2024-02-04 09:28 | disposition home or self-care (01) ==
PROVIDERS: PCP Family Medicine; Visit Provider Orthopaedic Surgery
PROC: (CPT 22513; principal; 2024-02-04 07:00)
DX: S22.070A Wedge compression fracture of T9-T10 vertebra, initial encounter for closed fracture (principal); X58.XXXA Exposure to other specified factors, initial encounter; I10 Essential (primary) hypertension; C50.919 Malignant neoplasm of unspecified site of unspecified female breast; E03.9 Hypothyroidism, unspecified
CPT/HCPCS: 22513; 76000; J0690; J1100; J2371; J2405; J2704; J3010; J3490; J7030

== ENCOUNTER → 2024-03-04 12:39 | Outpatient (BNVA) | payer MEDICARE, SELFPAY | PROVIDERS: PCP Family Medicine; Visit Provider Orthopaedic Surgery | DX: Z48.89 Encounter for other specified surgical aftercare (principal); S22.070A Wedge compression fracture of T9-T10 vertebra, initial encounter for closed fracture; X58.XXXA Exposure to other specified factors, initial encounter | CPT/HCPCS: 72072; 99213 ==

== ENCOUNTER 2024-03-25 14:41 | Outpatient (RCR) | payer MEDICARE, SELFPAY | END 2024-03-28 23:59 | disposition home or self-care (01) | LOC: SPT 14:41 | PROVIDERS: PCP Family Medicine; Visit Provider Orthopaedic Surgery | DX: M54.6 Pain in thoracic spine (principal); G89.29 Other chronic pain | CPT/HCPCS: 97161 ==

== ENCOUNTER → 2024-04-15 10:36 | Outpatient (BNVA) | payer MEDICARE, SELFPAY | PROVIDERS: PCP Family Medicine; Visit Provider Orthopaedic Surgery | DX: Z09 Encounter for follow-up examination after completed treatment for conditions other than malignant neoplasm (principal) | CPT/HCPCS: 99213 ==

== ENCOUNTER 2024-04-26 06:30 | Outpatient (RCR) | payer MEDICARE, SELFPAY | END 2024-05-26 23:59 | disposition home or self-care (01) | LOC: SPT 06:30 | PROVIDERS: PCP Family Medicine; Visit Provider Orthopaedic Surgery | DX: M54.6 Pain in thoracic spine (principal); G89.29 Other chronic pain | CPT/HCPCS: 97110; 97116; 97164 ==

== ENCOUNTER 2024-04-26 23:09 | Emergency (ER) | payer MEDICARE, SELFPAY ==
[2024-04-26 23:13] VITALS: BP 229/107; PULSE 123; RESP 18; TEMP 36.4; O2SAT 97; BMI 25.0
--- NOTE | 2024-04-26 23:33 | CTR_ITS ---
PROCEDURE INFORMATION: Exam: CT Head Without Contrast Exam date and time: 04/26/2024 11:38 PM Age: 88 years old Clinical indication: Pain; Other: Vomiting/hypertension; Headache; SANCHEZ with vomiting and hypertension; Additional info: Headache hypertension vomiting TECHNIQUE: Imaging protocol: Computed tomography of the head without contrast. Radiation optimization: All CT scans at this facility use at least one of these dose optimization techniques: automated exposure control; mA and/or kV adjustment per patient size (includes targeted exams where dose is matched to clinical indication); or iterative reconstruction. COMPARISON: CT head wo con* [id number] 03/10/2022 12:23 AM RADIATION DOSE METRICS: Total DLP (mGy-cm): 1300.58 FINDINGS: Brain: Similar severe cortical volume loss. No hemorrhage. Periventricular and subcortical white matter hypodensities likely represent chronic small vessel ischemic changes. No mass effect. Vascular calcifications along the carotid siphons. Cerebral ventricles: Enlargement likely related to volume loss, similar to prior. Paranasal sinuses: Visualized sinuses are unremarkable. No fluid levels. Mastoid air cells: Right mastoid effusion. Orbital cavities: Bilateral lens replacements. Bones: Unremarkable. No acute fracture. Soft tissues: Unremarkable. CT/CT head wo con* [id number] IMPRESSION: 1. No acute intracranial abnormality. 2. Right mastoid effusion. 3. Chronic/age-related changes as above.
--- NOTE | 2024-04-26 23:54 | XRR_ITS ---
PROCEDURE INFORMATION: Exam: XR Chest Exam date and time: 04/26/2024 11:55 PM Age: 88 years old Clinical indication: Chest pressure; Prior surgery; Surgery date: 6+ months; Surgery type: Kyphoplasty; C/O chest pain with hypertension; Additional info: HTN, cp TECHNIQUE: Imaging protocol: Radiologic exam of the chest. Views: 1 view. COMPARISON: CR XR chest 2V* [id number] 08/10/2023 10:05 AM FINDINGS: Limitations: Patient is rotated to the left, limiting assessment. Lungs: Low lung volumes. Bibasilar atelectasis/scarring. No definite focal consolidation within the limitations of the examination. Pleural spaces: Unremarkable. No pleural effusion. No pneumothorax. Heart/Mediastinum: Unremarkable. No cardiomegaly. Vasculature: Tortuous calcified thoracic aorta. Bones/joints: Vertebral augmentation at several levels. Degenerative changes of the spine. XR/XR chest 1V portable [id number] IMPRESSION: No definite acute cardiopulmonary findings within limitations of the examination.
--- NOTE | 2024-04-26 23:54 | ECG_ITS ---
[facility] Date: 2024-04-27 Pat Name: Brynn Israel Department: Room: Gender: Female Internal Sales: : 1935 Requested By: Dutch Grant Order Number: [id number] Harris MD: Zachary Amaya M.D. Measurements Intervals [place] Rate: 61 P: 26 [place]: 165 QRS: 22 QRSD: 88 T: 62 QT: 407 QTc: 412 Interpretive Statements SINUS RHYTHM Compared to ECG 08/07/2023 10:14:19 No significant changes Electronically Signed On 04-27-2024 12:06:45 SPRAYER OPERATOR by Zachary Amaya M.D. [email or web address]
[2024-04-27] MEDS: metoprolol tartrate 1 mg/1 mL SDV 5 mL 5 MG IVP (00:01)
[2024-04-27 00:06] VITALS: BP 187/78; PULSE 66; RESP 16; O2SAT 94
[2024-04-27 00:06] LABS: INR 0.86 (0.8-1.2)
[2024-04-27 00:07] LABS: Partial Thromboplastin Time 26.9 SECONDS (23.9-36.7)
[2024-04-27 00:12] LABS: Troponin(5th) Baseline 8 ng/L (0-10)
[2024-04-27 00:21] LABS: Alanine Aminotransferase 11 U/L (0-33); Albumin Level 4.1 g/dL (3.5-5.2); Alkaline Phosphatase 122 U/L (35-105); Anion Gap 17.2 (5-19); Aspartate Amino Transferase 16 U/L (0-32); Blood Urea Nitrogen 18 mg/dL (8-23); Calcium 10.1 mg/dL (8.5-10.5); Carbon Dioxide 22 mmol/L (22-29); Chloride 100 mmol/L (98-107); Creatinine Clr Calc Pharmacy 34.4624; Globulin 3.7 g/dL (1.3-4.6); Glucose 202 mg/dL (65-115); NT Pro B Type Natriuretic Pept 1234 pg/mL (0-450); Osmolality Calculated 288 mOsm/kg (285-295); Potassium 4.2 mmol/L (3.5-5.1); Sodium 135 mmol/L (136-145); Total Bilirubin 0.4 mg/dL (0.15-1.2); Total Protein 7.8 g/dL (6.6-8.7)
[2024-04-27 00:25] VITALS: BP 181/65; PULSE 60; RESP 16; O2SAT 95
[2024-04-27 00:31] VITALS: BP 181/70; PULSE 62; RESP 16; O2SAT 95
--- NOTE | 2024-04-27 00:31 | W.ED.HA ---
HPI - Headache General: Chief Complaint: Headache Stated Complaint: Head,Back Pain, Weakness Time Seen by Provider: 04/26/24 23:35 History of Present Illness: 88-year-old female who began to get a headache around 530 last evening. She took some Tylenol, with improvement from 10 out of 10 to 5 out of 10 with her headache. She was somewhat dizzy, and this is resolved. No visual changes. No significant weakness, particularly focal weakness. No language deficits. Her blood pressure was in the 230s systolic at home, so the came to the emergency room. She did vomit once. Related Data Home Medications ?Medication ?Instructions ?Recorded ?Confirmed lisinopril 2.5 mg tablet 2.5 mg PO 0900 10/07/21 04/15/24 anastrozole 1 mg tablet 1 mg PO DAILY 10/09/23 04/15/24 gabapentin 100 mg capsule 300 mg PO BID 10/09/23 04/15/24 levothyroxine 125 mcg tablet 125 mcg PO DAILY 10/09/23 04/15/24 Previous Rx's ?Medication ?Instructions ?Recorded TLSO brace #1 ea 09/14/23 TLSO Brace #1 ea 09/17/23 sulfamethoxazole 800 1 tab PO BID 5 days #10 tabs 01/30/24 mg-trimethoprim 160 mg tablet (Bactrim DS) hydrocodone 5 mg-acetaminophen 325 1 - 2 tab PO .Q4-6H #40 tabs 02/04/24 mg tablet amlodipine 5 mg tablet 5 mg PO DAILY #30 tabs 04/27/24 Allergies Allergy/AdvReac Type Severity Reaction Status Date / Time No Known Allergies Allergy Verified 04/15/24 10:53 [facility] ED PFS: Medical History Urolithiasis Obstructing right distal ureteral stone required endoscopic laser lithotripsy September 2021. Transient stent Primary ureteral transitional cell carcinoma Large left distal ureteral mass confirmed via biopsy to be high-grade TCCA. Diagnosed September 2021 Anxiety and depression Hypothyroidism Hypertension Surgical History History of hysterectomy History of cholecystectomy Family History Son Diabetes Father , AT AGE 80 No problems noted. Mother , IN HER 76 MVA (motor vehicle accident) Social History Smoking and tobacco/nicotine status: unknown if used tobacco/nicotine Second hand smoke exposure: No Alcohol intake: never Substance/Drug Use: never Marital status: / Current occupational status: retired Physical Exam Const: COMMON NORMALS: no acute distress GENERAL APPEARANCE: cooperative and frail appearing; not ill appearing HENMT: COMMON NORMALS: normocephalic, atraumatic and Normal external nose present HEAD & SCALP: normocephalic and atraumatic FACE & SINUS: normal facial exam and face symmetric NOSE: Normal external nose present Eye: COMMON NORMALS: Equal, round and reactive pupils present and EOMs intact bilaterally PUPIL: Yes Equal, round and reactive pupils present Neck/C-Spine: GENERAL: Yes trachea midline Chest: CHEST: Yes Symmetrical chest wall rise Resp: COMMON NORMALS: normal respiratory effort, No retractions, No use of accessory muscles and clear to auscultation bilaterally AUSCULTATION: clear to auscultation bilaterally Cardio: COMMON NORMALS: regular rate and regular rhythm RATE: regular rate RHYTHM: regular rhythm GI: COMMON NORMALS: Normal to inspection, nondistended, normoactive bowel sounds present Extremity: COMMON NORMALS: no pedal edema Neuro: SIMONE COMA SCALE: document GCS findings Simone coma scale eye opening: Spontaneous Boring coma scale verbal response: Orientated Boring coma scale motor response: Obey commands Simone coma scale total score: 15 SENSORY EXAM: Yes extremities (intact) Psych: COMMON NORMALS: speech normal SPEECH: Yes normal speech Skin: COMMON NORMALS: no rashes or lesions noted GENERAL SKIN EXAM: no rashes or lesions noted Course Vital Signs: Vital signs: Vital Signs Temperature 97.5 F L 04/26/24 23:13 Pulse Rate 64 04/27/24 01:42 Respiratory Rate 18 04/27/24 01:42 Blood Pressure 186/67 04/27/24 01:42 Pulse Oximetry 95 04/27/24 01:42 Oxygen Delivery Me thod Room Air 04/27/24 01:10 MDM - Headache Medical Decision Making Patient was mildly tachycardic on arrival. She was certainly hypertensive. 5 mg of IV metoprolol given. Blood pressure now 173/59, heart rate 62. CT is negative for hemorrhage. Headache is Improved. She has no signs of stroke clinically. Will add 5 mg of amlodipine if blood pressure stays over 160 systolic. She will measure at home. She will be allowed discharge otherwise. Close outpatient follow-up. Return for new or worsening symptoms. Lab Data 04/26/24 23:24 04/26/24 23:[address] 04/26/24 23:33 IMPRESSION: 1. No acute intracranial abnormality. 2. Right mastoid effusion. 3. Chronic/age-related changes as above. Chest X-Ray 04/26/24 23:54 IMPRESSION: No definite acute cardiopulmonary findings within limitations of the examination. Laboratory Results WBC 5.96 10^3/uL (3.29-11.43) 04/26/24 23: RBC 4.87 10^6/uL (3.85-5.65) 04/26/24 23:24 Hgb 14.60 g/dL (11.27-16.99) 04/26/24 23:24 Hct 43.2 % (36-47) 04/26/24 23:24 MCV 88.7 fl (85-98) 04/26/24 23:24 MCH 30.0 pg (27-33) 04/26/24 23: MCHC 33.8 g/dL (30-55) 04/26/24 23:24 RDW 11.2 % (12.1-15.1) L 04/26/24 23:24 Plt Count 227 10^3/cmm (157-399) 04/26/24 23:24 MPV 9.6 fL (7.4-10.4) 04/26/24 23:24 Neut % (Auto) 73.9 % 04/26/24 23:24 Lymph % (Auto) 16.4 % 04/26/24 23:24 Mcleod % (Auto) 7.9 % 04/26/24 23:24 Eos % (Auto) 1.3 % 04/26/24 23: Baso % (Auto) 0.2 % 04/26/24 23:24 Neut # (Auto) 4.40 10^3/uL (1.8-7.7) 04/26/24 23:24 Lymph # (Auto) 1.0 10^3/uL (0.8-4.8) 04/26/24 23:24 Mcleod # (Auto) 0.5 10^3/uL (0.2-0.9) 04/26/24 23:24 Eos # (Auto) 0.1 10^3/uL (0.0-0.8) 04/26/24 23:24 Baso # (Auto) 0.0 10^3/uL (0.0-0.1) 04/26/24 23:24 Nucleated RBC % (auto) 0 % 04/26/24 23:24 Nucleated RBCs # 0.0 /100WBC 04/26/24 23:24 PT 12.30 SECONDS (12.1-14.9) 04/26/24 23:24 INR 0.86 (0.8-1.2) 04/26/24 23:24 APTT 26.9 SECONDS (23.9-36.7) 04/26/24 23:24 Sodium 135 mmol/L (136-145) L 04/26/24 23:24 Potassium 4.2 mmol/L (3.5-5.1) 04/26/24 23:24 Chloride 100 mmol/L (98-107) 04/26/24 23:24 Carbon Dioxide 22 mmol/L (22-29) 04/26/24 23:24 Anion Gap 17.2 (5-19) 04/26/24 23:24 BUN 18 mg/dL (8-23) 04/26/24 23:24 Creatinine 0.9 mg/dL (0.5-0.9) 04/26/24 23:24 GFR Calculation Not Reportable 04/26/24 23:24 Glucose 202 mg/dL (65-115) H 04/26/24 23:24 Calculated Osmolality 288 mOsm/kg (285-295) 04/26/24 23:24 Calcium 10.1 mg/dL (8.5-10.5) 04/26/24 23:24 Total Bilirubin 0.4 mg/dL (0.15-1.2) 04/26/24 23:24 AST 16 U/L (0-32) 04/26/24 23:24 ALT 11 U/L (0-33) 04/26/24 23:24 Alkaline Phosphatase 122 U/L (35-105) H 04/26/24 23:24 Troponin T Baseline 8 ng/L (0-10) 04/26/24 23:24 Troponin T 120 Minute 9.74 ng/L (0-10) 04/27/24 01:26 Delta Troponin T 1.74 ABS# (0-10) 04/27/24 01:26 NT-Pro-B Natriuret Pep 1234 pg/mL (0-450) H 04/26/24 23:24 Total Protein 7.8 g/dL (6.6-8.7) 04/26/24 23:24 Albumin 4.1 g/dL (3.5-5.2) 04/26/24 23:24 Globulin 3.7 g/dL (1.3-4.6) 04/26/24 23:24 All radiology interpretation(s) finalized by discharge Discharge Plan Discharge Patient Disposition: Home Clinical Impression: Headache, Hypertension Condition: Stable Prescriptions: New amlodipine 5 mg tablet 5 mg PO DAILY Qty: 30 0RF No Action anastrozole 1 mg tablet 1 mg PO DAILY levothyroxine 125 mcg tablet 125 mcg PO DAILY gabapentin 100 mg capsule 300 mg PO BID (DME) TLSO brace See Rx Instructions .Route .MEDSUPPLY Qty: 1 0RF Rx Instructions: As directed (DME) TLSO Brace See Rx Instructions .Route .MEDSUPPLY Qty: 1 0RF Rx Instructions: As directed sulfamethoxazole-trimethoprim [Bactrim DS] 800-160 mg tablet 1 tab PO BID 5 Days Qty: 10 0RF lisinopril 2.5 mg tablet 2.5 mg PO 0900 hydrocodone-acetaminophen 5-325 mg tablet 1 - 2 tab PO .Q4-6H Qty: 40 0RF Discharge Orders: Discharge ED (Routine); Ordered 04/27/24 Ordered By: Dutch Henry Referrals: Francisco Monsivais MD [Primary Care Provider] - 4-7 days Patient Instructions: Acute Headache (ED), Hypertension (ED), Opioid Safety, Pain Management Activity Restrictions/Additional Instructions: Take your blood pressure twice daily. If the top number remains greater than 160, you may take the medication prescribed. Return for worsening headache, continued vomiting, fever, mental status changes, vision changes, weakness, any other concerning symptoms. See your doctor this coming week. Print Language: Slovenian Coding Level of Care Code ED Digital Media Manager for Seth Maza
[2024-04-27 00:36] LABS: Basophils % 0.2 %; Eosinophils # 0.1 10^3/uL (0.0-0.8); Eosinophils % 1.3 %; Hematocrit 43.2 % (36-47); Lymphocytes % 16.4 %; Mean Corpuscular HGB Conc 33.8 g/dL (30-55); Mean Corpuscular Volume 88.7 fl (85-98); Mean Platelet Volume 9.6 fL (7.4-10.4); Monocytes # 0.5 10^3/uL (0.2-0.9); Monocytes % 7.9 %; Neutrophils % 73.9 %; Nucleated Red Blood Cells % 0 %; Platelet Count 227 10^3/cmm (157-399); Red Blood Count 4.87 10^6/uL (3.85-5.65); Red Cell Distribution Width 11.2 % (12.1-15.1); White Blood Count 5.96 10^3/uL (3.29-11.43)
[2024-04-27 01:10] VITALS: BP 181/63; PULSE 62; RESP 18; O2SAT 96
[2024-04-27 01:42] VITALS: BP 186/67; PULSE 64; RESP 18; O2SAT 95
--- NOTE | 2024-04-27 01:54 | ECG_ITS ---
[facility] Date: 2024-04-27 Pat Name: Brynn Israel Department: Room: Gender: Female Service Desk Manager: : 1935 Requested By: Dutch Grant Order Number: [id number] Harris MD: Zachary Amaya M.D. Measurements Intervals [place] Rate: 67 P: 27 [place]: 157 QRS: 31 QRSD: 84 T: 63 QT: 401 QTc: 426 Interpretive Statements SINUS RHYTHM Compared to ECG 04/27/2024 00:12:52 No significant changes Electronically Signed On 04-27-2024 12:42:54 INSPECTOR ADVANCED COMPOSITE by Zachary Amaya M.D. [email or web address] [id number]
[2024-04-27 01:57] LABS: Troponin 5 2HR 9.74 ng/L (0-10); Troponin 5 2HR Delta 1.74 ABS# (0-10)
[2024-04-27] MEDS: amlodipine 5 mg Tablet PO (01:58)
== END 2024-04-27 02:05 | disposition home or self-care (01) ==
PROVIDERS: Emergency Provider Emergency Medicine; PCP Family Medicine
DX: R51.9 Headache, unspecified (principal); I10 Essential (primary) hypertension
CPT/HCPCS: 36415; 70450; 71045; 80053; 83880; 84484; 85025; 85610; 85730; 93005; 96374; 99285; J3490

== ENCOUNTER 2024-05-27 06:00 | Outpatient (RCR) | payer MEDICARE, SELFPAY | END 2024-06-25 23:59 | disposition home or self-care (01) | LOC: SPT 06:00 | PROVIDERS: PCP Family Medicine; Visit Provider Orthopaedic Surgery | DX: M54.6 Pain in thoracic spine (principal); G89.29 Other chronic pain | CPT/HCPCS: 97110; 97164; 99213 ==

== ENCOUNTER 2024-06-26 06:00 | Outpatient (RCR) | payer MEDICARE, SELFPAY | END 2024-07-22 12:44 | disposition home or self-care (01) | LOC: SPT 06:00 | PROVIDERS: PCP Family Medicine; Visit Provider Orthopaedic Surgery | DX: M54.6 Pain in thoracic spine (principal); G89.29 Other chronic pain | CPT/HCPCS: 97110; 97116 ==

== ENCOUNTER 2024-06-27 14:07 | Outpatient (CLI) | payer MEDICARE, SELFPAY ==
--- NOTE | 2024-06-27 14:12 | XR_ITS ---
WS: [id number] SCREENING DEXA SCAN [employer] CLINICAL INFORMATION: OTHER DISORDER OF BONE DENSITY STRUCTURE COMPARISON: None. FINDINGS: The L1-L4 bone mineral density measures 1.087 g/cm2. This corresponds to a T score score of -0.8 and Z score of 1.6. Left femoral neck bone mineral density measures 0.533 g/cm2. This corresponds to a T score of -3.8 and Z score of -1.0. Right femoral neck bone mineral density measures 0.483 g/cm2. This corresponds to a T score -4.2of and Z score of -1.4. Mean femoral neck bone mineral density measures 0.508 g/cm2. This corresponds to a T score of -4.0 and Z score of -1.2. XR/XR DEXA axial skeleton* [id number] IMPRESSION: Normal bone mineralization. Osteoporosis femoral necks. Patient's FRAX calculated 10 year probability for major osteoporotic fracture i s 42.7% and osteoporotic hip fracture is 24.8%.
== END 2024-06-27 14:08 | disposition home or self-care (01) ==
PROVIDERS: PCP Family Medicine; Visit Provider Internal Medicine
DX: M81.0 Age-related osteoporosis without current pathological fracture (principal)
CPT/HCPCS: 77080

== ENCOUNTER 2024-07-17 14:12 | Outpatient (CLI) | payer MEDICARE, SELFPAY ==
--- NOTE | 2024-07-17 14:42 | MM_ITS ---
WS: [id number] BILATERAL 3D TOMOSYNTHESIS DIGITAL DIAGNOSTIC MAMMOGRAPHY WITH CAD CLINICAL INFORMATION: POST BX RT BR. HISTORY: History of RIGHT breast cancer COMPARISON: 2022 TECHNIQUE: Bilateral CC, MLO, and ML views. FINDINGS: The breasts are composed of heterogeneous fibroglandular density, which can limit the detection of small underlying mass lesions. Punctate and lucent centered calcifications. Vascular calcifications. Biopsy clip RIGHT breast corresponding to the previously described hypoechoic nodule at the 10 o'clock position 5 cm from the nipple. This appears slightly smaller and less dense compared to 202. Outside pathology is unavailable at this time. This was reportedly benign. ULTRASOUND BREAST RIGHT TECHNIQUE: Ultrasound right breast focused area of concern. CLINICAL INFORMATION: POST BX RT BR. COMPARISON: 01/04/2023 FINDINGS: Ultrasound RIGHT breast 10 o'clock position 5 cm from the nipple. Again seen is the previously biopsied hypoechoic nodule measuring 4 x 5 x 5 mm which is stable in appearance compared to 202. Outside pathology is not currently available. MM/MM diag tomosynthesis [id number] IMPRESSION: DENSITY: The breasts are heterogeneously dense, which may obscure small masses. BI-RADS: 2 - Benign FOLLOW UP: 1 Year Follow-up Recommend return to annual diagnostic mammography.
--- NOTE | 2024-07-17 15:31 | US_ITS ---
WS: [id number] BILATERAL 3D TOMOSYNTHESIS DIGITAL DIAGNOSTIC MAMMOGRAPHY WITH CAD CLINICAL INFORMATION: POST BX RT BR. HISTORY: History of RIGHT breast cancer COMPARISON: 2022 TECHNIQUE: Bilateral CC, MLO, and ML views. FINDINGS: The breasts are composed of heterogeneous fibroglandular density, which can limit the detection of small underlying mass lesions. Punctate and lucent centered calcifications. Vascular calcifications. Biopsy clip RIGHT breast corresponding to the previously described hypoechoic nodule at the 10 o'clock position 5 cm from the nipple. This appears slightly smaller and less dense compared to 202. Outside pathology is unavailable at this time. This was reportedly benign. ULTRASOUND BREAST RIGHT TECHNIQUE: Ultrasound right breast focused area of concern. CLINICAL INFORMATION: POST BX RT BR. COMPARISON: 01/04/2023 FINDINGS: Ultrasound RIGHT breast 10 o'clock position 5 cm from the nipple. Again seen is the previously biopsied hypoechoic nodule measuring 4 x 5 x 5 mm which is stable in appearance compared to 202. Outside pathology is not currently available. US/US breast RT limited* [id number] IMPRESSION: DENSITY: The breasts are heterogeneously dense, which may obscure small masses. BI-RADS: 2 - Benign FOLLOW UP: 1 Year Follow-up Recommend return to annual diagnostic mammography.
== END 2024-07-17 14:13 | disposition home or self-care (01) ==
PROVIDERS: PCP Family Medicine; Visit Provider Internal Medicine
DX: C50.411 Malignant neoplasm of upper-outer quadrant of right female breast (principal); R92.333 Mammographic heterogeneous density, bilateral breasts; R92.1 Mammographic calcification found on diagnostic imaging of breast; N63.11 Unspecified lump in the right breast, upper outer quadrant
CPT/HCPCS: 76642; 77062; G0279